=== PATIENT | female | born 1970 | race Caucasian/White ===

== ENCOUNTER 2018-05-09 14:28 | Outpatient (REF) | payer MEDICARE, SELFPAY ==
[2018-05-14 11:11] LABS: Codeine Negative ng/mL (Cutoff: 25); Dihydrocodeine 70 ng/mL (Cutoff: 25); Hydrocodone 348 ng/mL (Cutoff: 25); Hydromorphone Negative ng/mL (Cutoff: 25); Morphine Negative ng/mL (Cutoff: 25); Naloxone Negative ng/mL (Cutoff: 25); Norhydrocodone 1518 ng/mL (Cutoff: 25); Noroxycodone Negative ng/mL (Cutoff: 25); Noroxymorphone Negative ng/mL (Cutoff: 25); Opiates Interpretation Positive.
== END 2018-05-09 14:48 ==
LOC: NCHCN 14:28
PROVIDERS: PCP Family Medicine; Visit Provider Family Medicine
DX: M54.9 Dorsalgia, unspecified (principal); Z79.891 Long term (current) use of opiate analgesic; G89.29 Other chronic pain
CPT/HCPCS: 80361

== ENCOUNTER → 2018-11-05 08:42 | Outpatient (BNVA) | payer MEDICARE, MEDICAID, SELFPAY | PROVIDERS: PCP Family Medicine; Visit Provider Psychiatry & Neurology Neurology | DX: R55 Syncope and collapse (principal); R90.89 Other abnormal findings on diagnostic imaging of central nervous system; G43.709 Chronic migraine without aura, not intractable, without status migrainosus | CPT/HCPCS: 99205; 99215 ==

== ENCOUNTER 2018-11-10 00:56 | Outpatient (CLI) | payer MEDICARE, MEDICAID, SELFPAY ==
--- NOTE | 2018-11-10 08:41 | DI.MRI_ITS ---
SYMPTOM/DIAGNOSIS: ABNORMAL SIGNAL IN LT SYLVIAN FISSURE, R55,R90.89, H/O PASSING OUT, HEADACHES MRA [place]: MR angiography of the region of the [place] was performed according to the usual protocol. The patient reportedly has a history of possibly abnormal MRI in the region of left sylvian fissure raising the possibility of aneurysm. On today's examination, there is no evidence of an intracranial aneurysm of the middle cerebral branches on the left. The internal, carotid, basilar,anterior, middle and posterior cerebral arteries appear intact with no evidence of aneurysm, occlusion or stenosis. CONCLUSION: Negative MR angiography [place] region.
== END 2018-11-10 01:16 ==
PROVIDERS: PCP Family Medicine; Visit Provider Psychiatry & Neurology Neurology
DX: R55 Syncope and collapse (principal); R51 Headache; R90.89 Other abnormal findings on diagnostic imaging of central nervous system
CPT/HCPCS: 70544

== ENCOUNTER 2018-11-17 02:34 | Outpatient (CLI) | payer MEDICARE, SELFPAY ==
--- NOTE | 2018-12-15 14:56 | ZIOP_ITS ---
MONITOR IN PLACE: 13 days, 4 hours, November 252018 Baseline rhythm sinus. Rare single PAC. No SVT or atrial fibrillation. Rare single PVC. No VT. No bradycardia/block. 62 triggered events, all occurring during sinus rhythm with PVC's. SYMPTOMS: Skipped, irregular beats, lightheadedness, dizziness occurring during sinus rhythm +/- single PVC, 79 -93 bpm. Average heart rate sinus 84 bpm, range 61-138 bpm.
== END 2018-11-17 02:54 ==
PROVIDERS: PCP Family Medicine; Visit Provider Psychiatry & Neurology Neurology
DX: R69 Illness, unspecified (principal)

== ENCOUNTER 2018-11-25 10:00 | Outpatient (CLI) | payer MEDICARE, MEDICAID, SELFPAY ==
--- NOTE | 2018-12-02 10:26 | PDOC.EEG_ITS ---
EEG: [facility] Department of Neurology LONG-TERM AMBULATORY EEG REPORT Date of Recordin11/25/18 at 10:34:47 to 11/26/18 at 10:47:12 Interpreting Physician: Dr. Yenny Martinez PCP/Referring Provider: Dr. Molly Hinson Reason for study: Ms. Seth is a 48 year-old woman with history of known syncope and pre-syncope who has developed new spells with loss of awareness in the last 1 year. Current Medications: albuterol sulfate [ProAir HFA] 2 puff INHALATION Q4H PRN 12/19/15 gabapentin 900 mg PO HS 12/19/15 medroxyprogesterone 1 ea IM .Q3M 12/19/15 omeprazole 40 mg PO HS 12/19/15 quetiapine [Seroquel] 600 mg PO HS 12/19/15 sertraline [Zoloft] 300 mg PO HS 12/19/15 topiramate [Topamax] 200 mg PO HS 12/19/15 ranitidine HCl [Zantac] 1 tab PO HS 01/17/16 albuterol 90 mcg/actuation aerosol inhaler mcg IH .4-6 h PRN 09/17/18 atorvastatin 10 mg tablet 10 mg PO DAILY 09/17/18 cyclobenzaprine 10 mg tablet 10 mg PO HS tab 09/17/18 ezetimibe 10 mg tablet 10 mg PO DAILY 09/17/18 hydrocodone 5 mg-acetaminophen 325 mg tablet 1 tab PO TID tab 09/17/18 lorazepam 0.5 mg tablet 0.5 mg PO BID PRN tab 09/17/18 nitroglycerin 0.4 mg sublingual tablet 0.4 mg SL Q5-15M PRN 09/17/18 polyethylene glycol 3350 17 gram/dose oral powder 17 gm PO DAILY 09/17/18 quetiapine 50 mg tablet 50 mg PO BID 09/17/18 sumatriptan 100 mg tablet 100 mg PO BID PRN tab 09/17/18 acetaminophen 325 mg capsule 325 mg PO Q6H PRN 11/05/18 bupropion HCl 100 mg tablet 200 mg PO HS tab 11/05/18 midodrine 5 mg tablet 5 mg PO TID 11/05/18 naproxen sodium 220 mg capsule 220 mg PO BID PRN 03/27/19 METHODS: An 18-channel digitized electroencephalogram was recorded in the ambulatory setting with video. The 10/20 international system of electrode placement was used and bipolar and referential electrode montages were recorded. In addition to EEG the patient was monitored for EKG and by video. Activation procedures of photic stimulation and hyperventilation were performed if applicable. The duration of the recording was ~24 hours. DESCRIPTION OF EEG: Waking background activity: During maximal wakefulness a 9-Hz posterior background rhythm was present which was well-modulated, symmetrical, reactive to eye opening, and of moderate voltage. Faster frequencies were present in the bilateral anterior head regions. There was a normal anterior-posterior voltage gradient. Drowsy and sleeping background activity: During drowsiness, there was attenuation of the posterior dominant background rhythm and vertex waves. Normal stage II and III sleep was present with symmetrical sleep spindles, K- complexes, and vertex waves with slowing of the background rhythm to delta/theta frequencies. REM sleep was not seen. The patient had frequent nocturnal arousals. Arousal was unremarkable. Interictal abnormalities: none. Ictal findings: No events were recorded. Activating Procedures: Photic stimulation was not performed due to patient preference. Hyperventilation was performed with moderate effort and produced no physiological slowing of the background. EKG: EKG revealed normal sinus rhythm. INTERPRETATION: This long-term EEG is normal during the awake and sleep states as well as during the activation procedures. There were frequent nocturnal arousals and no REM sleep was captured. PRIOR EEG: none CLINICAL CORRELATION: No focal regions of cerebral dysfunction or epileptiform activity was present. Epilepsy remains a clinical diagnosis and a normal EEG does not rule out epilepsy. The frequent nocturnal arousals could indicate an underlying sleep disorder. Clinical correlation is advised. Yenny Martinez MD
== END 2018-11-25 10:20 ==
PROVIDERS: PCP Family Medicine; Visit Provider Psychiatry & Neurology Neurology
DX: R55 Syncope and collapse (principal); I49.3 Ventricular premature depolarization; I49.1 Atrial premature depolarization
CPT/HCPCS: 0296T; 95951; 95953

== ENCOUNTER 2018-12-15 11:03 | Outpatient (CLI) | payer MEDICARE, SELFPAY | END 2018-12-15 11:23 | PROVIDERS: PCP Family Medicine; Referring Provider Family Medicine; Visit Provider Internal Medicine Interventional Cardiology | DX: R55 Syncope and collapse (principal); I49.3 Ventricular premature depolarization; I49.1 Atrial premature depolarization | CPT/HCPCS: 0298T ==

== ENCOUNTER 2019-02-19 15:39 | Outpatient (REF) | payer MEDICARE, SELFPAY ==
[2019-02-19 21:25] LABS: ALT 30 U/L (12-78); AST 18 U/L (15-37); Albumin 3.5 g/dL (3.4-5.0); Alkaline Phosphatase 71 U/L (46-116); Anion Gap 13.9 mmol/L (3-11); BUN 14 mg/dL (7-18); Bilirubin, Total 0.2 mg/dL (0.2-1.0); CO2 18.1 mmol/L (21.0-32.0); CREATININE 0.88 mg/dL (0.55-1.02); Calcium 8.9 mg/dL (8.5-10.1); Chloride 109 mmol/L (98-107); Glucose 115 mg/dL (70-100); Potassium 4.4 mmol/L (3.5-5.1); Sodium 141 mmol/L (136-145); Total Protein 6.6 g/dL (6.4-8.2)
[2019-02-23 10:11] LABS: Rheumatoid Factor 8 IU/mL (<12.5)
[2019-02-23 10:42] LABS: Hepatitis C Ab w Rflx HCV PCR Negative (NEGAT)
[2019-02-23 11:54] LABS: Methylmalonic Acid 0.17 nmol/mL (<=0.40)
[2019-02-23 14:57] LABS: ANA Interpretation Negative (NEGAT)
== END 2019-02-19 15:59 ==
LOC: NCHCN 15:39
PROVIDERS: PCP Family Medicine; Visit Provider Family Medicine
DX: E53.8 Deficiency of other specified B group vitamins (principal); R55 Syncope and collapse; R23.3 Spontaneous ecchymoses; E78.2 Mixed hyperlipidemia; M19.90 Unspecified osteoarthritis, unspecified site; M25.50 Pain in unspecified joint
CPT/HCPCS: 80053; 80186; 86803; 86038; 86140; 86431

== ENCOUNTER 2019-06-04 12:43 | Outpatient (REF) | payer MEDICARE, SELFPAY ==
[2019-06-04 21:23] LABS: HCT 39.2 % (36.0-46.0); HGB 12.9 g/dL (12.0-15.5); Mean Corp. HGB Concentration 32.9 g/dL (32.0-36.0); Mean Corpuscular Hemoglobin 30.4 pg (27.0-33.0); Mean Corpuscular Volume 92.2 fL (80-95); Mean Platelet Volume 10.1 fL (8.0-11.0); Platelet Count 320 x1000/uL (130-400); RBC 4.25 m/cumm (4.00-5.20); RBC Distribution Width 15.5 % (11.7-14.6); White Blood Cell Count 12.07 k/cumm (4.4-10.8)
[2019-06-04 21:46] LABS: TSH (W/Ref FT4) 1.86 uIU/mL (0.36-3.74)
[2019-06-05 09:48] LABS: Vitamin B12 669 pg/mL (193-986)
== END 2019-06-04 13:03 ==
LOC: NCHCN 12:43
PROVIDERS: PCP Family Medicine; Visit Provider Family Medicine
DX: R10.9 Unspecified abdominal pain (principal); E53.8 Deficiency of other specified B group vitamins; R23.8 Other skin changes
CPT/HCPCS: 85027; 82607; 84443

== ENCOUNTER 2020-04-29 16:30 | Outpatient (REF) | payer MEDICARE, MEDICAID, SELFPAY ==
--- NOTE | 2020-04-29 13:45 | PAPFT_PTH ---
PATIENT: Manisha Seth LOC: [facility] U#:[id number] AGE/SX: 49/F ROOM: RE04/29/[address]: Molly Hinson V : 1970 BED: DIS: 04/29/2020 SPEC #: [id number] RECD: 04/29/20 18:12 STATUS: GERARD REQ #: [id number] JASON: 04/29/20 13:[address]: Molly Hinson V DEPT: [facility] Cytology RECD BY: Kalyani Johnson Tissues: 1 - CX/ENDOCX FOR PAP SMEARS Procedures: PAP THIN PREP/UVM Screening HPV DNA PROBE Comments: [id number]
[2020-04-29 19:30] LABS: Abs Immature Grans 0.04 10^3/uL (0.0-0.06); Absolute Basophil Count 0.05 10^3/uL (0.0-0.2); Absolute Monocyte Count 0.69 10^3/uL (0.1-0.8); Absolute Neutrophil Count 6.79 10^3/uL (1.2-6.7); Basophils % 0.4; Eosinophils % 1.7; HCT 38.9 % (36.0-46.0); HGB 12.9 g/dL (11.2-15.7); Immature Grans % 0.3; Lymphocytes % 35.1; MCH 30.6 pg (27.0-33.0); MCHC 33.2 % (32.0-36.0); MCV 92.2 fL (80-95); MPV 10.4 fL (8.0-11.0); Monocytes % 5.8; Neutrophils % 56.7; Nucleated RBC 0 %; Platelet Count 311 10^3/uL (130-400); RBC 4.22 10^6/uL (3.93-5.22); RDW 14.9 % (11.7-14.6); RDW-SD 50.6 fL; WBC 11.98 10^3/uL (4.4-10.8)
[2020-04-29 19:48] LABS: ALT 37 U/L (14-59); AST 21 U/L (15-37); Albumin 3.8 g/dL (3.4-5.0); Alkaline Phosphatase 71 U/L (46-116); Anion Gap 11.9 mmol/L (3-11); BUN 15 mg/dL (7-18); Bilirubin, Total 0.2 mg/dL (0.2-1.0); CO2 22.1 mmol/L (21.0-32.0); CREATININE 0.99 mg/dL (0.55-1.02); Chloride 106 mmol/L (98-107); Estimated GFR 59.37 (mL/min/1.73m2); Glucose 103 mg/dL (74-106); Potassium 4.2 mmol/L (3.5-5.1); Sodium 140 mmol/L (136-145); TSH (W/Ref FT4) 1.29 uIU/mL (0.36-3.74); Total Protein 6.8 g/dL (6.4-8.2)
== END 2020-04-29 16:50 ==
LOC: NCHCN 16:30
PROVIDERS: PCP Family Medicine; Visit Provider Family Medicine
DX: Z12.4 Encounter for screening for malignant neoplasm of cervix (principal); R23.8 Other skin changes; E66.9 Obesity, unspecified; Z11.51 Encounter for screening for human papillomavirus (HPV)
CPT/HCPCS: 80053; 88142; 84443; 85025; 87624

== ENCOUNTER 2020-05-02 01:17 | Outpatient (CLI) | payer MEDICARE, MEDICAID, SELFPAY ==
--- NOTE | 2020-05-02 11:07 | DI.RAD_ITS ---
EXAM: XR CHEST 2V PA LATERAL CLINICAL HISTORY: DYSPNEA ON EXERTION,R06.09, ABNL BOWEL SOUNDS, R19.15 TECHNIQUE: 2D digital imaging was performed. COMPARISON: No exams were available for comparison FINDINGS: MEDIASTINUM: Normal. HEART: Normal. PULMONARY VASCULATURE: Normal. LUNGS: Clear. PLEURAL SPACE: No pleural effusion or pneumothorax. BONE:Within normal limits for the patient's age. OTHER FINDINGS:Normal. IMPRESSION: No acute pulmonary findings. DATA REPOSITORY: RADIATION DOSE DELIVERED:
== END 2020-05-02 01:37 ==
PROVIDERS: PCP Family Medicine; Visit Provider Family Medicine
DX: R06.09 Other forms of dyspnea (principal); R19.15 Other abnormal bowel sounds
CPT/HCPCS: 71046

== ENCOUNTER → 2020-05-25 13:45 | Outpatient (BNVA) | payer MEDICARE, MEDICAID, SELFPAY | PROVIDERS: PCP Family Medicine; Referring Provider Family Medicine; Visit Provider Surgery | DX: K21.9 Gastro-esophageal reflux disease without esophagitis (principal); K58.9 Irritable bowel syndrome, unspecified; Z80.0 Family history of malignant neoplasm of digestive organs | CPT/HCPCS: 99214; 99242 ==

== ENCOUNTER 2020-06-06 07:44 | Outpatient (CLI) | payer MEDICARE, MEDICAID, SELFPAY ==
[2020-06-07 20:43] LABS: COVID-19 RT-PCR Result NEGATIVE (Negative)
== END 2020-06-06 08:04 ==
PROVIDERS: PCP Family Medicine; Visit Provider Surgery
DX: Z01.818 Encounter for other preprocedural examination (principal); Z11.59 Encounter for screening for other viral diseases
CPT/HCPCS: U0003

== ENCOUNTER 2020-06-09 11:16 | Day surgery (SDC) | payer MEDICARE, MEDICAID, SELFPAY ==
[2020-06-09 11:23] VITALS: BP 117/81; PULSE 106; RESP 22; TEMP 36.4; O2SAT 95
[2020-06-09] MEDS: Lactated Ringers 1,000 ML 80 ML IV (11:47)
--- NOTE | 2020-06-09 12:33 | BOWEL_PTH ---
PATIENT: Manisha Seth LOC: [facility] U#:[id number] AGE/SX: 50/F ROOM: RE06/09/[address]: Teresa Rebolledo : 1970 BED: DIS: 06/09/2020 SPEC #: [id number] RECD: 06/09/20 17:07 STATUS: GERARD REQ #: [id number] JASON: 06/09/20 12:[address]: Teresa Rebolledo DEPT: Surgical Specimen RECD BY: Kalyani Johnson ENTERED: 06/09/20 17:10 SP TYPE: Bowel OTHR DR: Molly Hinson V Tissues: 1 - BIOPSY BOWEL 2 - STOMACH BIOPSY 3 - STOMACH BIOPSY 4 - ESOPHAGUS BIOPSY 5 - ESOPHAGUS BIOPSY 6 - BIOPSY BOWEL 7 - BIOPSY BOWEL 8 - BIOPSY BOWEL 9 - BIOPSY BOWEL 10 - BIOPSY BOWEL Procedures: GROSS AND MICRO LEVEL 4 Comments: [id number] ([facility]#)
[2020-06-09 13:30] VITALS: BP 142/72; PULSE 75; RESP 20; TEMP 36.7; O2SAT 97
[2020-06-09 13:35] VITALS: BP 136/70; PULSE 74; RESP 21; TEMP 36.7; O2SAT 97
[2020-06-09 13:40] VITALS: BP 143/73; PULSE 74; RESP 19; TEMP 36.7; O2SAT 95
[2020-06-09 13:45] VITALS: BP 136/70; PULSE 73; RESP 20; TEMP 36.7; O2SAT 95
--- NOTE | 2020-06-09 13:53 | W.PM.ENDDOP ---
Date of service: 06/09/20 Time of Service: 13:53 Endoscopy Report DATE OF PROCEDURE: 06/09/20 PRE-OP DIAGNOSIS: gerd POST-OP DIAGNOSIS: other (hiatal hernia/gastritis/bile reflux) PROCEDURE: EGD w/ BX SURGEON: Teresa Rebolledo ANESTHESIA: GETA ESTIMATED BLOOD LOSS: 1 PATHOLOGY: other COMPLICATIONS: None DISPOSITION: PACU PROCEDURE DESCRIPTION: After informed consent was obtained the patient was take to the procedure room and placed in a supine position. Monitors were applied and a time out was done. The patients name, date of , procedure type, allergies to medications and metal in their body was reviewed. A bite block was placed and the patient was sedated. Once sedated and comfortable the gastroscope was advanced through the oropharynx which was grossly normal into the esophagus. The proximal and mid-esophagus were nl. In the distal esophagus there was mild erthyema noted. No esophageal strictures/varices /diverticula noted. There is some mild esophagitis at the GE junction. She has a small hiatal hernia. The scope was advanced into the stomach and through the pylorus into the 3rd portion of the duodenum. The duodenum was noted to be nl. Biopsies were done all specimens are retrieved and no bleeding is noted.. The scope was retracted back into the stomach and biopsies were done to rule out H. pylori. There were no ulcers. Mild gastritis at the antrum in a striped fashion. The scope was retroflexed. The cardia and fundus were noted to be normal. There small a hiatal hernia noted. The scope was retracted back into the esophagus and biopsies were done of the GE junction to rule out Zamora's. The Z line was regular.
--- NOTE | 2020-06-09 13:55 | COLE_ITS ---
Date of service: 06/09/20 Time of Service: 13:55 Colonoscopy Report Date of procedure: 06/09/20 Surgeon: Teresa Rebolledo Anesthesia proc note operative: GETA Estimated blood loss (mL): 1 Pathology: other Complications: None Disposition: PACU Prep: Miralax/Dulcolax Retraction Time: 25 mins Procedure Description: After informed consent was obtained the patient was taken to the procedure room and placed in a left decubitous position. Monitors were applied and a time out was done. The patients name, date of , procedure, allergies to medications and metal in their body was reviewed. The patient was then sedated. Once sedated and comfortable a rectal exam was done. External exam was normal. Internal exam revealed a normal sphincter tone and no palpable masses. The scope was then introduced and retrofelexed. No internal hemorrhoids were identified. The scope was then advanced to the cecum w difficulty. The colon is very tortuous. The TI and appendiceal orifice were identified. The prep was good. The scope was then slowly retracted over 25 minutes back into the rectum. Polyps were removed at: 20cm- hot snare. .75cm O- IIa. 70cm- hot biter. 5mm O-IIb 60cm- cold biter. 50cmx2: one w/ a cold biter and one w/ a hot snare. O- IIb & IIa. The scope was removed and the patient was woken up and taken back to Same day surgery in stable condition. The patient tolerated the procedure well and there were no immediate complications. Follow up: The patient should follow up in 3-5 years, path pd, unless they develop changes in bowel habits or other new gastrointestinal complaints.
--- NOTE | 2020-06-09 14:10 | W.PM.DSUDISC ---
Discharge Plan Disposition Patient Disposition: HOME Condition: Good Discharge Details Reason For Visit: e Attending Provider: Teresa Rebolledo Primary Care Provider: Molly Hinson V Home Meds and New Rx's Prescriptions: New pantoprazole [Protonix] 40 mg tablet,delayed release (DR/EC) 40 mg PO DAILY Qty: 30 RF: 12 sucralfate [Carafate] 1 gram tablet 1 g PO QACHS Qty: 120 RF: 12 Continued midodrine 5 mg tablet 5 mg PO TID RF: 0 acetaminophen [Tylenol] 325 mg capsule 325 mg PO Q6H PRNRF: 0 naproxen sodium [Aleve] 220 mg capsule 220 mg PO BID PRNRF: 0 atorvastatin [Lipitor] 10 mg tablet 10 mg PO DAILY RF: 0 sumatriptan succinate [Imitrex] 100 mg tablet 100 mg PO BID PRN (Reason: prn) RF: 0 lorazepam [Ativan] 0.5 mg tablet 0.5 mg PO BID PRNRF: 0 nitroglycerin [Nitrostat] 0.4 mg tablet, sublingual 0.4 mg SL Q5-15M PRNRF: 0 ezetimibe [Zetia] 10 mg tablet 10 mg PO DAILY RF: 0 quetiapine [Seroquel] 50 mg tablet 50 mg PO BID RF: 0 cyclobenzaprine 10 mg tablet 10 mg PO HS RF: 0 polyethylene glycol 3350 [Miralax] 17 gram/dose powder 17 gm PO DAILY RF: 0 hydrocodone-acetaminophen 5-325 mg tablet 1 tab PO TID RF: 0 bisacodyl [Dulcolax (bisacodyl)] 5 mg tablet,delayed release (DR/EC) 5 mg PO ONCE Qty: 4 RF: 0 bupropion HCl [Wellbutrin SR] 150 mg tablet sustained-release 12 hr 150 mg PO BID RF: 0 hydrocodone-acetaminophen 5-325 mg tablet 1 tab PO BID PRNRF: 0 lorazepam [Ativan] 0.5 mg tablet 0.5 mg PO DAILY PRNRF: 0 sertraline [Zoloft] 100 MG tablet 300 mg PO HS RF: 0 quetiapine [Seroquel] 200 MG tablet 600 mg PO HS RF: 0 gabapentin 300 MG capsule 900 mg PO HS RF: 0 topiramate [Topamax] 200 MG tablet 200 mg PO HS RF: 0 albuterol sulfate [ProAir HFA] 200 PUFF HFA aerosol inhaler 2 puff Inhalation Q4H PRNRF: 0 medroxyprogesterone 150 MG/ML suspension 1 ea IM .Q3M RF: 0 Changed famotidine 20 mg tablet 20 mg PO BID Qty: 0 RF: 0 Discontinued polyethylene glycol 3350 17 gram/dose powder 238 g PO ONCE Qty: 238 RF: 0 omeprazole 40 MG capsule,delayed release(DR/EC) 40 mg PO HS RF: 0 Discharge Instructions Additional Instructions: Findings:hiatal hernia/esophagitis/colon polyps Follow up:Continue with lifestyle modifications: no alcohol, tobacco products, Aspirin or NSAID's (ibuprofen, Motrin, Naprosyn, aleve, etc), soda pop/any carbonated beverages, caffeine (including tea & chocolate), and acidic foods, (tomatoes, citrus, onions, peppermints) spicy or fried/fatty foods. Do not lie down for 30 minutes after eating, and do not eat 2 hours prior to bedtime. Avoid wearing tight fitting clothing/ belts. -Note medication changes. -repeat colonoscopy in 3-5yrs. WIll send a letter w/ results of the pathology report and when to repeat the scope. Please call if you develop: fevers >101.5 Nausea or Vomiting Abdominal pain that is not transient DAY SURGERY UNIT POST COLONOSCOPY INSTRUCTIONS 1. Because there will be medication in your system for the next 24 hours, you may feel a little sleepy. Your coordination will be affected. Therefore: a. Do not drive or operate dangerous equipment for 24 hours. b. Do not drink alcohol beverages for 24 hours (not even beer). c. Plan to go home and rest for the day. 2. Generally there are no restrictions on your activity after a day or so has gone by, but you may feel a bit fatigued for a few days. 3 After you arrive home you may have a light meal and return to a normal diet as you can tolerate it without feeling sick to your stomach. 4. After surgery, you may feel pain or discomfort. This should be only transient, but if it persists please contact your doctor. 5. If there are any questions regarding the findings of your procedure, please feel free to contact your doctor. 6. If you are unable to contact your doctor with a problem, contact the hospital at [phone]. 4. Continue all your regular medications unless directed otherwise. I understand the above instructions and have no questions. Signature of Patient or Responsible Adult Escort Date/Time Name of Responsible Adult Escort Signature of Nurse Date/Time Activity:: No strenuous activity or heavy lifting x24 hours Diet:: Small light meals x24 hours Discharge Orders Discharge Orders: Discharge Order (Routine); Ordered 06/09/20 Ordered By: Teresa Rebolledo DS: Diagnosis Discharge Diagnosis (1) GERD (gastroesophageal reflux disease): Status: Chronic (2) Hiatal hernia with GERD: Status: Acute (3) Adenomatous colon polyp: Status: Acute
[2020-06-09 14:25] VITALS: BP 124/70; PULSE 78; RESP 20; TEMP 37.1; O2SAT 97
--- NOTE | 2020-06-15 15:23 | W.PM.DSUDISC ---
Discharge Plan Disposition Patient Disposition: HOME Condition: Good Discharge Details Reason For Visit: e Attending Provider: Teresa Rebolledo Primary Care Provider: Molly Hinson V Home Meds and New Rx's Prescriptions: New pantoprazole [Protonix] 40 mg tablet,delayed release (DR/EC) 40 mg PO DAILY Qty: 30 RF: 12 sucralfate [Carafate] 1 gram tablet 1 g PO QACHS Qty: 120 RF: 12 Continued midodrine 5 mg tablet 5 mg PO TID RF: 0 acetaminophen [Tylenol] 325 mg capsule 325 mg PO Q6H PRNRF: 0 naproxen sodium [Aleve] 220 mg capsule 220 mg PO BID PRNRF: 0 atorvastatin [Lipitor] 10 mg tablet 10 mg PO DAILY RF: 0 sumatriptan succinate [Imitrex] 100 mg tablet 100 mg PO BID PRN (Reason: prn) RF: 0 lorazepam [Ativan] 0.5 mg tablet 0.5 mg PO BID PRNRF: 0 nitroglycerin [Nitrostat] 0.4 mg tablet, sublingual 0.4 mg SL Q5-15M PRNRF: 0 ezetimibe [Zetia] 10 mg tablet 10 mg PO DAILY RF: 0 quetiapine [Seroquel] 50 mg tablet 50 mg PO BID RF: 0 cyclobenzaprine 10 mg tablet 10 mg PO HS RF: 0 polyethylene glycol 3350 [Miralax] 17 gram/dose powder 17 gm PO DAILY RF: 0 hydrocodone-acetaminophen 5-325 mg tablet 1 tab PO TID RF: 0 bisacodyl [Dulcolax (bisacodyl)] 5 mg tablet,delayed release (DR/EC) 5 mg PO ONCE Qty: 4 RF: 0 bupropion HCl [Wellbutrin SR] 150 mg tablet sustained-release 12 hr 150 mg PO BID RF: 0 hydrocodone-acetaminophen 5-325 mg tablet 1 tab PO BID PRNRF: 0 lorazepam [Ativan] 0.5 mg tablet 0.5 mg PO DAILY PRNRF: 0 sertraline [Zoloft] 100 MG tablet 300 mg PO HS RF: 0 quetiapine [Seroquel] 200 MG tablet 600 mg PO HS RF: 0 gabapentin 300 MG capsule 900 mg PO HS RF: 0 topiramate [Topamax] 200 MG tablet 200 mg PO HS RF: 0 albuterol sulfate [ProAir HFA] 200 PUFF HFA aerosol inhaler 2 puff Inhalation Q4H PRNRF: 0 medroxyprogesterone 150 MG/ML suspension 1 ea IM .Q3M RF: 0 Changed famotidine 20 mg tablet 20 mg PO BID Qty: 0 RF: 0 Discontinued polyethylene glycol 3350 17 gram/dose powder 238 g PO ONCE Qty: 238 RF: 0 omeprazole 40 MG capsule,delayed release(DR/EC) 40 mg PO HS RF: 0 Discharge Instructions Additional Instructions: Findings:hiatal hernia/esophagitis/colon polyps Follow up:Continue with lifestyle modifications: no alcohol, tobacco products, Aspirin or NSAID's (ibuprofen, Motrin, Naprosyn, aleve, etc), soda pop/any carbonated beverages, caffeine (including tea & chocolate), and acidic foods, (tomatoes, citrus, onions, peppermints) spicy or fried/fatty foods. Do not lie down for 30 minutes after eating, and do not eat 2 hours prior to bedtime. Avoid wearing tight fitting clothing/ belts. -Note medication changes. -repeat colonoscopy in 3-5yrs. WIll send a letter w/ results of the pathology report and when to repeat the scope. Please call if you develop: fevers >101.5 Nausea or Vomiting Abdominal pain that is not transient DAY SURGERY UNIT POST COLONOSCOPY INSTRUCTIONS 1. Because there will be medication in your system for the next 24 hours, you may feel a little sleepy. Your coordination will be affected. Therefore: a. Do not drive or operate dangerous equipment for 24 hours. b. Do not drink alcohol beverages for 24 hours (not even beer). c. Plan to go home and rest for the day. 2. Generally there are no restrictions on your activity after a day or so has gone by, but you may feel a bit fatigued for a few days. 3 After you arrive home you may have a light meal and return to a normal diet as you can tolerate it without feeling sick to your stomach. 4. After surgery, you may feel pain or discomfort. This should be only transient, but if it persists please contact your doctor. 5. If there are any questions regarding the findings of your procedure, please feel free to contact your doctor. 6. If you are unable to contact your doctor with a problem, contact the hospital at [phone]. 9. Continue all your regular medications unless directed otherwise. I understand the above instructions and have no questions. Signature of Patient or Responsible Adult Escort Date/Time Name of Responsible Adult Escort Signature of Nurse Date/Time Stand Alone Forms: [place] (DSU) Activity:: No strenuous activity or heavy lifting x24 hours Diet:: Small light meals x24 hours Discharge Orders Discharge Orders: Discharge Order (Routine); Ordered 06/09/20 Ordered By: Teresa Rebolledo Discharge Data Discharge Date/Time-TO BE ENTERED AT DEPARTURE: 06/09/20 15:20 Discharge Comment: Pt walked out to her 's car. DS: Diagnosis Discharge Diagnosis (1) GERD (gastroesophageal reflux disease): Status: Chronic (2) Hiatal hernia with GERD: Status: Acute (3) Adenomatous colon polyp: Status: Acute
== END 2020-06-09 15:20 | disposition home or self-care (01) ==
PROVIDERS: PCP Family Medicine; Visit Provider Surgery
PROC: (CPT 45385; principal; 2020-06-09 11:45)
DX: Z12.11 Encounter for screening for malignant neoplasm of colon (principal); K21.00 Gastro-esophageal reflux disease with esophagitis, without bleeding; K29.70 Gastritis, unspecified, without bleeding; K44.9 Diaphragmatic hernia without obstruction or gangrene; Z79.01 Long term (current) use of anticoagulants; I48.91 Unspecified atrial fibrillation; F31.9 Bipolar disorder, unspecified; M79.7 Fibromyalgia; F17.210 Nicotine dependence, cigarettes, uncomplicated; K63.5 Polyp of colon
CPT/HCPCS: 45385; 45380; 43239; 88305; J2001; J2704

== ENCOUNTER 2020-08-18 18:45 | Outpatient (REF) | payer MEDICARE, MEDICAID, SELFPAY ==
[2020-08-20 11:36] LABS: COVID-19 RT-PCR UVMMC Result Negative (Negative)
== END 2020-08-18 19:05 ==
LOC: NCHCN 18:45
PROVIDERS: PCP Family Medicine; Visit Provider Family Medicine
DX: J06.9 Acute upper respiratory infection, unspecified (principal)
CPT/HCPCS: U0003

== ENCOUNTER 2021-03-03 04:37 | Outpatient (CLI) | payer MEDICARE, MEDICAID, SELFPAY ==
--- NOTE | 2021-03-03 | DI.MAMMO_ITS ---
Exam(s) MAMMO SCREENING EXAM: MAMMO SCREENING CLINICAL HISTORY: SCREENING, TECHNIQUE: Mammograms were interpreted according to the usual protocol including computer analysis w [employer] CAD system, tomosynthesis and C-view imaging. COMPARISON: 2014 FINDINGS: The breasts are composed of scattered fibroglandular densities, Breast Density category B. No suspicious masses or suspicious microcalcifications are seen. No skin thickening or abnormal axillary lymph nodes are seen. There has been no significant change from prior exams. IMPRESSION: BI-RADS Category 1, Negative mammogram Yearly screening mammography is recommended. Breast Density - Category B, scattered fibroglandular densities. A negative radiographic report should not delay biopsy if a dominant or clinically suspicious mass is present. Up to ten percent of cancers are not identified on mammography. A negative report may reinforce clinical impression. Adenosis and dense breasts may obscure an underlying neoplasm. False positive reports average 6 to 10%. Patient will receive a letter notifying them of these results.
--- NOTE | 2021-03-03 14:28 | DI.RAD_ITS ---
Exam(s) XR LUMBAR SPINE COMPLETE EXAM: XR LUMBAR SPINE COMPLETE CLINICAL HISTORY: LOW BACK PAIN, ACUTE, M54.5. TECHNIQUE: 2D digital imaging was performed. COMPARISON: No exams were available for comparison FINDINGS: BONES: No fracture or destructive lesion. Vertebral bodies are unremarkable. Minimal endplate osteop hytes. Minimal facet hypertrophy identified. DISKS: Intervertebral disc spaces are maintained. ALIGNMENT: Lumbar spinal alignment is within normal limits. SOFT TISSUE: Aortic calcified but normal in diameter. Cholecystectomy clips. IMPRESSION: Mild degenerative changes. DATA REPOSITORY: RADIATION DOSE DELIVERED:
== END 2021-03-03 04:57 ==
PROVIDERS: PCP Family Medicine; Visit Provider Family Medicine
DX: Z12.31 Encounter for screening mammogram for malignant neoplasm of breast (principal); R92.8 Other abnormal and inconclusive findings on diagnostic imaging of breast; M47.816 Spondylosis without myelopathy or radiculopathy, lumbar region
CPT/HCPCS: 77063; 77067; 72110

== ENCOUNTER 2021-05-02 19:11 | Outpatient (REF) | payer MEDICARE, MEDICAID, SELFPAY ==
[2021-05-02 20:33] LABS: HCT 40.3 % (36.0-46.0); HGB 13.2 g/dL (11.2-15.7)
[2021-05-02 21:11] LABS: ALT 36 U/L (14-59); AST 21 U/L (15-37); Albumin 3.7 g/dL (3.4-5.0); Alkaline Phosphatase 79 U/L (46-116); Anion Gap 10.1 mmol/L (3-11); BUN 11 mg/dL (7-18); Bilirubin, Total 0.2 mg/dL (0.2-1.0); CO2 22.9 mmol/L (21.0-32.0); CREATININE 0.9 mg/dL (0.55-1.02); Calcium 8.8 mg/dL (8.5-10.1); Calculated LDL 106 mg/dL (<100); Chloride 107 mmol/L (98-107); Cholesterol 177 mg/dL (<200); Glucose 88 mg/dL (74-106); HDL Cholesterol 42 mg/dL (40-60); Potassium 4.5 mmol/L (3.5-5.1); Sodium 140 mmol/L (136-145); TSH (W/Ref FT4) 1.76 uIU/mL (0.36-3.74); Total Protein 6.8 g/dL (6.4-8.2); Triglyceride 145 mg/dL (<150)
[2021-05-02 21:27] LABS: Hemoglobin A1C 5.6 % (<5.7)
[2021-05-02 22:14] LABS: Vitamin B12 746 pg/mL (193-986)
[2021-05-03 17:00] LABS: LH 10.6 mIU/mL (See Note)
[2021-05-03 17:08] LABS: FSH 12.3 mIU/mL (See Note)
[2021-05-11 11:51] LABS: Testosterone, Free 0.85 ng/dL (0.06-0.92); Testosterone, Total 37 ng/dL (8-60)
== END 2021-05-02 19:12 | disposition home or self-care (01) ==
LOC: NCHCN 19:11
PROVIDERS: PCP Family Medicine; Referring Provider Family Medicine; Visit Provider Family Medicine
DX: E78.2 Mixed hyperlipidemia (principal); E53.8 Deficiency of other specified B group vitamins; N64.59 Other signs and symptoms in breast; N64.4 Mastodynia
CPT/HCPCS: 80053; 80061; 84402; 84403; 82607; 83001; 83002; 83036; 84443; 85014; 85018

== ENCOUNTER 2021-05-09 15:10 | Outpatient (REF) | payer MEDICARE, MEDICAID, SELFPAY ==
--- OUTSIDE RECORDS SUMMARY | 2021-05-09 15:17 | XMS_ITS ---
:1970 Author Care Team Providers Name Role Phone DR. TAMICA HERNANDEZ Primary Care Provider [phone] DR. TAMICA HERNANDEZ Referring Provider [phone] Allergies Code Code System Name Reaction Severity Status Onset 082996 RxNorm Cymbalta ? ? Active ? 397755 RxNorm Dexilant ? ? Active ? 3423 RxNorm Hydromorphone ? ? Active ? 7984 RxNorm Penicillin v ? ? Active ? Vytorin ? ? Active ? 489654 RxNorm Zocor ? ? Active ? Medications Name Status Start Date Stop Date ? ? Ativan 0.5 mg tablet Active ? Not availab le Take 1 tablet twice a day by oral route as needed. cyanocobalamin (vit B-12) 1,000 mcg/mL injection solution Active ? Not available Inject 1 mL every month by intramuscular route. cyclobenzaprine 10 mg tablet Active ? Not available Take 1 tablet 3 times a day by oral route as needed. Depo-Provera 150 mg/mL intramuscular suspension Active ? Not available Inject 1 mL every 3 months by intramuscular route. hydrocodone 5 mg-acetaminophen 325 mg tablet Active ? Not available Take 1 tablet 3 times a day by oral route as needed. Imitrex 100 mg tablet Active ? Not availa ble TAKE 1 TABLET (100 MG) BY ORAL ROUTE AF TER ONSET OF MIGRAINE; MAY REPEAT AFTER 2 HOURS IF HEADACHE RETURNS, NOT TO EXCEED 200MG IN 24HRS Lipitor 10 mg tablet Active ? Not availab le Take 1 tablet every day by oral route. midodrine 5 mg tablet Active ? Not availa ble Take 1 tablet twice a day by oral route. Miralax 17 gram oral powder packet Active ? Not available Take 1 packet every day by oral route. Narcan 4 mg/actuation nasal spray Active ? Not available SPRAY 0.1 MILLILITER (4 MG) IN 1 NOSTRI L BY INTRANASAL ROUTE MAY REPEAT DOSE EVERY 2-3 MINUTES NEEDED ALTERNATING NOSTRILS WITH EACH DOSE Neurontin 300 mg capsule Active ? Not chloe ilable Take 3 capsules every day by oral route in the evening. Nicoderm CQ 21 mg/24 hr daily transdermal patch Active ? Not available Apply 1 patch every day by transdermal route. Nicorette 4 mg gum Active ? Not available Chew 1 piece of gum every 2 hours by oral route. Nitrostat 0.4 mg sublingual tablet Active ? Not available PLACE 1 TABLET (0.4 MG) BY SUBLINGUAL R OUTE EVERY 5 MINUTES NEEDEDFOR CHEST PAIN. DO NOT EXCEED 3 DOSES IN 15 MINUTES. omeprazole 20 mg tablet,delayed release Active ? Not available Take 1 tablet twice a day by oral route. ProAir HFA 90 mcg/actuation aerosol inhaler Active ? Not available Inhale 2 puffs every 4 hours by inhalation route as needed. ranitidine 150 mg tablet Active ? Not chloe ilable Take 1 tablet every day by oral route. Seroquel 200 mg tablet Active ? Not avail able Take 3 tablets every day by oral route at bedtime. Seroquel 50 mg tablet Active ? Not availa ble Take 1 tablet twice a day by oral route. Topamax 200 mg tablet Active ? Not availa ble Take 1 tablet every day by oral route in the evening. Wellbutrin XL 150 mg 24 hr tablet, extended release Active ? Not available Take 1 tablet twice a day by oral route. Zetia 10 mg tablet Active ? Not available Take 1 tablet every day by oral route. Zoloft 100 mg tablet Active ? Not availab le Take 3 tablets every day by oral route. Problems Name Status Onset Date Source ? Cobalamin Deficiency Active 09/24/2018 ? Hyperlipidemia Active 09/24/2018 ? Obesity Active 09/24/2018 ? Bipolar Disorder Active 09/24/2018 ? Smoker Active 09/24/2018 ? Reactive Depression (Situational) Active 09/24/2018 ? Migraine Active 09/24/2018 ? Visual Impairment Active 09/24/2018 ? Cardiomyopathy Active 09/24/2018 ? Low Blood Pressure Active 09/24/2018 ? Asthma Active 09/24/2018 ? Gastroesophageal Reflux Disease Active 09/24/2018 ? Duodenitis Active 09/24/2018 ? Disorder of Stomach Active 09/24/2018 ? Constipation Active 09/24/2018 ? Irritable Bowel Syndrome Active 09/24/2018 ? Furuncle Active 09/24/2018 ? Itching of Skin Active 09/24/2018 ? Foot Callus Active 09/24/2018 ? Skin Lesion Active 09/24/2018 ? Arthritis Active 09/24/2018 ? Shoulder Pain Active 09/24/2018 ? Prolapsed Lumbar Intervertebral Disc Active 09/24/2018 ? Chronic Back Pain Active 09/24/2018 ? Foot Pain Active 09/24/2018 ? Syncope Active 09/24/2018 ? Paresthesia Active 09/24/2018 ? Palpitations Active 09/24/2018 ? Chest Pain Active 09/24/2018 ? Rib Pain Active 09/24/2018 ? Falls Active 09/24/2018 ? Family History of Cancer of Colon Active 09/24/2018 ? Pain in Left Knee Active 09/24/2018 ? Bilateral Hip Joint Pain Active 09/24/2018 ? Procedures Date Name Performed by ? ? Cholecystectomy Information not avai lable ? Knee Surgery Information not avai lable ? Shoulder Surgery Information not avai lable Results Lab Results None recorded. Past Encounters None recorded. Social History Tobacco Smoking Status Current Every Day Smoker Notes: pp d--10/14/18 Vaccine List Vaccine Type pneumococcal polysaccharide PPV23 03/16/2010 Tdap 03/16/2010 Plan of Care Reminders Provider Appointments None ? ? recorded. Lab None ? ? recorded. Referral None ? ? recorded. Procedures None ? ? recorded. Surgeries None ? ? recorded. Imaging None ? ? recorded. Vitals Height Weight BMI Blood Pressure 167.64 cm 127.01 kg 45.2 kg/m2 122/58 mm[Hg]
[2021-05-13 04:54] LABS: Methadone Interpretation Positive.; Methadone-by GC-MS 164 ng/mL (Cutoff: 100)
[2021-05-17 12:28] LABS: Phencyclidine Negative ng/mL (Cutoff: 10); Phencyclidine Interpretation Negative.
== END 2021-05-09 15:11 | disposition home or self-care (01) ==
LOC: NCHCN 15:10
PROVIDERS: PCP Family Medicine; Visit Provider Family Medicine
DX: Z51.81 Encounter for therapeutic drug level monitoring (principal)
CPT/HCPCS: 80358; 83992

== ENCOUNTER 2021-06-29 16:54 | Outpatient (REF) | payer MEDICARE, MEDICAID, SELFPAY ==
[2021-06-29 20:23] LABS: *AMPHETAMINES SCREEN URINE Negative (Negative); *BARBITURATES SCREEN URINE Negative (Negative); *BENZODIAZEPINES SCREEN URINE Negative (Negative); Cannabinoids THC Negative (Negative); Cocaine Screen,Urine Negative (Negative); METHADONE URINE SCREEN Negative (Negative); OPIATES URINE SCREEN Negative (Negative)
[2021-06-29 20:33] LABS: Tricyclic Antidepressants Positive (Negative)
== END 2021-06-29 16:55 | disposition home or self-care (01) ==
LOC: NCHCN 16:54
PROVIDERS: PCP Family Medicine; Visit Provider Family Medicine
DX: Z51.81 Encounter for therapeutic drug level monitoring (principal)
CPT/HCPCS: 80307

== ENCOUNTER 2021-07-12 09:00 | Outpatient (REF) | payer MEDICARE, MEDICAID, SELFPAY ==
[2021-07-15 01:57] LABS: Methadone-by GC-MS Negative ng/mL (Cutoff: 100)
[2021-07-15 11:03] LABS: Codeine Negative ng/mL (Cutoff: 25); Dihydrocodeine 272 ng/mL (Cutoff: 25); Hydrocodone 1351 ng/mL (Cutoff: 25); Hydromorphone 41 ng/mL (Cutoff: 25); Morphine Negative ng/mL (Cutoff: 25); Naloxone Negative ng/mL (Cutoff: 25); Norhydrocodone 3962 ng/mL (Cutoff: 25); Noroxycodone Negative ng/mL (Cutoff: 25); Noroxymorphone Negative ng/mL (Cutoff: 25); Opiates Interpretation Positive.
== END 2021-07-12 09:01 | disposition home or self-care (01) ==
LOC: NCHCN 09:00
PROVIDERS: PCP Family Medicine; Visit Provider Family Medicine
DX: Z51.81 Encounter for therapeutic drug level monitoring (principal); M54.59 Other low back pain
CPT/HCPCS: 80361; 80362; 80365; 80358

== ENCOUNTER 2021-08-03 13:03 | Outpatient (REF) | payer MEDICARE, MEDICAID, SELFPAY ==
[2021-08-03 19:49] LABS: ESR 24 mm/hr (0-30)
[2021-08-03 19:55] LABS: ALT 31 U/L (14-59); AST 30 U/L (15-37); Albumin 3.6 g/dL (3.4-5.0); Alkaline Phosphatase 78 U/L (46-116); Anion Gap 10.2 mmol/L (3-11); BUN 10 mg/dL (7-18); Bilirubin, Total 0.2 mg/dL (0.2-1.0); C-Reactive Protein 1.04 mg/dL (0.0-0.3); CO2 23.8 mmol/L (21.0-32.0); CREATININE 0.9 mg/dL (0.55-1.02); Calcium 8.5 mg/dL (8.5-10.1); Chloride 105 mmol/L (98-107); Glucose 92 mg/dL (74-106); Potassium 3.9 mmol/L (3.5-5.1); Sodium 139 mmol/L (136-145); Total Protein 6.6 g/dL (6.4-8.2)
[2021-08-04 18:56] LABS: Rheumatoid Factor <8.6 IU/mL (<12.0)
[2021-08-07 13:39] LABS: IgA 151 mg/dL (85-499); Interpretation (See Note); Tissue Transglutaminase IgA <1.2 U/mL (<4.0)
[2021-08-08 05:34] LABS: Methadone-by GC-MS 0 ng/mL (Cutoff: 100)
== END 2021-08-03 13:04 | disposition home or self-care (01) ==
LOC: NCHCN 13:03
PROVIDERS: PCP Family Medicine; Visit Provider Family Medicine
DX: R52 Pain, unspecified (principal); L29.9 Pruritus, unspecified; Z51.81 Encounter for therapeutic drug level monitoring
CPT/HCPCS: 80053; 82784; 83516; 85652; 80358; 86140; 86431

== ENCOUNTER 2021-08-31 16:02 | Outpatient (REF) | payer OTHER, MEDICAID, SELFPAY ==
[2021-09-04 14:28] LABS: ANA Interpretation Negative (Negative)
== END 2021-08-31 16:03 | disposition home or self-care (01) ==
LOC: NCHCN 16:02
PROVIDERS: PCP Family Medicine; Visit Provider Family Medicine
DX: M25.59 Pain in other specified joint (principal); M79.7 Fibromyalgia
CPT/HCPCS: 86038

== ENCOUNTER 2022-04-27 12:48 | Outpatient (REF) | payer OTHER, SELFPAY ==
--- NOTE | 2022-04-27 12:00 | SKI_PTH ---
PATIENT: Man[facility] Seth [id number] AGE/SX: 51/F ROOM: RE04/27/[address]: Molly Hinson V : 1970 BED: DIS: 04/27/2022 SPEC #: [id number] RECD: 04/27/22 17:19 STATUS: GERARD MAYS #: [id number] JASON: 04/27/22 12:[address]: Molly Hinson V DEPT: Surgical Specimen RECD BY: Kalyani Johnson Tissues: 1 - SKIN BIOPSY(SHAVE/PUNCH) Procedures: SKIN LEVEL 4 Comments: [id number]
== END 2022-04-27 12:49 | disposition home or self-care (01) ==
LOC: NCHCN 12:48
PROVIDERS: PCP Family Medicine; Visit Provider Family Medicine
DX: R23.8 Other skin changes (principal)
CPT/HCPCS: 88305

== ENCOUNTER 2022-09-25 21:30 | Inpatient (IN) | payer OTHER, SELFPAY ==
[2022-09-25] VITALS (11 sets, daily range): BP systolic 131–137; BP diastolic 68–74; PULSE 79–91; RESP 15–35; TEMP 36.7; O2SAT 95–99
--- NOTE | 2022-09-25 21:30 | RT.EKG_ITS ---
APPROVED REPORT Exam: Resting ECG Reason for Exam: overdose Patient Location: E HR:89 bpm ECG Measurements Heart Rate 89 AXIS [place] 208 P 3 QRSd 110 QRS 11 QT 436 T -9 QTc 530 Conclusion Sinus rhythm...normal P axis Borderline prolonged [place] interval.. Low voltage, precordial leads. Borderline T abnormalities Prolonged QT interval.
--- NOTE | 2022-09-25 21:31 | W.ED.GENAD ---
Discharge Plan Disposition Patient Disposition: Admit to [facility] Condition: Improving Discharge Details Clinical Impression: Overdose Primary Care Provider: Molly Hinson V ED Provider: Keyshawn Espana Home Meds and New Rx's Prescriptions: No Action midodrine 5 mg tablet 5 mg PO TID acetaminophen [Tylenol] 325 mg capsule 325 mg PO Q6H PRN naproxen sodium [Aleve] 220 mg capsule 220 mg PO BID PRN atorvastatin [Lipitor] 10 mg tablet 10 mg PO DAILY sumatriptan succinate [Imitrex] 100 mg tablet 100 mg PO BID PRN (Reason: prn) lorazepam [Ativan] 0.5 mg tablet 0.5 mg PO BID PRN nitroglycerin [Nitrostat] 0.4 mg tablet, sublingual 0.4 mg SL Q5-15M PRN ezetimibe [Zetia] 10 mg tablet 10 mg PO DAILY quetiapine [Seroquel] 50 mg tablet 50 mg PO BID cyclobenzaprine 10 mg tablet 10 mg PO HS polyethylene glycol 3350 [Miralax] 17 gram/dose powder 17 gm PO DAILY hydrocodone-acetaminophen 5-325 mg tablet 1 tab PO TID bisacodyl [Dulcolax (bisacodyl)] 5 mg tablet,delayed release (DR/EC) 5 mg PO ONCE Qty: 4 0RF Rx Instructions: take per colonoscopy instructions bupropion HCl [Wellbutrin SR] 150 mg tablet sustained-release 12 hr 150 mg PO BID hydrocodone-acetaminophen 5-325 mg tablet 1 tab PO BID PRN lorazepam [Ativan] 0.5 mg tablet 0.5 mg PO DAILY PRN sertraline [Zoloft] 100 MG tablet 300 mg PO HS quetiapine [Seroquel] 200 MG tablet 600 mg PO HS gabapentin 300 MG capsule 900 mg PO HS topiramate [Topamax] 200 MG tablet 200 mg PO HS albuterol sulfate [ProAir HFA] 200 PUFF HFA aerosol inhaler 2 puff Inhalation Q4H PRN medroxyprogesterone 150 MG/ML suspension 1 ea IM .Q3M pantoprazole [Protonix] 40 mg tablet,delayed release (DR/EC) 40 mg PO DAILY Qty: 30 12RF sucralfate [Carafate] 1 gram tablet 1 g PO QACHS Qty: 120 12RF famotidine 20 mg tablet 20 mg PO BID Qty: 0 0RF Medical Decision Making 52-year-old female who had an episode of emotional distress with her partner. She took 6-12 200 mg Seroquel tablets and states she may have taken 5 or 6 tablets of sertraline which is 300 mg. She states to me she no longer feels like harming yourself. She arrives well-appearing but with a flat affect. IV was placed, screening labs obtained. Unclear the exact amounts of patient's intentional overdose. Seroquel has potential for [employer]EL[employer] depression, sedation, hypotension, tachycardia, QT prolongation and seizure. We will observe QTc, magnesium and electrolytes. The potential for sertraline overdose would increase the risk of serotonin syndrome including tachycardia, hyperreflexia and clonus. Approximate time of metabolism would be around 8+ hours. Case was discussed with the poison center. Patient's diagnostic studies: Acetaminophen and salicylate are negative. White blood cell count of 13, medic at 37 and platelets 273. Unremarkable chemistries, magnesium 2.1, LFTs within normal limits and troponin is negative. drug screen is positive for TCA, likely a false positive secondary to Seroquel/quetiapine. Patient will require further medical observation until medically clear approximately after 8 hours. Case discussed with hospitalist and patient to be admitted. HPI General Mode of arrival: EMS. Date/Time Provider Initiated Documentation: 09/25/22 21:33. Limitations to Documentation: no limitations. Information obtained by: patient and EMS. History of Present Illness 52 year old F presents to the emergency department with the chief complaint of Emotional distress and overdose gesture, described as moderate, Patient started experiencing this minute(s) and it has been other (Improving). No relieving factors improve symptom(s), No exacerbating factors reported . Patient notes no other symptoms. and other (Has had depression, no longer feels like harming herself, no thoughts of harming others.). Patient did receive the following treatments prior to arrival, none Related Data Home Medications Medication Instructions Recorded Confirmed albuterol sulfate 90 mcg/actuation 2 puff inhalation Q4H PRN 12/19/15 06/09/20 aerosol inhaler (ProAir HFA) gabapentin 300 mg capsule 900 mg PO HS 12/19/15 06/09/20 medroxyprogesterone 150 mg/mL 1 ea IM .Q3M 12/19/15 06/09/20 intramuscular suspension quetiapine 200 mg tablet (Seroquel) 600 mg PO HS 12/19/15 06/09/20 sertraline 100 mg tablet (Zoloft) 300 mg PO HS 12/19/15 06/09/20 topiramate 200 mg tablet (Topamax) 200 mg PO HS 12/19/15 06/09/20 atorvastatin 10 mg tablet (Lipitor) 10 mg PO DAILY 09/17/18 06/09/20 cyclobenzaprine 10 mg tablet 10 mg PO HS 09/17/18 06/09/20 ezetimibe 10 mg tablet (Zetia) 10 mg PO DAILY 09/17/18 06/09/20 hydrocodone 5 mg-acetaminophen 325 1 tab PO TID 09/17/18 06/09/20 mg tablet lorazepam 0.5 mg tablet (Ativan) 0.5 mg PO BID PRN 09/17/18 06/09/20 nitroglycerin 0.4 mg sublingual 0.4 mg sublingual Q5-15M PRN 09/17/18 06/09/20 tablet (Nitrostat) polyethylene glycol 3350 17 17 gm PO DAILY 09/17/18 06/09/20 gram/dose oral powder (Miralax) quetiapine 50 mg tablet (Seroquel) 50 mg PO BID 09/17/18 06/09/20 sumatriptan succinate 100 mg 100 mg PO BID PRN prn 09/17/18 06/09/20 tablet (Imitrex) acetaminophen 325 mg capsule 325 mg PO Q6H PRN 11/05/18 06/09/20 (Tylenol) midodrine 5 mg tablet 5 mg PO TID 11/05/18 06/09/20 naproxen sodium 220 mg capsule 220 mg PO BID PRN 11/05/18 06/09/20 (Aleve) bupropion HCl 150 mg tablet,12 hr 150 mg PO BID 05/20/20 06/09/20 sustained-release (Wellbutrin SR) hydrocodone 5 mg-acetaminophen 325 1 tab PO BID PRN 05/20/20 06/09/20 mg tablet lorazepam 0.5 mg tablet (Ativan) 0.5 mg PO DAILY PRN 05/20/20 06/09/20 bisacodyl 5 mg tablet,delayed 5 mg PO ONCE colonscopy bowel prep 06/03/20 06/09/20 release (Dulcolax (bisacodyl)) #4 tabs famotidine 20 mg tablet 20 mg PO BID #0 tabs 06/09/20 06/09/20 pantoprazole 40 mg tablet,delayed 40 mg PO DAILY #30 tabs 06/09/20 release (Protonix) sucralfate 1 gram tablet (Carafate) 1 g PO QACHS #120 tabs 06/09/20 Previous Rx's Medication Instructions Recorded bisacodyl 5 mg tablet,delayed 5 mg PO ONCE colonscopy bowel prep 06/03/20 release (Dulcolax (bisacodyl)) #4 tabs famotidine 20 mg tablet 20 mg PO BID #0 tabs 06/09/20 pantoprazole 40 mg tablet,delayed 40 mg PO DAILY #30 tabs 06/09/20 release (Protonix) sucralfate 1 gram tablet (Carafate) 1 g PO QACHS #120 tabs 06/09/20 Allergies Allergy/AdvReac Type Severity Reaction Status Date / Time ezetimibe [From Vytorin] Allergy Severe Verified 06/09/20 11:39 simvastatin [From Vytorin] Allergy Severe Verified 06/09/20 11:39 Penicillins Allergy Intermediate Hives Unverified 06/09/20 11:39 adhesive tape Allergy Mild Skin Rash Unverified 06/09/20 11:39 dexlansoprazole AdvReac Severe Verified 06/09/20 11:39 [From Dexilant] duloxetine HCl AdvReac Severe Psychosis Unverified 06/09/20 11:39 [From Cymbalta] varenicline tartrate AdvReac Severe Psychosis Unverified 06/09/20 11:39 [From Chantix] Review of Systems Narrative: 7 systems reviewed and otherwise negative PFSH All Active Problems (Updated 09/25/22 @ 22:59 by Keyshawn Espana MD) Overdose (Acute) Tubular adenoma of colon (Acute) Adenomatous colon polyp (Acute) Hiatal hernia with GERD (Acute) Abnormal brain MRI (Acute) Syncope (Chronic) Headache, chronic migraine without aura (Chronic) Smoker (Acute) History of pseudoseizure (Acute) pT. STATES IT HAS BEEN YEARS SINCE LAST SEIZURE Smoker (Acute) Migraine (Chronic) Bipolar 1 disorder (Acute) Cardiomyopathy (Acute) GERD (gastroesophageal reflux disease) (Chronic) Arthritis (Acute) Hyperlipidemia (Acute) Obesity (Chronic) IBS (irritable bowel syndrome) (Chronic) Asthma (Chronic) Chronic back pain (Acute) Vitamin B 12 deficiency (Acute) Syncope (Chronic) Pt. states it has been a month since she has passed out. Palpitations (Acute) Medical History Abdominal discomfort Chest pain Pt. states is was related to gas pain Constipation Duodenitis Easy bruising Falls Pt. states r/t syncope Fibromyalgia Foot pain Gastropathy Hip pain Hip pain, bilateral History of fall Hypotension Itchy skin Knee pain, left Lumbar herniated disc Paresthesia Reaction, situational Recurrent boils Rib pain Shoulder pain, right Skin lesion Visual changes Surgical History Arthroscopy, Shoulder left Cholecystectomy Hx of colonoscopy Replacement of total knee joint bilateral S/P foot surgery, left Family History Mother Colon cancer COPD (chronic obstructive pulmonary disease) Stroke Father Heart disease Esophageal cancer Social History Smoking/Tobacco Use Status: Current every day Tobacco Type: cigarettes Smoking packs per day: 1 Smoking cigarettes per day: 20.0 Smoking risk assessment performed?: Yes Alcohol Intake: never Drug use: Never Substance use type: does not use Household members: spouse Number of Children: 4 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 Current gender identity: female Do you feel safe at home: Yes Do you feel safe in your relationship?: Yes Exam Narrative Exam Narrative: GEN: awake, alert, oriented 3. Pleasant, well groomed, interactive. HEAD: Normocephalic, atraumatic ENT: Mucous membranes moist, oropharynx unremarkable, External ear exam unremarkable EYES: PERRL, EOMI NECK: Full ROM, no YARIEL, no menigismus CHEST/RESP: Nontender, clear to auscultation bilateral, no wheeze/rhonchi/rales CARDIOVASCULAR: RRR, no murmur, rub marleny. 2+ Rad pulse bilateral ABDOMEN: Soft, nontender, no mass. +Bowel sounds EXT: Full ROM, no edema, no rash Neuro: Grossly normal neurologic exam, conversant, interactive. Psych: Speech fluent, thoughts congruent, affect depressed and flat
[2022-09-25 22:04] LABS: Source Nasal/Nares
[2022-09-25 22:13] LABS: Abs Immature Grans 0.06 10^3/uL (0.0-0.06); Absolute Basophil Count 0.05 10^3/uL (0.0-0.2); Absolute Eosinophil Count 0.17 10^3/uL (0.0-0.7); Absolute Lymphocyte Count 5.13 10^3/uL (1.2-3.4); Absolute Monocyte Count 0.74 10^3/uL (0.1-0.8); Basophils % 0.4; Eosinophils % 1.3; HCT 37.8 % (36.0-46.0); HGB 12.5 g/dL (11.2-15.7); Immature Grans % 0.4; Lymphocytes % 38.2; MCH 30.1 pg (27.0-33.0); MCHC 33.1 % (32.0-36.0); MCV 91 fL (80-95); MPV 10.1 fL (8.0-11.0); Monocytes % 5.5; Neutrophils % 54.2; Platelet Count 273 10^3/uL (130-400); RBC 4.15 10^6/uL (3.93-5.22); RDW-SD 49.9 fL; WBC 13.44 10^3/uL (4.4-10.8)
[2022-09-25 22:14] LABS: Absolute Neutrophil Count 7.28 10^3/uL (1.2-6.7); Diff Comment Agrees w/ Instrument; RBC Morphology Normal
[2022-09-25 22:16] LABS: Bilirubin Negative (Negative); Blood Negative (Negative); Clarity Sl Cloudy (Clear); Glucose Negative (Negative); Ketones Negative (Negative); Leukocyte Esterase Trace (Negative); Nitrite Negative (Negative); Urobilinogen 0.2 EU/dL (Up TO 0.2)
[2022-09-25 22:26] LABS: Bacteria Few HPF (Negative); C & S Indicated? No/Sq. Contamination; Casts Negative LPF (Negative); Crystals Few Amorphous HPF (Negative); Epithelial Cells Moderate HPF (Negative); Mucus Negative (Negative)
[2022-09-25 22:27] LABS: *AMPHETAMINES SCREEN URINE Negative (Negative); *BARBITURATES SCREEN URINE Negative (Negative); *BENZODIAZEPINES SCREEN URINE Negative (Negative); Cannabinoids THC Negative (Negative); Cocaine Screen,Urine Negative (Negative); METHADONE URINE SCREEN Negative (Negative); OPIATES URINE SCREEN Negative (Negative)
[2022-09-25 22:29] LABS: Tricyclic Antidepressants Positive (Negative)
[2022-09-25 22:30] LABS: ALT 22 U/L (14-59); AST 19 U/L (15-37); Albumin 3.6 g/dL (3.4-5.0); Alkaline Phosphatase 73 U/L (46-116); Anion Gap 7.8 mmol/L (3-11); BUN 15 mg/dL (7-18); Bilirubin, Total 0.1 mg/dL (0.2-1.0); CO2 26.2 mmol/L (21.0-32.0); CREATININE 0.9 mg/dL (0.55-1.02); Chloride 108 mmol/L (98-107); Estimated GFR 76.44 (mL/min/1.73m2); Glucose 112 mg/dL (74-106); Magnesium 2.1 mg/dL (1.8-2.4); Potassium 3.6 mmol/L (3.5-5.1); Sodium 142 mmol/L (136-145); Total Protein 6.7 g/dL (6.4-8.2); Troponin I < 50 ng/L (<or=60)
[2022-09-25 22:34] LABS: ETHANOL BLOOD < 3.0 mg/dL (<10)
[2022-09-25 22:36] LABS: Salicylate 3.9 mg/dL (<2.8)
[2022-09-25 22:38] LABS: Acetaminophen < 2 ug/mL (10-30)
[2022-09-25 22:39] LABS: COVID-19 PCR Negative (Negative)
--- NOTE | 2022-09-25 23:03 | HPE_ITS ---
Date of service: 09/25/22 Time of Service: 23:04 Assessment and Plan Assessment and plan (1) Overdose: Start date: 09/25/22 Status: Acute Assessment and plan: This a 52-year-old lady who has a history of overdosing on her home meds and has extensive regimen at home but only took Seroquel and Zoloft. Per poison control she should metabolize her overdose within 8 hours and should be observed closely for QT prolongation. She will be admitted to ICU level of care with the sitter and if her electrolytes remain normal and cardiac monitoring reveals continued normal QT, she will be medically cleared for mental health evaluation for treatment plan. She is a full code and her medication list should be reviewed with her tendency to overdose. This appears to be during conflict with some impulsivity and acting out. (2) Suicidal ideation: Status: Acute Assessment and plan: Patient has a history of suicidal gestures in the past as well as cutting with psychiatry to review history and appropriate medical therapy. She should be monitored more closely for potential overdose in the future with appropriate number of potentially dangerous medications to be limited in her possession. (3) Bipolar 1 disorder: Status: Chronic Assessment and plan: Hold most of patient's chronic medical therapy until medically cleared and psychiatry can review for ongoing treatment. History of Present Illness History of Present Illness Chief Complaint: Suicide ideation with intentional overdose of home medications Narrative: This is a 52-year-old female patient who had an argument with her partner and became very emotional taking 6-12 200 mg Seroquel tablets and 5 to 6 tablets of her sertraline 200 mg tablets. She does have a dosage of Seroquel 60 mg at night and 50 mg twice daily on her outpatient medication list as well as Zoloft 300 mg daily. She has access to hydrocodone, Ativan and Wellbutrin at home but did not volunteer that she overdosed on any of these medications and her urine drug screen did not show opiates or benzodiazepines. In the ED she was sedated but able to be awakened and talking with slurred speech. Poison control was called and stated that she needed to be observed for QT prolongation with magnesium potassium to be monitored closely and sedation as well as serotonin syndrome is a possibility with all of this to resolve within the next 8 hours. Mental health has been consulted and she will have a sitter and should be medically cleared in the morning to talk to mental health. She does have a history of cutting when she was a young adult but not a teenager and has attempted overdose on medications in the past. She reports that she is not actively having suicidal thoughts. Patient is a full code. Review of Systems Narrative: 13 point review of systems otherwise unrevealing or stable. PFSH All Active Problems (Updated 09/26/22 @ 08:09 by Morgan Eckert) Suicidal ideation (Acute) Overdose (Acute) Tubular adenoma of colon (Acute) Adenomatous colon polyp (Acute) Hiatal hernia with GERD (Acute) Abnormal brain MRI (Acute) Syncope (Chronic) Headache, chronic migraine without aura (Chronic) Smoker (Acute) History of pseudoseizure (Acute) pT. STATES IT HAS BEEN YEARS SINCE LAST SEIZURE Smoker (Acute) Migraine (Chronic) Bipolar 1 disorder (Chronic) Cardiomyopathy (Acute) GERD (gastroesophageal reflux disease) (Chronic) Arthritis (Acute) Hyperlipidemia (Acute) Obesity (Chronic) IBS (irritable bowel syndrome) (Chronic) Asthma (Chronic) Chronic back pain (Acute) Vitamin B 12 deficiency (Acute) Syncope (Chronic) Pt. states it has been a month since she has passed out. Palpitations (Acute) Medical History Abdominal discomfort Chest pain Pt. states is was related to gas pain Constipation Duodenitis Easy bruising Falls Pt. states r/t syncope Fibromyalgia Foot pain Gastropathy Hip pain Hip pain, bilateral History of fall Hypotension Itchy skin Knee pain, left Lumbar herniated disc Paresthesia Reaction, situational Recurrent boils Rib pain Shoulder pain, right Skin lesion Visual changes Surgical History Arthroscopy, Shoulder left Cholecystectomy Hx of colonoscopy Replacement of total knee joint bilateral S/P foot surgery, left Family History Mother Colon cancer COPD (chronic obstructive pulmonary disease) Stroke Father Heart disease Esophageal cancer Social History Smoking/Tobacco Use Status: Current every day Tobacco Type: cigarettes Smoking packs per day: 1 Smoking cigarettes per day: 20.0 Smoking risk assessment performed?: Yes Alcohol Intake: never Drug use: Never Substance use type: does not use Details: OD on seroquel and zoloft 09/26/22 Household members: spouse Number of Children: 4 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 Current gender identity: female Do you feel safe at home: Yes Do you feel safe in your relationship?: Yes Meds Allergies and Home Medications Allergies Allergy/AdvReac Type Severity Reaction Status Date / Time ezetimibe [From Vytorin] Allergy Severe Verified 06/09/20 11:39 simvastatin [From Vytorin] Allergy Severe Verified 06/09/20 11:39 Penicillins Allergy Intermediate Hives Unverified 06/09/20 11:39 adhesive tape Allergy Mild Skin Rash Unverified 06/09/20 11:39 dexlansoprazole AdvReac Severe Verified 06/09/20 11:39 [From Dexilant] duloxetine HCl AdvReac Severe Psychosis Unverified 06/09/20 11:39 [From Cymbalta] varenicline tartrate AdvReac Severe Psychosis Unverified 06/09/20 11:39 [From Chantix] Home Medications Medication Instructions Recorded Confirmed Type albuterol sulfate 90 mcg/actuation 2 puff inhalation Q4H PRN 12/19/15 06/09/20 History aerosol inhaler (ProAir HFA) gabapentin 300 mg capsule 900 mg PO HS 12/19/15 06/09/20 History medroxyprogesterone 150 mg/mL 1 ea IM .Q3M 12/19/15 06/09/20 History intramuscular suspension quetiapine 200 mg tablet (Seroquel) 600 mg PO HS 12/19/15 06/09/20 History sertraline 100 mg tablet (Zoloft) 300 mg PO HS 12/19/15 06/09/20 History topiramate 200 mg tablet (Topamax) 200 mg PO HS 12/19/15 06/09/20 History atorvastatin 10 mg tablet (Lipitor) 10 mg PO DAILY 09/17/18 06/09/20 History cyclobenzaprine 10 mg tablet 10 mg PO HS 09/17/18 06/09/20 History ezetimibe 10 mg tablet (Zetia) 10 mg PO DAILY 09/17/18 06/09/20 History hydrocodone 5 mg-acetaminophen 325 1 tab PO TID 09/17/18 06/09/20 History mg tablet lorazepam 0.5 mg tablet (Ativan) 0.5 mg PO BID PRN 09/17/18 06/09/20 History nitroglycerin 0.4 mg sublingual 0.4 mg sublingual Q5-15M PRN 09/17/18 06/09/20 History tablet (Nitrostat) polyethylene glycol 3350 17 17 gm PO DAILY 09/17/18 06/09/20 History gram/dose oral powder (Miralax) quetiapine 50 mg tablet (Seroquel) 50 mg PO BID 09/17/18 06/09/20 History sumatriptan succinate 100 mg 100 mg PO BID PRN prn 09/17/18 06/09/20 History tablet (Imitrex) acetaminophen 325 mg capsule 325 mg PO Q6H PRN 11/05/18 06/09/20 History (Tylenol) midodrine 5 mg tablet 5 mg PO TID 11/05/18 06/09/20 History naproxen sodium 220 mg capsule 220 mg PO BID PRN 11/05/18 06/09/20 History (Aleve) bupropion HCl 150 mg tablet,12 hr 150 mg PO BID 05/20/20 06/09/20 History sustained-release (Wellbutrin SR) hydrocodone 5 mg-acetaminophen 325 1 tab PO BID PRN 05/20/20 06/09/20 History mg tablet lorazepam 0.5 mg tablet (Ativan) 0.5 mg PO DAILY PRN 05/20/20 06/09/20 History bisacodyl 5 mg tablet,delayed 5 mg PO ONCE colonscopy bowel prep 06/03/20 06/09/20 Rx release (Dulcolax (bisacodyl)) #4 tabs famotidine 20 mg tablet 20 mg PO BID #0 tabs 06/09/20 06/09/20 Rx pantoprazole 40 mg tablet,delayed 40 mg PO DAILY #30 tabs 06/09/20 Rx release (Protonix) sucralfate 1 gram tablet (Carafate) 1 g PO QACHS #120 tabs 06/09/20 Rx Exam Narrative Exam Narrative: General: Patient appears older than stated age, moderately obese, sedated but arousable but speaking with a slurred speech. She is alert and oriented at least to person and place. She is in no acute distress. HEENT: Normocephalic, eyes with pupils equal and reactive to light symmetrically, extraocular movement intact and sclera anicteric. Oropharynx with dry mucosa and fair dentition. Neck: Supple without JVD. Back: Stooped posture without CVA tenderness. Lungs: Clear to auscultation and percussion. Breast: Exam deferred. Heart: Regular rate and rhythm with no murmurs gallops appreciated. Abdomen: Obese contour, soft and nontender to palpation with no palpable hepatosplenomegaly. Genitalia/rectal: Exam deferred. Extremities: Without clubbing, cyanosis or grossly pitting edema. Peripheral pulses intact. Skin: Normal color, warm and dry. Neuro: Cranial nerves II through XII grossly intact, no focalizing motor deficits with patient sedated she is moving all extremities well. She is generally weak with her sedation. Reflexes physiologic and symmetrical. No tremor. Psych: Flattened affect with sedation and mood uninterpretable with sedation. History of depression. Slurred speech. No abnormal thought processes tucker fested. Remote memory grossly intact with recent memory less testable with patient sedated. Results Labs 09/25/22 21:43 09/25/22 21:43 Labs: Laboratory Results - last 24 hr 09/25/22 09/25/22 09/25/22 21:25 21:25 21:43 WBC RBC Hgb Hct MCV MCH MCHC RDW Plt Count MPV Immature Gran % Neutrophils % Lymphocytes % Monocytes % Eosinophils % Basophils % Nucleated RBC % Absolute Neutrophils Absolute Lymphocytes Absolute Monocytes Absolute Eosinophils Absolute Basophils RBC Morphology Sodium 142 Potassium 3.6 Chloride 108 H Carbon Dioxide 26.2 Anion Gap 7.8 BUN 15 Creatinine 0.9 Est GFR (CKD-EPI 2020) 76.44 Glucose 112 H Calcium 9.0 Magnesium 2.1 Total Bilirubin 0.1 L AST 19 ALT 22 Alkaline Phosphatase 73 Troponin I < 50 Total Protein 6.7 Albumin 3.6 Urine Color Yellow Urine Clarity Sl Cloudy Urine pH 7.0 Ur Specific [place] 1.020 Urine Protein Negative Urine Ketones Negative Urine Blood Negative Urine Nitrite Negative Urine Bilirubin Negative Urine Urobilinogen 0.2 Ur Leukocyte Esterase Trace H Urine RBC 3-5 H Urine WBC 3-5 Ur Epithelial Cells Moderate Urine Crystals Few Amorphous Urine Bacteria Few Urine Casts Negative Urine Mucus Negative Ur Culture Indicated? No/Sq. Contamination Urine Glucose Negative Salicylates Urine Opiates Screen Negative Urine Methadone Screen Negative Acetaminophen Ur Barbiturates Screen Negative Ur Tricyclics Screen Positive A Ur Amphetamines Screen Negative U Benzodiazepines Scrn Negative Urine Cocaine Screen Negative Ur THC Screen Negative Ethyl Alcohol < 3.0 COVID-19 Source SARS-CoV-2 (PCR) 09/25/22 09/25/22 09/25/22 21:43 21:43 21:43 WBC 13.44 H RBC 4.15 Hgb 12.5 Hct 37.8 MCV 91 MCH 30.1 MCHC 33.1 RDW 15.0 H Plt Count 273 MPV 10.1 Immature Gran % 0.4 Neutrophils % 54.2 Lymphocytes % 38.2 Monocytes % 5.5 Eosinophils % 1.3 Basophils % 0.4 Nucleated RBC % 0.0 Absolute Neutrophils 7.28 H Absolute Lymphocytes 5.13 H Absolute Monocytes 0.74 Absolute Eosinophils 0.17 Absolute Basophils 0.05 RBC Morphology Normal Sodium Potassium Chloride Carbon Dioxide Anion Gap BUN Creatinine Est GFR (CKD-EPI 2020) Glucose Calcium Magnesium Total Bilirubin AST ALT Alkaline Phosphatase Troponin I Total Protein Albumin Urine Color Urine Clarity Urine pH Ur Specific [place] Urine Protein Urine Ketones Urine Blood Urine Nitrite Urine Bilirubin Urine Urobilinogen Ur Leukocyte Esterase Urine RBC Urine WBC Ur Epithelial Cells Urine Crystals Urine Bacteria Urine Casts Urine Mucus Ur Culture Indicated? Urine Glucose Salicylates 3.9 Urine Opiates Screen Urine Methadone Screen Acetaminophen < 2 Ur Barbiturates Screen Ur Tricyclics Screen Ur Amphetamines Screen U Benzodiazepines Scrn Urine Cocaine Screen Ur THC Screen Ethyl Alcohol COVID-19 Source Nasal/Nares SARS-CoV-2 (PCR) Negative Last Vital Signs Temp 36.7 C 09/25/22 21:42 Pulse 91 H 09/25/22 21:42 Resp 25 H 09/25/22 21:42 BP 137/74 09/25/22 21:42 Pulse Ox 99 09/25/22 21:42 Time Spent Time spent with Patient: 55-74 minutes Time was spent: preparing to see the patient(eg.review tests), obtaining and/or reviewing separately otained hiistory, ordering medications,tests, procedures, referring, communicating with other health healthcare specialist, indepentently interpreting results and care coordination
--- NOTE | 2022-09-25 23:10 | NUR.NOTE ---
Pt w/ prolonged QT interval on her arrival to ED. Pt is having PVCs and short runs of v-tac. MD Malorie made aware. Rhythm strip printed and included with chart.
[2022-09-26] VITALS (111 sets, daily range): BP systolic 96–137; BP diastolic 46–96; PULSE 68–91; RESP 10–28; TEMP 36–36.8; O2SAT 89–99
[2022-09-26] MEDS: Normal Saline 1,000 ML 125 ML IV (02:42)
--- NOTE | 2022-09-26 03:32 | NUR.NOTE ---
Nursing Note: Lyndsay from Poison Control updated on patient condition.
[2022-09-26 04:43] LABS: HCT 34.8 % (36.0-46.0); HGB 11.4 g/dL (11.2-15.7); MCH 30.3 pg (27.0-33.0); MCHC 32.8 % (32.0-36.0); MCV 93 fL (80-95); Platelet Count 247 10^3/uL (130-400); RBC 3.76 10^6/uL (3.93-5.22); RDW 15.1 % (11.7-14.6); RDW-SD 52.1 fL; WBC 12.64 10^3/uL (4.4-10.8)
[2022-09-26 04:49] LABS: ALT 19 U/L (14-59); AST 16 U/L (15-37); Albumin 3.1 g/dL (3.4-5.0); Alkaline Phosphatase 65 U/L (46-116); Anion Gap 9.2 mmol/L (3-11); BUN 14 mg/dL (7-18); Bilirubin, Total 0.1 mg/dL (0.2-1.0); CO2 22.8 mmol/L (21.0-32.0); CREATININE 0.9 mg/dL (0.55-1.02); Calcium 8.5 mg/dL (8.5-10.1); Chloride 111 mmol/L (98-107); Estimated GFR 76.44 (mL/min/1.73m2); Glucose 97 mg/dL (74-106); Potassium 3.8 mmol/L (3.5-5.1); Sodium 143 mmol/L (136-145); Total Protein 5.9 g/dL (6.4-8.2)
--- NOTE | 2022-09-26 08:41 | INITIAL_ITS ---
- If Service Date Differs Date of service: 09/26/22 Time of Service: 08:41 Care Management Initial Assess REASON FOR HOSPITALIZATION:: Overdose, Suicidal ideation PAST MEDICAL HISTORY/PAST SURGICAL HISTORY:: All Active Problems (Updated 09/26/22 @ 08:09 by Morgan Eckert). Suicidal ideation (Acute). Overdose (Acute). Tubular adenoma of colon (Acute). Adenomatous colon polyp (Acute). Hiatal hernia with GERD (Acute). Abnormal brain MRI (Acute). Syncope (Chronic). Headache, chronic migraine without aura (Chronic). Smoker (Acute). History of pseudoseizure (Acute). pT. STATES IT HAS BEEN YEARS SINCE LAST SEIZURE. Smoker (Acute). Migraine (Chronic). Bipolar 1 disorder (Chronic). Cardiomyopathy (Acute). GERD (gastroesophageal reflux disease) (Chronic). Arthritis (Acute). Hyperlipidemia (Acute). Obesity (Chronic). IBS (irritable bowel syndrome) (Chronic). Asthma (Chronic). Chronic back pain (Acute). Vitamin B 12 deficiency (Acute). Syncope (Chronic). Pt. states it has been a month since she has passed out. Palpitations (Acute). Medical History . Abdominal discomfort. Chest pain. Pt. states is was related to gas pain. Constipation. Duodenitis. Easy bruising. Falls. Pt. states r/t syncope. Fibromyalgia. Foot pain. Gastropathy. Hip pain. Hip pain, bilateral. History of fall. Hypotension. Itchy skin. Knee pain, left. Lumbar herniated disc. Paresthesia. Reaction, situational. Recurrent boils. Rib pain. Shoulder pain, right. Skin lesion. Visual changes. Surgical History . Arthroscopy, Shoulder. left. Cholecystectomy. Hx of colonoscopy. Replacement of total knee joint. bilateral. S/P foot surgery, left PREVIOUS FUNCTIONAL STATUS/SOCIAL/FAMILY SUPPORTS:: Manisha lives in [facility] with her of 33 years and their 25 y/o son. Genny have 3 other sons who live locally. 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 Manisha drives and is independent in the community and with her ADL's at baseline. CURRENT FUNCTIONAL STATUS:: Manisha is lying in bed when CM met with her. She is tearful, forthcoming with information and mentions that the last time she did this was 10 years ago then ended up in [place] [facility] Since then shes been closely followed by her PCP and has been stable. Manisha shares that sometimes she lets her brain take over because she is bipolar and her symptoms are worse during the winter months. ADVANCE DIRECTIVES:: None on file. Has patient been provided with info about the portal/API?: Yes Did the patient sign up for the portal?: No CODE STATUS:: Full Code INSURANCE COVERAGE / FINANCIAL ISSUES:: [employer] [facility]. Medicaid. Medicare CURRENT HOME/COMMUNITY SERVICES/EQUIPMENT:: Uses a walker-PRN. SSDI PRIMARY CARE PHYSICIAN:: Molly Leo POTENTIAL DISCHARGE NEEDS:: [facility] support with discharge plan, once medically cleared. Follow up appointment with PCP and [facility] PATIENT/FAMILY EDUCATION NEEDS:: Review discharge instructions and plan to follow up with community providers. Discuss ask me three. TRANSPORTATION:: Dependent on disposition PLAN:: Manisha continues to be closely monitored in the ICU. Once she is medically cleared per provider she will be screened by [facility]. CM will continue to follow.
[2022-09-26] MEDS: Sucralfate 1 GM TAB PO ×3 (08:53→16:05)
[2022-09-26] MEDS: Pantoprazole 40 MG TABCR PO (08:54)
[2022-09-26] MEDS: Famotidine 20 MG TAB PO ×2 (08:54→20:55)
[2022-09-26] MEDS: Ezetimibe 10 MG TAB PO (08:54)
[2022-09-26] MEDS: Normal Saline Flush 10 ML SYR IVP ×3 (08:57→23:36)
[2022-09-26] MEDS: Enoxaparin 40 MG/0.4 ML SYR SC (08:57)
--- NOTE | 2022-09-26 09:04 | CMSP_ITS ---
- If Service Date Differs Date of service: 09/26/22 Time of Service: 09:04 Care Management Safety Plan Status: Interim - Reason for Wait Reason for Wait: Medical Clearance Manisha is a 52-year-old female who is admitted to the ICU for SI s/p intentional overdose of Seroquel and Zoloft. Manisha requires close monitoring and observation at this time, once medically cleared she will be evaluated by mental health for treatment plan. Per report, Manisha has an extensive medication regimen and also has a history of overdosing on her home meds. 1300 Manisha identifies her Elton as her primary support person. Contact by phone is permitted at RN discretion. This plan is reviewed with , primary RN Branden and CM RN Cyn. Once medically cleared and assessed by screener, if screener deems patient meets criteria for psychiatric stabilization CM will facilitate interdepartmental huddle with [facility] screener for safety planning considerations and meet with patient to review [facility] policy and safety plan, establish individual wishes for treatment and maintain patient rights. In the interim; please note safety plan below to guide patient care while awaiting further assessment. SAFETY PLAN: 1. Will remain on suicide precautions and in paper clothes. 2. Will remain in room under direct supervision of one-on-one staff at all times provided by GRACE, AERONAUTICAL PROJECT ENGINEER milk drying machine operator. 3. May have paper cups, plates, finger foods as well as a cardboard spoon with which to eat meals. 4. Follow [facility] Management of the Admitted Behavioral Health Patient policy. 5. Personal care: Comfort bath system only at this time. 6. Bathroom privileges: with escort in ED. Available in room without limitation on Med/Surg. 6. No personal belongings at this time; per RN discretion. 7. No visitors at this time. 8. Phone calls from are permitted at RN discretion. 9. Activities: Music tablet per RN discretion. Med/Surg: Television and remote available at RN discretion. 10. Due to VOLUNTARY status, if patient wishes to leave [facility], staff will contact [facility] Crisis Screener ([phone]) and On-Call Taper Machine ([phone]) as soon as possible. In the event of elopement, notify [facility] Police ([phone]). If deemed appropriate for inpatient psychiatric care, safety plan will be established with patient, and care team, to adhere to patient goals, identify restrictions based on behavioral status, address nutrition, and determine allowed personal belongings, tools for hygiene and personal care. As well plan will determine level of activity including ambulation, level of supervision, visitors, and determine privileges based on level of acuity, behaviors and level of engagement by patient.
--- NOTE | 2022-09-26 10:00 | RT.EKG_ITS ---
APPROVED REPORT Exam: Resting ECG Reason for Exam: QTC >0.46 to 0.65 Patient Location: I HR:72 bpm ECG Measurements Heart Rate 72 AXIS MA 198 P 32 QRSd 105 QRS 25 QT 499 T 42 QTc 547 Conclusion Sinus rhythm...normal P axis, V-rate 50- 99 Low voltage, precordial leads...precordial leads <1.0mV Nonspecific T abnormalities, anterior leads...T <-0.10mV, V2-V4 Prolonged QT interval...QTc >510mS
--- NOTE | 2022-09-26 12:38 | PGE_ITS ---
Date of Service Date of service: 09/26/22 Time of Service: 12:38 Assessment and Plan Assessment and plan (1) Overdose: Start date: 09/25/22 Status: Acute Assessment and plan: To pharmacy overdose include Zoloft Seroquel. Poison control was contacted on admission. As her QTc is still prolonged she requires continued monitoring in t ICU. We will repeat her EKG this evening. Mental health consult will be obtained once she is medically cleared. Professional time spent interviewing and examining patient, discussion of goals of care with hospital team (care management, nursing and consulting professionals) was 30 minutes. (2) Suicidal ideation: Status: Acute Assessment and plan: Patient has a history of suicidal gestures in the past as well as cutting with psychiatry to review history and appropriate medical therapy. She should be monitored more closely for potential overdose in the future with appropriate number of potentially dangerous medications to be limited in her possession. (3) Bipolar 1 disorder: Status: Chronic Assessment and plan: Hold most of patient's chronic medical therapy until medically cleared and psychiatry can review for ongoing treatment. Subjective Subjective Interval history since last seen: Patient now regrets having taken the overdose of Seroquel and Zoloft. She feels that she had to do things over again she would have a rational discussion with her rather than acting out. She has a remote history of suicidal attempt. She denies any chest pain or pressure denies any dyspnea. Heart rate and rhythm are regular sinus rhythm blood pressure stable. Repeat QTc this morning however was still prolonged at 547 ms. I expect that the Seroquel will remain in her system for 30 to 35 hours based on its half-life. As she took the overdose around 5 PM yesterday I do not expected to be out of her system until late tonight. We will continue to monitor heart rate and rhythm and monitor the QTc interval. Exam Narrative Exam Narrative: Obese female who is alert and oriented person place time circumstance in no distress. Lungs are clear to auscultation Heart is regular rate and rhythm Abdomen is obese soft nondistended normal bowel sounds nontender Extremities without peripheral cyanosis or edema Objective Last Vital Signs Temp 36.4 C L 09/26/22 10:31 Pulse 70 09/26/22 12:00 Resp 17 09/26/22 12:10 BP 117/62 09/26/22 12:00 Pulse Ox 90 L 09/26/22 12:10 Laboratory Results - last 24 hr 09/25/22 09/25/22 09/25/22 21:25 21:25 21:43 WBC RBC Hgb Hct MCV MCH MCHC RDW Plt Count MPV Immature Gran % Neutrophils % Lymphocytes % Monocytes % Eosinophils % Basophils % Nucleated RBC % Absolute Neutrophils Absolute Lymphocytes Absolute Monocytes Absolute Eosinophils Absolute Basophils RBC Morphology Sodium 142 Potassium 3.6 Chloride 108 H Carbon Dioxide 26.2 Anion Gap 7.8 BUN 15 Creatinine 0.9 Est GFR (CKD-EPI 2020) 76.44 Glucose 112 H Calcium 9.0 Magnesium 2.1 Total Bilirubin 0.1 L AST 19 ALT 22 Alkaline Phosphatase 73 Troponin I < 50 Total Protein 6.7 Albumin 3.6 Urine Color Yellow Urine Clarity Sl Cloudy Urine pH 7.0 Ur Specific Valier 1.020 Urine Protein Negative Urine Ketones Negative Urine Blood Negative Urine Nitrite Negative Urine Bilirubin Negative Urine Urobilinogen 0.2 Ur Leukocyte Esterase Trace H Urine RBC 3-5 H Urine WBC 3-5 Ur Epithelial Cells Moderate Urine Crystals Few Amorphous Urine Bacteria Few Urine Casts Negative Urine Mucus Negative Ur Culture Indicated? No/Sq. Contamination Urine Glucose Negative Salicylates Urine Opiates Screen Negative Urine Methadone Screen Negative Acetaminophen Ur Barbiturates Screen Negative Ur Tricyclics Screen Positive A Ur Amphetamines Screen Negative U Benzodiazepines Scrn Negative Urine Cocaine Screen Negative Ur THC Screen Negative Ethyl Alcohol < 3.0 COVID-19 Source SARS-CoV-2 (PCR) 09/25/22 09/25/22 09/25/22 21:43 21:43 21:43 WBC 13.44 H RBC 4.15 Hgb 12.5 Hct 37.8 MCV 91 MCH 30.1 MCHC 33.1 RDW 15.0 H Plt Count 273 MPV 10.1 Immature Gran % 0.4 Neutrophils % 54.2 Lymphocytes % 38.2 Monocytes % 5.5 Eosinophils % 1.3 Basophils % 0.4 Nucleated RBC % 0.0 Absolute Neutrophils 7.28 H Absolute Lymphocytes 5.13 H Absolute Monocytes 0.74 Absolute Eosinophils 0.17 Absolute Basophils 0.05 RBC Morphology Normal Sodium Potassium Chloride Carbon Dioxide Anion Gap BUN Creatinine Est GFR (CKD-EPI 2020) Glucose Calcium Magnesium Total Bilirubin AST ALT Alkaline Phosphatase Troponin I Total Protein Albumin Urine Color Urine Clarity Urine pH Ur Specific Valier Urine Protein Urine Ketones Urine Blood Urine Nitrite Urine Bilirubin Urine Urobilinogen Ur Leukocyte Esterase Urine RBC Urine WBC Ur Epithelial Cells Urine Crystals Urine Bacteria Urine Casts Urine Mucus Ur Culture Indicated? Urine Glucose Salicylates 3.9 Urine Opiates Screen Urine Methadone Screen Acetaminophen < 2 Ur Barbiturates Screen Ur Tricyclics Screen Ur Amphetamines Screen U Benzodiazepines Scrn Urine Cocaine Screen Ur THC Screen Ethyl Alcohol COVID-19 Source Nasal/Nares SARS-CoV-2 (PCR) Negative 09/26/22 09/26/22 09/26/22 04:20 04:20 04:20 WBC 12.64 H RBC 3.76 L Hgb 11.4 Hct 34.8 L MCV 93 MCH 30.3 MCHC 32.8 RDW 15.1 H Plt Count 247 MPV 10.0 Immature Gran % Neutrophils % Lymphocytes % Monocytes % Eosinophils % Basophils % Nucleated RBC % Absolute Neutrophils Absolute Lymphocytes Absolute Monocytes Absolute Eosinophils Absolute Basophils RBC Morphology Sodium 143 Potassium 3.8 Chloride 111 H Carbon Dioxide 22.8 Anion Gap 9.2 BUN 14 Creatinine 0.9 Est GFR (CKD-EPI 2020) 76.44 Glucose 97 Calcium 8.5 Magnesium 2.0 Total Bilirubin 0.1 L AST 16 ALT 19 Alkaline Phosphatase 65 Troponin I Total Protein 5.9 L Albumin 3.1 L Urine Color Urine Clarity Urine pH Ur Specific Valier Urine Protein Urine Ketones Urine Blood Urine Nitrite Urine Bilirubin Urine Urobilinogen Ur Leukocyte Esterase Urine RBC Urine WBC Ur Epithelial Cells Urine Crystals Urine Bacteria Urine Casts Urine Mucus Ur Culture Indicated? Urine Glucose Salicylates Urine Opiates Screen Urine Methadone Screen Acetaminophen Ur Barbiturates Screen Ur Tricyclics Screen Ur Amphetamines Screen U Benzodiazepines Scrn Urine Cocaine Screen Ur THC Screen Ethyl Alcohol COVID-19 Source SARS-CoV-2 (PCR) Time Spent with Patient Time Spent with Patient: 25-34 minutes Time was spent: preparing to see the patient(eg.review tests), obtaining and/or reviewing separately otained hiistory, ordering medications,tests, procedures, indepentently interpreting results, counseling the patient and care coordination
--- NOTE | 2022-09-26 13:18 | NUR.NOTE ---
Nursing Note: This typewriter mechanic spoke with Zara from the poison control center regarding the pt. Zara requested results from last EKG, laboratory and most recent VS. This typewriter mechanic was advised to continue to monitor potassium and magnesiunm in light of the elongated QTc. Zara had no other suggestions at this time
--- NOTE | 2022-09-26 13:29 | PHA.REVIEW2 ---
Pharmacy Admission Review - Admission Clinical Review (Last Reviewed 09/25/22 @ 21:32 by Keyshawn Espana MD) Suicidal ideation (Acute) Overdose (Acute) ezetimibe [From Vytorin] Allergy (Severe, Verified 06/09/20 11:39) simvastatin [From Vytorin] Allergy (Severe, Verified 06/09/20 11:39) Penicillins Allergy (Intermediate, Unverified 06/09/20 11:39) Hives adhesive tape Allergy (Mild, Unverified 06/09/20 11:39) Skin Rash dexlansoprazole [From Dexilant] Adverse Reaction (Severe, Verified 06/09/20 11:39) duloxetine HCl [From Cymbalta] Adverse Reaction (Severe, Unverified 06/09/20 11:39) Psychosis varenicline tartrate [From Chantix] Adverse Reaction (Severe, Unverified 06/09/20 11:39) Psychosis Resuscitation Status Full Code Height 5 ft 6 in Weight 127.4 kg - Comments Comments/Follow Ups: Overdose with seroquel and sertraline, serial QTc monitoring ordered - Renal Dosing Renal Dosing: BUN 14 mg/dL (7-18) 09/26/22 04:20 Creatinine 0.9 mg/dL (0.55-1.02) 09/26/22 04:20 Medications needing adjustments: Reviewed (eCrCl 99 ml) - Anticoagulation Anticoagulation: Hgb 11.4 g/dL (11.2-15.7) 09/26/22 04:20 Hct 34.8 % (36.0-46.0) L 09/26/22 04:20 Plt Count 247 10^3/uL (130-400) 09/26/22 04:20 Creatinine 0.9 mg/dL (0.55-1.02) 09/26/22 04:20 DVT Prophylaxis: Reviewed Medications: Enoxaparin - Opiate Usage Evaluate Pain Scale/Pains Meds: N/A - Relevant Labs Sodium 143 mmol/L (136-145) 09/26/22 04:20 Potassium 3.8 mmol/L (3.5-5.1) 09/26/22 04:20 Chloride 111 mmol/L (98-107) H 09/26/22 04:20 Magnesium 2.0 mg/dL (1.8-2.4) 09/26/22 04:20 Electrolytes, C-Reactive P, ESR: Reviewed (wnl) - DM Control DM Control: Glucose 97 mg/dL (74-106) 09/26/22 04:20 DM Control: N/A - Cardiac Review Cardiac Review: Troponin I < 50 ng/L (<or=60) 09/25/22 21:43 BP, HR, EF%: N/A - Qtc Review QTc: Reviewed (QTc down to 547 this AM) - IV to PO Switch IV Medications: Reviewed - Home Meds Home Med List reviewed: Intervened (confirmed meds via surescripts, psych meds not order d/t overdose) - Current meds Current Medication Order Review: Reviewed
--- NOTE | 2022-09-26 13:56 | CHAPLAIN ---
Manisha is in the ICU following an intentional suicide attempt in which she took pills. According to the Hospitalist's notes she is saying she knows now that the had other options rather than acting out and taking the pills. When I introduce myself to Manisha, she tells me that she's not mandaeism but thanks for for visiting. I let her know that I'm available at any time if she'd like to have a conversation.
[2022-09-26] MEDS: Acetaminophen 325 MG TAB PO (16:05)
--- NOTE | 2022-09-26 18:30 | RT.EKG_ITS ---
APPROVED REPORT Exam: Resting ECG Reason for Exam: QTC monitoring Patient Location: I HR:71 bpm ECG Measurements Heart Rate 71 AXIS HI 200 P 42 QRSd 109 QRS 45 QT 388 T 62 QTc 422 Conclusion Sinus rhythm...normal P axis, V-rate 50- 99 Low voltage, precordial leads...precordial leads <1.0mV Nonspecific T abnormalities, anterior leads...T <-0.10mV, V2-V4
[2022-09-26] MEDS: Atorvastatin 10 MG TAB PO (20:54)
[2022-09-27] VITALS (23 sets, daily range): BP systolic 108–131; BP diastolic 54–70; PULSE 61–82; RESP 12–28; TEMP 36.4–37.1; O2SAT 90–94
[2022-09-27] MEDS: Sucralfate 1 GM TAB PO ×2 (07:35→11:39)
[2022-09-27] MEDS: Normal Saline Flush 10 ML SYR IVP (07:39)
--- NOTE | 2022-09-27 08:34 | CMSP_ITS ---
- If Service Date Differs Date of service: 09/27/22 Time of Service: 08:34 Care Management Safety Plan Status: Voluntary - Reason for Wait Reason for Wait: Medical Clearance Manisha is a 52-year-old female who is admitted to the ICU for SI s/p intentional overdose of Seroquel and Zoloft. Manisha requires close monitoring and observation at this time, once medically cleared she will be evaluated by mental health for treatment plan. Per report, Manisha has an extensive medication regimen and also has a history of overdosing on her home meds. Manisha identifies her Elton as her primary support person. Contact by phone is permitted at RN discretion. This plan is reviewed with , primary RN Branden and CM RN Cyn. Once medically cleared and assessed by screener, if screener deems patient meets criteria for psychiatric stabilization CM will facilitate interdepartmental huddle with [facility] screener for safety planning considerations and meet with patient to review [facility] policy and safety plan, establish individual wishes for treatment and maintain patient rights. In the interim; please note safety plan below to guide patient care while awaiting further assessment. SAFETY PLAN: 1. Will remain on suicide precautions and in paper clothes. 2. Will remain in room under direct supervision of one-on-one staff at all times provided by GRACE, INVENTORY PLANNER channeling machine operator. 3. May have paper cups, plates, finger foods as well as a cardboard spoon with which to eat meals. 4. Follow [facility] Management of the Admitted Behavioral Health Patient policy. 5. Personal care: Comfort bath system only at this time. 6. Bathroom privileges: with escort in ED. Available in room without limitation on Med/Surg. 6. No personal belongings at this time; per RN discretion. 7. No visitors at this time. 8. Phone calls from are permitted at RN discretion. 9. Activities: Music tablet per RN discretion. Med/Surg: Television and remote available at RN discretion. 10. Due to VOLUNTARY status, if patient wishes to leave [facility], staff will contact [facility] Crisis Screener ([phone]) and On-Call Speech Professor ([phone]) as soon as possible. In the event of elopement, notify [facility] Police ([phone]). If deemed appropriate for inpatient psychiatric care, safety plan will be established with patient, and care team, to adhere to patient goals, identify restrictions based on behavioral status, address nutrition, and determine allowed personal belongings, tools for hygiene and personal care. As well plan will determine level of activity including ambulation, level of supervision, visitors, and determine privileges based on level of acuity, behaviors and level of engagement by patient.
--- NOTE | 2022-09-27 08:38 | CMPROGNOTE_ITS ---
- If Service Date Differs Date of service: 09/27/22 Time of Service: 08:38 Care Management Progress Note S/O: Manisha is medically cleared per MD and screened by [facility] clinician. A safety plan is established and patient is able to discharge home via private vehicle with her with close [facility] follow up. She will also schedule an appointment with her PCP and their in-office behavioral health clinician. A: 52 year old female admitted to [facility] on 09/25/22 for Overdose, Suicidal ideation P: Manisha continues to be closely monitored in the ICU. Once she is medically cleared per provider she will be screened by [facility]. CM will continue to follow.
--- NOTE | 2022-09-27 08:38 | PDOC.CMPRO ---
- If Service Date Differs Date of service: 09/27/22 Time of Service: 08:38 Care Management Progress Note S/O: Manisha is medically cleared per MD and screened by [facility] clinician. A safety plan is established and patient is able to discharge home via private vehicle with her with close [facility] follow up. She will also schedule an appointment with her PCP and their in-office behavioral health clinician. A: 52 year old female admitted to [facility] on 09/25/22 for Overdose, Suicidal ideation P: Manisha continues to be closely monitored in the ICU. Once she is medically cleared per provider she will be screened by [facility]. CM will continue to follow.
[2022-09-27] MEDS: Pantoprazole 40 MG TABCR PO (09:06)
[2022-09-27] MEDS: Ezetimibe 10 MG TAB PO (09:06)
[2022-09-27] MEDS: Famotidine 20 MG TAB PO (09:06)
[2022-09-27] MEDS: Enoxaparin 40 MG/0.4 ML SYR SC (09:06)
--- NOTE | 2022-09-27 12:00 | W.PM.PROGNOT ---
Date of Service Date of service: 09/27/22 Time of Service: 12:00 Assessment and Plan Assessment and plan (1) Overdose: Status: Acute Assessment and plan: Intentional overdose of Seroquel and Zoloft. ECG demonstrates normal sinus rhythm rate of 71 bpm with normal QTc interval 422 ms. Patient is medically cleared for evaluation by mental health and pending the result of her interaction with mental health patient will likely be discharged home later today versus transfer to an inpatient psychiatric facility. (2) Suicidal ideation: Status: Acute Assessment and plan: As above (3) Bipolar 1 disorder: Status: Chronic Assessment and plan: Hold most of patient's chronic medical therapy until medically cleared and psychiatry can review for ongoing treatment. Subjective Subjective Interval history since last seen: Patient recognizes that her decision to take overdose of medications was inappropriate. She is eager to meet with mental health and hopefully be discharged this afternoon. She understands that her and she will need to be included together in coming up with a safety plan with mental health. Exam Narrative Exam Narrative: Manisha is alert and oriented person place time circumstance she readily interacted with me made good eye contact and was not evasive in her answers. Objective Last Vital Signs Temp 36.8 C 09/27/22 09:15 Pulse 67 09/27/22 09:03 Resp 28 H 09/27/22 10:00 BP 131/70 09/27/22 09:03 Pulse Ox 92 09/27/22 06:01 Time Spent with Patient Time Spent with Patient: <25 minutes Time was spent: counseling the patient and care coordination
[2022-09-27 13:14] LABS: Bilirubin Negative (Negative); Blood Negative (Negative); Clarity Clear (Clear); Glucose Negative (Negative); Ketones Negative (Negative); Leukocyte Esterase Negative (Negative); Nitrite Negative (Negative); Specific Gravity 1.015 (1.005-1.025); Urobilinogen 0.2 EU/dL (Up TO 0.2); pH 6.5 (5-8)
--- NOTE | 2022-09-27 14:18 | CMDISCH_ITS ---
- If Service Date Differs Date of service: 09/27/22 Time of Service: 14:18 LACE Index Scoring Tool - Questions: Length of Stay (in days): 2 Acuity (Admit via E.D.?): Yes E.D. Visits: 1 - Answers: Total Score: 6 Risk of Readmission: Low Risk Care Management Discharge Reason for Hospitalization: Overdose, Suicidal ideation Discharge Plan: A safety plan is established with [facility] clinician and Manisha is able to discharge home via private vehicle with her . Manisha agrees to follow up with [facility], her PCP and communicate with [facility] via phone, as discussed. Patient/Family Education Needs: Review discharge instructions, medications and plan to follow up with [facility] and PCP. Discuss ask me three.
--- NOTE | 2022-09-27 14:18 | PDOC.CMDIS ---
- If Service Date Differs Date of service: 09/27/22 Time of Service: 14:18 LACE Index Scoring Tool - Questions: Length of Stay (in days): 2 Acuity (Admit via E.D.?): Yes E.D. Visits: 1 - Answers: Total Score: 6 Risk of Readmission: Low Risk Care Management Discharge Reason for Hospitalization: Overdose, Suicidal ideation Discharge Plan: A safety plan is established with [facility] clinician and Manisha is able to discharge home via private vehicle with her . Manisha agrees to follow up with [facility], her PCP and communicate with [facility] via phone, as discussed. Patient/Family Education Needs: Review discharge instructions, medications and plan to follow up with [facility] and PCP. Discuss ask me three.
--- NOTE | 2022-09-27 15:19 | DSE_ITS ---
Date of service: 09/27/22 Time of Service: 15:20 DS: Diagnosis Discharge Diagnosis (1) Overdose: Status: Resolved (2) Suicidal ideation: Status: Acute (3) Bipolar 1 disorder: Status: Chronic Discharge Plan Disposition Patient Disposition: Home Condition: Improving Discharge Details Reason For Visit: Suicidal Ideation with Intentional Overdose Admit Date/Time: 09/25/22 23:08 Admit Provider: Morgan Eckert Attending Provider: Morgan Eckert Primary Care Provider: Molly Hinson V Hospital Course Hospital Course: 52 yr old female w/ hx of depression, hyperlipidemia, bipolar disorder, asthma and unspecified cardiomyopathy, remote hx of cutting as a teenager who had been in a verbal argument w/ her and acted out by taking an intentional overdose of Seroquel and Zoloft. Estimated 6 to 12 tablets of Seroquel 200 mg each and 5 to 6 tablets of Zoloft 300 mg. Patient was found to have prolonged QTC of 530 msec and rhythm of sinus. UDS was negative except for tricyclics which was felt to be false positive from the Seroquel. Poison control was contacted and advised for patient to be admitted for telemetry and neurologic monitoring for prolonged QTC and arrhythmias as well as somnolence. Patient did well and had no arrhythmias and serial ekg were performed and her QTC corrected to 422 msec. Mental health was consulted and made a safety plan with the patient. As the patient was no longer expressing suicidal wishes and agreed to follow up safety plan with [facility], she was discharged in medically improved and stable condition. See mental health providers safety plan for details. Home Meds and New Rx's Prescriptions: Continued acetaminophen [Tylenol] 325 mg capsule 325 mg PO Q6H PRN atorvastatin [Lipitor] 10 mg tablet 10 mg PO DAILY sumatriptan succinate [Imitrex] 100 mg tablet 100 mg PO BID PRN (Reason: prn) nitroglycerin [Nitrostat] 0.4 mg tablet, sublingual 0.4 mg SL Q5-15M PRN ezetimibe [Zetia] 10 mg tablet 10 mg PO DAILY quetiapine [Seroquel] 50 mg tablet 50 mg PO BID PRN cyclobenzaprine 10 mg tablet 10 mg PO BID PRN polyethylene glycol 3350 [Miralax] 17 gram/dose powder 17 gm PO DAILY hydrocodone-acetaminophen 5-325 mg tablet 1 tab PO TID PRN bupropion HCl [Wellbutrin SR] 150 mg tablet sustained-release 12 hr 150 mg PO BID lorazepam [Ativan] 0.5 mg tablet 0.5 mg PO DAILY PRN sertraline [Zoloft] 100 MG tablet 300 mg PO HS quetiapine [Seroquel] 200 MG tablet 600 mg PO HS gabapentin 300 MG capsule 900 mg PO HS topiramate [Topamax] 200 MG tablet 200 mg PO HS albuterol sulfate [ProAir HFA] 200 PUFF HFA aerosol inhaler 2 puff Inhalation Q4H PRN sucralfate [Carafate] 1 gram tablet 1 g PO QACHS Qty: 120 12RF famotidine 20 mg tablet 20 mg PO BID Qty: 0 0RF cyanocobalamin (vitamin B-12) 1,000 mcg/mL solution 1,000 mcg IM Q28D Patient Comments: INJECT 1000MCG (1ML) INTRAMUSCULARLY EVERY FOUR WEEKS docusate sodium 100 mg capsule 100 - 200 mg PO DAILY Patient Comments: TAKE ONE TO TWO CAPSULES BY MOUTH EVERY DAY omeprazole 20 mg capsule,delayed release(DR/EC) 20 mg PO BID Patient Comments: TAKE ONE CAPSULE BY MOUTH TWICE A DAY Discharge Instructions Instructions: Depression (DC), Suicide Prevention (DC) Referrals: Molly Hinson MD [Primary Care Provider] - 10/05/22 1:00 pm Activity:: Activity as Tolerated Equipment/Supplies:: No Equipment Needed Diet:: Normal Diet Discharge Orders Discharge Orders: Discharge Order (Routine); Ordered 09/27/22 Ordered By: Damaso Villalobos Discharge Data Discharge Date/Time-TO BE ENTERED AT DEPARTURE: 09/27/22 16:00 DS: Summary Time Spent with Patient providing and/or coordinating discharge services: Less than 30 minutes Specific discharge activities: Interview/exam of patient; review of discharge instructions, completion of prescriptions/discharge instructions; discussion w/ nursing and CM; documentation of hospital visit Status at Discharge Functional status at discharge: independent ambulation Overall status at discharge: patient is back to baseline Mental Status: mental status grossly normal Speech and Movement: speech and movement normal Mood: congruent mood Affect: normal affect Exam Narrative Exam Narrative: Manisha is alert and oriented person place time circumstance she readily interacted with me made good eye contact and was not evasive in her answers. She is not expressing suicideal ideation at present and she is forward thinking, looking forward to working out her differences w her and she understands the safety plan set out for her by [facility] Mental Status: mental status grossly normal Speech and Movement: speech and movement normal Mood: congruent mood Affect: normal affect DS: Data Vitals/I&O Vitals and I&O: Vital Signs Temperature 37.1 C 09/27/22 14:07 Temperature Source Temporal Artery Scan 09/27/22 09:15 Pulse 67 09/27/22 09:03 Pulse 74 09/27/22 10:00 Respiratory Rate 28 H 09/27/22 10:00 Respiratory Effort Normal, Non-Labored 09/27/22 14:07 Respiratory Depth Normal 09/27/22 14:07 Respiratory Pattern Normal 09/27/22 14:07 Blood Pressure 131/70 09/27/22 09:03 Blood Pressure Mean 86 09/27/22 09:03 Blood Pressure Position Sitting 09/27/22 14:07 Pulse Oximetry 92 09/27/22 06:01 Respiratory End-tidal CO2 43 09/26/22 09:10 Oxygen Delivery Method Room Air 09/27/22 14:07 Oxygen Flow Rate 0 09/27/22 14:07 Pain Level 0 09/27/22 14:07 Comment RN notified 09/26/22 01:00 Intake & Output 09/26/22 09/27/22 09/27/22 23:59 11:59 23:59 Intake Total 300 / 1607.917 620 / 1600 980 / 1600 Output Total 3100 / 4150 1500 / 1900 400 / 1900 Balance -2800 / -2542.083 -880 / -300 580 / -300 Intake: IV 10 Oral 300 / 780 610 / 1590 980 / 1590 Output: Urine 3100 / 4150 1500 / 1900 400 / 1900 Other: Urine Color Yellow Yellow Yellow Urine Appearance Clear Clear Clear Urine Odor None Normal Normal Comment using bedside commode pt denies dysuria. pt reports using panty liners pt denies dysuria. pt reports using panty liners Stool Size Moderate Stool Characteristics Soft Formed Voiding Methods Bedside Commode Bedside Commode Bedside Commode Data Completed and Pending Labs on day of discharge: Labs from last 24 hours 09/27/22 13:00 Urine Color Yellow Urine Clarity Clear Urine pH 6.5 Ur Specific [place] 1.015 Urine Protein Negative Urine Ketones Negative Urine Blood Negative Urine Nitrite Negative Urine Bilirubin Negative Urine Urobilinogen 0.2 Ur Leukocyte Esterase Negative Urine Glucose Negative PFSH All Active Problems (Updated 09/28/22 @ 00:03 by ILYA FOSTER) Suicidal ideation (Acute) Tubular adenoma of colon (Acute) Adenomatous colon polyp (Acute) Hiatal hernia with GERD (Acute) Abnormal brain MRI (Acute) Syncope (Chronic) Headache, chronic migraine without aura (Chronic) Smoker (Acute) History of pseudoseizure (Acute) pT. STATES IT HAS BEEN YEARS SINCE LAST SEIZURE Smoker (Acute) Migraine (Chronic) Bipolar 1 disorder (Chronic) Cardiomyopathy (Acute) GERD (gastroesophageal reflux disease) (Chronic) Arthritis (Acute) Hyperlipidemia (Acute) Obesity (Chronic) IBS (irritable bowel syndrome) (Chronic) Asthma (Chronic) Chronic back pain (Acute) Vitamin B 12 deficiency (Acute) Syncope (Chronic) Pt. states it has been a month since she has passed out. Palpitations (Acute) Medical History Abdominal discomfort Chest pain Pt. states is was related to gas pain Constipation Duodenitis Easy bruising Falls Pt. states r/t syncope Fibromyalgia Foot pain Gastropathy Hip pain Hip pain, bilateral History of fall Hypotension Itchy skin Knee pain, left Lumbar herniated disc Paresthesia Reaction, situational Recurrent boils Rib pain Shoulder pain, right Skin lesion Visual changes Surgical History Arthroscopy, Shoulder left Cholecystectomy Hx of colonoscopy Replacement of total knee joint bilateral S/P foot surgery, left Family History Mother Colon cancer COPD (chronic obstructive pulmonary disease) Stroke Father Heart disease Esophageal cancer Social History Smoking/Tobacco Use Status: Current every day Tobacco Type: cigarettes Smoking packs per day: 1 Smoking cigarettes per day: 20.0 Smoking risk assessment performed?: Yes Alcohol Intake: never Drug use: Never Substance use type: does not use Details: OD on seroquel and zoloft 09/26/22 Household members: spouse Number of Children: 4 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 Current gender identity: female Do you feel safe at home: Yes Do you feel safe in your relationship?: Yes Time Spent with Patient Time Spent with Patient: <45 minutes Time was spent: preparing to see the patient(eg.review tests), obtaining and/or reviewing separately otained hiistory, counseling the patient and care coordination
--- NOTE | 2022-09-27 16:19 | PDOC.MHCN_ITS ---
Date of service: 09/27/22 Time of Service: 16:19 PHQ-9 Over the last 2 weeks, how often have you been bothered by any of the following problems? 1. Little interest or pleasure in doing things: several days 2. Feeling down, depressed, or hopeless: several days 3. Trouble falling or staying asleep, or sleeping too much: several days 4. Feeling tired or having little energy: several days 5. Poor appetite or overeating: several days 6. Feeling bad about yourself - or that you are a failure or have let yourself and your family down: several days 7. Trouble concentrating on things, such as reading the newspaper or watching television: not at all 8. Moving or speaking so slowly that other people could have noticed? - Or the opposite - being so fidgety or restless that you have been moving around a lot more than usual: not at all 9. Thoughts that you would be better off or of hurting yourself in some way: several days Total score: 7 If you checked off any problems, how difficult have these problems made it for you to do your work, take care of things at home, or get along with other people?: somewhat difficult Source: Developed by Drs. Lyle Gale, Tiffany Manzo, Mohinder Reina and colleagues, with an educational leon from [employer]. Suicide Severity Rate CSSRS Have you wished you were or wished you could go to sleep and not wake up?: Yes Have you actually had any thoughts of killing yourself?: Yes CSSRS2 Have you been thinking about how you might do this?: No Have you had these thoughts and had some intention of acting on them?: Yes Have you started to work out or worked out the details of how to kill yourself? Do you intend to carry out this plan?: No CSSRS3 Have you ever done anything, started to do anything or prepared to do anything to end your life?: Yes CSSRS4 Was this within the past three months?: Yes Screening Score Total Score: 8 Screening: Positive Mental Health Emergency Note Release [facility] release signed:: Yes Reason for Visit Client presented to [facility] ED on 09.25.2022 after an intentional overdose of her prescribed medications. She became medically cleared on 09.27.2022 and [facility] requested a screening. In the last 2 weeks has the pt presented for ES prior to today?: No Client Information Client is: New Non Suicidal Self Injury Current: No History: yes, cutting Safety Risk/Harm to Self or Others Current Ideation to Harm Self or Others: No Risk: Does risk to harm exist?: No Risk: Low Risk Duty to warn indicated: No Asssessment/Mental Status Appearance: Unremarkable Attitude: Cooperative Behavior: Unremarkable Speech: Normal Affect: Cogruent with mood Mood: Sad, Depressed and Anxious Thought process: Goal directed Hallucinations: No Delusions: No Perception: Not impaired Orientation: Fully orientated Memory: Intact Insight: Good Judgement: Good Neurovegetative Symptoms Sleep: No change Appetitie: No change Interests: No change Energy: No change Libido: Not applicable Substance Use: Do you use nicotine?: No Have you used substances in the last 7 days?: No Additional Issues: Assaultive/Threatening Behavior: No Medical Concerns: No Client engaged in active self harm w/weapon: No Threatening to run away: No Child reported abuse/neglect: No Voluntarily presenting for services: Yes Domestic violence is a concern: No Extreme Psychosis or extreme behavior is present: No Impression Client is a 52 year old, female who lives with her of 33 years in [facility]. She has a standing diagnosis and treatment for said diagnosis through her PCP office. Client reported that she made a stupid mistake all because I was in an argument with my over silly teenager things. She described the argument being about her being sensitive to noise when he is trying to sleep and her being up late playing on her computer, VR set or watching TV. He had shut her TV off and then asked her to make him some food and this carried on for two days and so she impulsively took her medicine and drove away from the home to overdose. She said her son found her and brought her home and then they called 911. Client is tearful when she shares what she described as a silly decision. She shows good insight and judgement and remorse for her actions. Client has already began planning prior to this clinician's arrival her next steps for treatment through her PCP office to include a follow up with her PCP and getting a referral for counseling also in her PCP office. Resources Reosurces reviewed and given:: 988 and Other Plan/Disposition Recommended Disposition: PCP/Office visit and Therapy. Plan: Client will do daily check in calls with ES on 09.28 and 09.29. She will follow up with her PCP for an appointment and referral for counseling. Her will be in charge of her meds and administer until directed otherwise by the PCP. Person reported agreement to plan: Yes Reports/communication Outcome discussed with: ED/Personnel
== END 2022-09-27 16:00 | disposition home or self-care (01) | DRG 918 ==
LOC: ER 23:28 → ICU 09-26 01:23
PROVIDERS: Internal Medicine; Admitting Provider Family Medicine; Emergency Provider Emergency Medicine; PCP Family Medicine; Visit Provider Family Medicine
DX: T43.592A Poisoning by other antipsychotics and neuroleptics, intentional self-harm, initial encounter (principal); R45.851 Suicidal ideations; I42.9 Cardiomyopathy, unspecified; Z68.41 Body mass index [BMI] 40.0-44.9, adult; R94.31 Abnormal electrocardiogram [ECG] [EKG]; T43.222A Poisoning by selective serotonin reuptake inhibitors, intentional self-harm, initial encounter; F31.9 Bipolar disorder, unspecified; K44.9 Diaphragmatic hernia without obstruction or gangrene; F17.210 Nicotine dependence, cigarettes, uncomplicated; G43.909 Migraine, unspecified, not intractable, without status migrainosus; K21.9 Gastro-esophageal reflux disease without esophagitis; E78.5 Hyperlipidemia, unspecified; E66.9 Obesity, unspecified; K58.9 Irritable bowel syndrome, unspecified; J45.909 Unspecified asthma, uncomplicated; G89.29 Other chronic pain; M54.9 Dorsalgia, unspecified; E53.8 Deficiency of other specified B group vitamins; R55 Syncope and collapse; R47.81 Slurred speech
CPT/HCPCS: 36415; 80053; 80307; 85027; 87635; 93005; 99285; J1650; 80320; 80329; 81003; 81015; 83735; 84484; 85025; 93010; 99222; 99232; 99238

== ENCOUNTER → 2023-03-28 02:13 | Outpatient (CLI) | payer OTHER, MEDICAID, SELFPAY ==
--- NOTE | 2023-03-28 | DI.NM_ITS ---
APPROVED REPORT Exam: Pharmacologic Patient Location: Out-Patient Room/Bed: Stress Nurse: Karen Rubio RN Ordering Provider:TAMICA DAVID, Contact Number: [phone] BMI: 44.05 Baseline Rhythm: Sinus Rhythm Comment: 1st degree AV block Indications: Smoker, Chest pain, FRANZ Medical History Medical History: Falls, hypotension, SI, syncope, GERD, Headache, chronic migraine, smoker, hx of pse udoseizure, bipolar 1 disorder, cardiomyopathy, HLD, arthritis, obesity, IBS, asthma, palpitations, c hronic back pain, vitamin b12 deficiency, fibromyalgia Cardiac Medications: Topiramate, sumatriptan, aspirin, sucralafate, quetiapine, omeprazole, nitro, lo razepam, hydrocodone with tylenol, gabapentin, famotidine, exetimibe, cyclobenzaprine, buproprion, at orvastatin, albuterol sulfate Allergies: Simvastatin, ezetimibe, penicillins, adhesive tape, dexilant, cymbalta, chantix Cardiac Risk Factors: Family hx, HLD, CVD, asthma, smoker, obesity Previous Cardiac Procedures: Cardiac catherization approx 10 years ago Pretest Chest Pain Characteristics: None Exercise History: Sedentary Physical Disabilities: Knees, hx of syncope Lung Sounds: Clear to auscultation Heart Sounds: Regular Stress Test Details Test: Pharmacologic stress testing performed using 0.4 mg of regadenoson per 5 mL given IV over 10 s econds. Reason for pharmacologic stress test: physical limitation, hx of syncope. Nuclear Acquisition: Rest Tc-99m/Stress Tc-99m 1 day Rest Isotope: Tc-99m Sestamibi. Dose: 11.5 Date: 03/28/2023 Injection Time: 1110 Stress Isotope: Tc-99m Sestamibi. Dose: 36.4 Date: 03/28/2023 Injection Time: 1300 HR Resting HR Supine: 73 bpm Max Heart Rate (APMHR): 167.709171 bpm Target HR (85% APMHR): 141.084263 bpm Max HR Achieved: 89 bpm % of APMHR: 53.29 Recovery HR: 84 bpm BP Resting BP Supine: 132/68 mmHg Max BP: 132/68 mmHg Recovery BP: 115/62 mmHg ECG Resting ECG: Sinus Rhythm Ectopy: None Stress ECG: Sinus Rhythm ST Change: Nondiagnostic low heart rate Arrhythmia: None Recovery ECG: Sinus Rhythm Recovery ST Change: Nondiagnostic low heart rate Recovery Arrhythmia: None Clinical Stress Symptoms: Dyspnea, Chest pressure Angina Score: Non-Limiting Rate Pressure Product: 20432 Stress ECG Conclusion 1. Resting electrocardiogram is within normal limits 2. Patient underwent testing using a combination of low-level exercise and pharmacologic stress with regadenoson 3. Peak heart rate achieved was 53% of predicted for age 4. The electrocardiographic portion of the test was nondiagnostic 5. See MPI report Stress Test Summary STAGE HR BP SpO2 Symptoms NOTES Supine 73 132/68 1 min post Lexiscan injection 87 122/58 3/10 chest pressure, mod dyspnea 3 min post Lexiscan injection 82 126/60 2/10 chest pressure, mod dyspnea 6 min post Lexiscan injection 84 115/62 All Symptoms resolved. MPI Conclusion There is no myocardial ischemia or evidence of prior infarction. There is breast attenuation artifac t EF is 51% with normal wall motion Radiologist Interpretation Radiologist Interpretation by: Lyle Gold MD Interpretation Date/Time: 04/01/2023 18:06:02
[2023-03-28] MEDS: Regadenoson 0.4 MG/5 ML SYR IVP (12:57)
== END ==
PROVIDERS: PCP Family Medicine; Visit Provider Family Medicine
DX: R07.9 Chest pain, unspecified (principal)
CPT/HCPCS: 78452; 93016; 93018; 93017; J2785

== ENCOUNTER → 2023-04-04 02:05 | Outpatient (CLI) | payer OTHER, MEDICAID, SELFPAY ==
--- NOTE | 2023-04-04 | DI.CTLCSR_ITS ---
Exam(s) CT CHEST LUNG CANCER SCREEN EXAM: CT CHEST LUNG CANCER SCREEN CLINICAL HISTORY: SCREENING FOR LUNG CA, CURRENT SMOKER, F17.210. TECHNIQUE: Imaging Protocol: Low Dose Technique CONTRAST MATERIAL: None COMPARISON: CR XR CHEST 2V PA LATERAL from 05/02/2020 FINDINGS: CHEST: LUNGS: There are no ominous pulmonary nodules. There are no confluent infiltrates. No pleural effusi ons. MEDIASTINUM: There is no obvious hilar nor mediastinal adenopathy. CARDIAC: Heart size is normal. No pericardial effusion. Maximum thickness 5 mm.. OTHER: No obvious adrenal masses nor splenomegaly. OSSEOUS: No significant osseous lesions.. IMPRESSION: 1. No significant pulmonary nodules. No infiltrates. No pleural effusions. No intrathoracic. 2. Small pericardial effusion noted. 3. Lung RADS Cat 1S - Negative: No nodules and definitely benign nodules Lung-RADS 1.0 CATEGORIES: Category 0 - Prior chest CT exam(s) being located for comparison. Category 1 - Annual screening in 12 months. No nodules or definitely benign nodules. Category 2 - Annual screening in 12 months. Benign appearance. Nodules with low likelihood of becomin g active cancer. Category 3 - 6-month follow-up. Probably benign. Short-term follow-up suggested. Nodules with low lik elihood of becoming active cancer. Category 4A - 3-month follow-up and CT/PET if >8 mm in size. Suspicious finding. Findings which requi re additional testing. Category 4B - Findings which require additional testing and tissue sampling. Category 4X - Category 3 or 4 nodules with additional features or imaging findings that increases the suspicion of malignancy. Modifier S- Potentially clinically significant findings (non lung cancer) RADIATION DOSE DELIVERED: 71.2mGy.cm Total DLP DATA REPOSITORY: All CT scans at this facility are submitted to the National Radiology Data Registry (NRDR) Dose Index Registry (DIR) with the [employer] (A[employer]). RADIATION OPTIMIZATION: All CT scans at this facility use at least one of these dose optimization te chniques: automated exposure control; mA and/or kV adjustment per patient size (includes targeted exa ms where dose is matched to clinical indication); or iterative reconstruction.
--- NOTE | 2023-04-04 | DI.US_ITS ---
Exam(s) US THYROID EXAM: US THYROID CLINICAL HISTORY: THYROID NODULE,E04.1. TECHNIQUE: Ultrasound thyroid performed using standard protocol. COMPARISON: US LEFT BREAST ULTRASOUND {[id number]} from 09/17/2014 FINDINGS: Both thyroid lobes exhibit upper normal-minimally prominent size but homogeneous echotexture and with no evidence of concerning nodules. There are few tiny benign colloid cysts in the left lobe. LYMPH NODES: There few small benign-appearing lymph nodes bilaterally. No significant adenopathy piero dent.. IMPRESSION: No significant findings on this thyroid ultrasound examination. DATA REPOSITORY:
--- NOTE | 2023-04-04 | DI.MAMMO_ITS ---
Exam(s) MAMMO SCREENING EXAM: MAMMO SCREENING CLINICAL HISTORY: SCREENING, Z00.00,ON LICENSE OF [facility]. TECHNIQUE: Bilateral full field digital CC and MLO mammographic images were obtained with 3D tomosyn thesis and utilizing computer aided detection (CAD). COMPARISON: Prior mammograms were reviewed. FINDINGS: There has been no significant change in the appearance and distribution of the fibroglandular tissue. Small benign-appearing nodule in the right breast is unchanged from February 2021. There are no new spiculated masses nor malignant appearing microcalcification groups. There is no significant architectural distortion nor skin thickening-retraction. IMPRESSION: No radiographic evidence of malignancy. BI-RADS Category 1 - Negative Breast Density - Category B - Scattered areas of fibroglandular density Breast density Category C or D implies that the patient has dense breast tissue. Dense breast tissue can make it harder to find cancer on a mammogram. Dense breast tissue is also associated with an incr eased risk of breast cancer. This information about the result of the mammogram report was provided to the patient to raise their awareness. Use this report when you speak with the patient about their risks for breast cancer, which includes their family history. At that time, you may recommend additional screening tests (Ultrasoun d or MRI) as these tests may add significant information. A negative radiographic report should not delay biopsy if a dominant or clinically suspicious mass is present. Up to ten percent of cancers are not identified on mammography. A negative report may reinforce clinical impression. Adenosis and dense breasts may obscure an underlying neoplasm. False positive reports average 6 to 10%. Patient will receive a letter notifying them of these results.
== END ==
PROVIDERS: PCP Family Medicine; Visit Provider Family Medicine
DX: F17.210 Nicotine dependence, cigarettes, uncomplicated (principal); Z12.2 Encounter for screening for malignant neoplasm of respiratory organs
CPT/HCPCS: 71271; 77063; 77067; 76536

== ENCOUNTER → 2023-05-10 01:44 | Outpatient (CLI) | payer OTHER, MEDICAID, SELFPAY ==
--- NOTE | 2023-05-10 10:30 | DI.US_ITS ---
APPROVED REPORT EXAM: Comprehensive 2D, Doppler, and color-flow Echocardiogram Patient Location: Out-Patient [facility] Examiner: Avis Miller RDCS (AE) Indications: Pericardial effusion, Non inflammatory, Smoker Other Information Study Quality: Adequate. Technically limited study due to body habitus. Conclusion Normal left ventricular wall thickness and chamber size. Ejection fraction is 55%. Wall motion is n ormal Normal right ventricular size and systolic function Both atria are normal in size There is no structural or hemodynamically significant valvular disease Estimated right ventricular systolic pressure is 21 mmHg There is no significant pericardial effusion Wall motion Left Ventricle The left ventricle is normal size. The left ventricular systolic function is normal. The left ventric ular ejection fraction is within the normal range. There is normal left ventricular wall thickness. T here is normal LV segmental wall motion. There is no ventricular septal defect visualized. LVEF is 55 %. Right Ventricle The right ventricle is normal size. The right ventricular systolic function is normal. Atria The left atrium size is normal. The right atrium size is normal. The interatrial septum is intact wit h no evidence for an atrial septal defect. Aortic Valve The aortic valve is normal in structure. Aortic valve is trileaflet. There is no aortic valvular sten osis. Mitral Valve The mitral valve is normal in structure. No evidence of mitral valve stenosis. Trace to mild mitral r egurgitation. Tricuspid Valve The tricuspid valve is normal in structure. There is no tricuspid valve stenosis. Trace tricuspid reg urgitation. The RVSP is 20.8 mmHg. Pulmonic Valve The pulmonary valve is normal in structure. There is no pulmonic valvular stenosis. Trace pulmonic re gurgitation. Great Vessels The aortic root is normal in size. The ascending aorta is normal in size. Aortic arch is normal in ca liber. IVC is normal in size and collapses >50% with inspiration. Pericardium There is no significant pericardial effusion. 2D Dimensions IVSD d PLAX 1.02 cm F: 0.6-1.0 Ao Root d 3.33 cm F: 2.7 - 3.3 LVPW d PLAX 1.00 cm F: 0.6 - 1.0 Ao Asc Diam d 3.26 cm F: 2.3 - 3.1 LVID d PLAX 5.26 cm F: 3.8 - 5.2 LVDs 3.90 cm F: 2.2 - 3.5 LV EF Teichholz 50.4 % FS 25.82 % LV EDV (Teich) 133.1 mL LV ESV (Teich) 66.1 mL M-Mode TAPSE 2.26 cm (M/F) >1.7 Auto EF LV EDV A4C 113.9 mL LV EDV A2C 121.2 mL LV EDV BP LV ESV A4C 56.7 mL LV ESV A2C 60.1 mL LV ESV BP LVEF(%) A4C 50.3 % LVEF(%) A2C 50.4 % LVEF(%) BP LV SV A4C 57.3 ml LV SV A2C 61.1 ml LV SV BP LV CO A4C 3.9 L/min LV CO A2C 4.2 L/min LV CO BP HR A4C 68.31 BPM HR A2C 68.19 BPM LV EDV Index (BP) LA Volume LA Length A4C 6.1 cm LA Length A2C 5.4 cm LA Area A4C s 25.09 cm2 LA Area A2C s 19.64 cm2 LA Vol A4C A-L 86.97 mL LA Vol A2C A-L 60.98 mL LA Vol Biplane A-L 77.9 mL LA Vol/BSA A4C A-L LA Vol/BSA A2C A-L LA Vol/BSA BP A-L 34.0 mL/m2 LA Vol A4C MOD 81.0 mL LA Vol A2C MOD 56.7 mL LA Vol BP MOD 72.3 mL RA Volume RA Area A4C 17.1 cm2 RA ESV A4C (A-L) 47.8mL RA Vol/BSA A4C A-L RA Length A4C 5.2 cm RA ESV A4C (MOD) 45.4mL LV Diastology MV E' medial 0.080 (>0.07 m/s) MV E Vmax 0.64 (0.4-1.3 m/s) MV E/E' MED 7.98 (<14) MV A Vmax 0.60 (0.4-1.3 m/s) MV E' lateral 0.091 (>0.1 m/s) E/A Ratio 1.1 MV E/E' LAT 7.06 (<14) MV E' Average 0.085 m/s MV E/E'(average) 7.49 Aortic Valve AoV Vmax 1.55 m/s LVOT Vmax 1.14 m/s AoV Peak Grad 9.6 mmHg LVOT Peak Grad 5.2 mmHg AoV Area (Vmax) 2.50 cm2 LVOT VTI 0.267 m AoV VTI 0.362 m LVOT Mean Grad 3.0 mmHg AoV Mean Mihai. 1.08 m/s LVOT SV 90.57 mL AoV Mean Grad 5.3 mmHg LVOT Diam s 2.05 cm AoV Area (VTI) 2.50 cm2 Velocity Ratio 0.74 Mitral Valve MV DT 240 (160-240 msec) MV Vmax TIPS 0.74 m/s MV Mean Grad 1.2 (<2mmHg) MV VTI 0.248 m Pulmonary Valve PV Vmax 1.01 (0.5-1.5 m/s) RVOT Vmax 0.89 m/s PV Peak Grad 4.1 mmHg RVOT Peak Gr. 3.2 mmHg PV Mean Mihai 0.75 m/s RVOT VTI 0.194 m PV Mean Grad 2.6 mmHg RVOT Mean Gr. 1.8 mmHg Tricuspid Valve RA Pressure 3.00 mmHg TR Vmax 2.11 m/s TV S' 0.13 m/s TR Peak Grad 17.8 mmHg RVSP (TR) 20.8 mmHg
== END ==
PROVIDERS: PCP Family Medicine; Visit Provider Family Medicine
DX: I31.39 Other pericardial effusion (noninflammatory) (principal); F17.210 Nicotine dependence, cigarettes, uncomplicated
CPT/HCPCS: 93306

== ENCOUNTER 2023-09-10 16:36 | Outpatient (REF) | payer OTHER, SELFPAY ==
[2023-09-18 02:47] LABS: EDDP-by GC-MS Negative ng/mL (Cutoff: 100); Methadone Interpretation Negative.; Methadone-by GC-MS Negative ng/mL (Cutoff: 100)
== END 2023-09-10 16:37 | disposition home or self-care (01) ==
LOC: NCHCN 16:36
PROVIDERS: PCP Family Medicine; Visit Provider Family Medicine
DX: Z51.81 Encounter for therapeutic drug level monitoring (principal)
CPT/HCPCS: 80358

== ENCOUNTER 2023-12-03 14:18 | Outpatient (REF) | payer MEDICARE, MEDICAID, SELFPAY ==
[2023-12-06 03:53] LABS: EDDP-by GC-MS Negative; Methadone Interpretation Negative.; Methadone-by GC-MS Negative
== END 2023-12-03 14:19 | disposition home or self-care (01) ==
LOC: NCHCN 14:18
PROVIDERS: PCP Family Medicine; Visit Provider Family Medicine
DX: M79.7 Fibromyalgia (principal)
CPT/HCPCS: 80358

== ENCOUNTER 2023-12-16 12:03 | Emergency (ER) | payer MEDICARE, MEDICAID, SELFPAY ==
[2023-12-16] VITALS (25 sets, daily range): BP systolic 116–145; BP diastolic 60–98; PULSE 63–87; RESP 18; TEMP 37; O2SAT 93–99
--- NOTE | 2023-12-16 13:00 | DI.CT_ITS ---
Exam(s) CT ABDOMEN PELVIS W EXAM: CT ABDOMEN PELVIS W CLINICAL HISTORY: left flank pain radiating to suprapubic region. TECHNIQUE: Imaging Protocol: Axial computed tomography images with coronal and sagittal reformatted images were created and reviewed CONTRAST MATERIAL: Intravenous: Omnipaque 350 Contrast volume:100 ml Oral: / no COMPARISON: CT,NM,TMT NM MPI REST STRESS GRP from 03/28/2023 FINDINGS: ABDOMEN and PELVIS: Lung Bases: No acute findings. Liver: Normal density. No suspicious mass. Gallbladder and biliary tract: Status post cholecystectomy. No radiodense calculus. No biliary dila tion. Pancreas: Normal density. No abnormal calcifications or inflammatory process. No evidence of mass. Spleen: Normal. Kidneys: Normal size, contour and axis. Tiny nonobstructing stone upper pole right kidney. No obstr uctive uropathy. No suspicious masses seen. Adrenal glands: No masses seen. Vasculature: Abdominal aorta non-dilated. Atherosclerotic changes. Soft tissues: Small fatty containing umbilical hernia. Bladder: No gross wall thickening. No calculi.No focal mass. Bowel: Moderate quantity of stool. No diverticulosis. No obstruction. No bowel wall thickening. A ppendix normal. Peritoneal cavity: No ascites. No focal collection. No mesenteric inflammatory response. Bones: Unremarkable for age. Reproductive organs: Unremarkable. Lymph nodes: No pathologically enlarged lymph nodes. IMPRESSION:: No acute abnormality in the abdomen or pelvis. Tiny nonobstructing stone upper pole right kidney. No ureteral or bladder calculi. RADIATION DOSE DELIVERED: 1,585.84mGy.cm Total DLP DATA REPOSITORY: All CT scans at this facility are submitted to the National Radiology Data Registry (NRDR) Dose Index Registry (DIR) with the [employer] (ACR). RADIATION OPTIMIZATION: All CT scans at this facility use at least one of these dose optimization te chniques: automated exposure control; mA and/or kV adjustment per patient size (includes targeted exa ms where dose is matched to clinical indication); or iterative reconstruction.
--- NOTE | 2023-12-16 13:03 | W.ED.GENAD ---
Discharge Plan Disposition Patient Disposition: Home Condition: Improving Discharge Details Chief Complaint: Abd Prob Clinical Impression: Flank pain Primary Care Provider: Molly Hinson V ED Provider: Samir Zhao Home Meds and New Rx's Prescriptions: No Action acetaminophen [Tylenol] 325 mg capsule 325 mg PO Q6H PRN atorvastatin [Lipitor] 10 mg tablet 10 mg PO DAILY sumatriptan succinate [Imitrex] 100 mg tablet 100 mg PO BID PRN (Reason: prn) Hold Instructions: Pt Stopped/Never Started nitroglycerin [Nitrostat] 0.4 mg tablet, sublingual 0.4 mg SL Q5-15M PRN ezetimibe [Zetia] 10 mg tablet 10 mg PO DAILY quetiapine [Seroquel] 50 mg tablet 50 mg PO BID PRN cyclobenzaprine 10 mg tablet 10 mg PO BID PRN polyethylene glycol 3350 [Miralax] 17 gram/dose powder 17 gm PO DAILY Hold Instructions: Pt Stopped/Never Started hydrocodone-acetaminophen 5-325 mg tablet 1 tab PO TID PRN bupropion HCl [Wellbutrin SR] 150 mg tablet sustained-release 12 hr 150 mg PO BID lorazepam [Ativan] 0.5 mg tablet 0.5 mg PO DAILY PRN sertraline [Zoloft] 100 MG tablet 300 mg PO HS quetiapine [Seroquel] 200 MG tablet 600 mg PO HS gabapentin 300 MG capsule 900 mg PO HS topiramate [Topamax] 200 MG tablet 200 mg PO HS albuterol sulfate [ProAir HFA] 200 PUFF HFA aerosol inhaler 2 puff Inhalation Q4H PRN sucralfate [Carafate] 1 gram tablet 1 g PO QACHS Qty: 120 12RF famotidine 20 mg tablet 20 mg PO BID Qty: 0 0RF cyanocobalamin (vitamin B-12) 1,000 mcg/mL solution 1,000 mcg IM Q28D Patient Comments: INJECT 1000MCG (1ML) INTRAMUSCULARLY EVERY FOUR WEEKS docusate sodium 100 mg capsule 100 - 200 mg PO DAILY Patient Comments: TAKE ONE TO TWO CAPSULES BY MOUTH EVERY DAY omeprazole 20 mg capsule,delayed release(DR/EC) 20 mg PO BID Patient Comments: TAKE ONE CAPSULE BY MOUTH TWICE A DAY Discharge Instructions Instructions: Flank Pain (ED) Additional Instructions: Please follow-up closely with your primary care physician. HPI General Date/Time Provider Initiated Documentation: 12/16/23 12:39. HPI Narrative: 53-year-old female presents with left flank discomfort rating to her groin over the last day denies dysuria denies fevers or chills. Related Data Home Medications Medication Instructions Recorded Confirmed albuterol sulfate 90 mcg/actuation 2 puff inhalation Q4H PRN 12/19/15 12/16/23 aerosol inhaler (ProAir HFA) gabapentin 300 mg capsule 900 mg PO HS 12/19/15 12/16/23 quetiapine 200 mg tablet (Seroquel) 600 mg PO HS 12/19/15 12/16/23 sertraline 100 mg tablet (Zoloft) 300 mg PO HS 12/19/15 12/16/23 topiramate 200 mg tablet (Topamax) 200 mg PO HS 12/19/15 12/16/23 atorvastatin 10 mg tablet (Lipitor) 10 mg PO DAILY 09/17/18 12/16/23 cyclobenzaprine 10 mg tablet 10 mg PO BID PRN 09/17/18 12/16/23 ezetimibe 10 mg tablet (Zetia) 10 mg PO DAILY 09/17/18 12/16/23 hydrocodone 5 mg-acetaminophen 325 1 tab PO TID PRN 09/17/18 12/16/23 mg tablet nitroglycerin 0.4 mg sublingual 0.4 mg sublingual Q5-15M PRN 09/17/18 12/16/23 tablet (Nitrostat) polyethylene glycol 3350 17 17 gm PO DAILY 09/17/18 12/16/23 gram/dose oral powder (Miralax) quetiapine 50 mg tablet (Seroquel) 50 mg PO BID PRN 09/17/18 12/16/23 sumatriptan succinate 100 mg 100 mg PO BID PRN prn 09/17/18 12/16/23 tablet (Imitrex) acetaminophen 325 mg capsule 325 mg PO Q6H PRN 11/05/18 12/16/23 (Tylenol) bupropion HCl 150 mg tablet,12 hr 150 mg PO BID 05/20/20 12/16/23 sustained-release (Wellbutrin SR) lorazepam 0.5 mg tablet (Ativan) 0.5 mg PO DAILY PRN 05/20/20 12/16/23 famotidine 20 mg tablet 20 mg PO BID #0 tabs 06/09/20 12/16/23 sucralfate 1 gram tablet (Carafate) 1 g PO QACHS #120 tabs 06/09/20 12/16/23 cyanocobalamin (vitamin B-12) 1,000 mcg IM Q28D 09/26/22 12/16/23 1,000 mcg/mL injection solution docusate sodium 100 mg capsule 100 - 200 mg PO DAILY 09/26/22 12/16/23 omeprazole 20 mg capsule,delayed 20 mg PO BID 09/26/22 12/16/23 release Previous Rx's Medication Instructions Recorded famotidine 20 mg tablet 20 mg PO BID #0 tabs 06/09/20 sucralfate 1 gram tablet (Carafate) 1 g PO QACHS #120 tabs 06/09/20 Allergies Allergy/AdvReac Type Severity Reaction Status Date / Time ezetimibe [From Vytorin] Allergy Severe Verified 06/09/20 11:39 simvastatin [From Vytorin] Allergy Severe Verified 06/09/20 11:39 Penicillins Allergy Intermediate Hives Unverified 06/09/20 11:39 adhesive tape Allergy Mild Skin Rash Unverified 06/09/20 11:39 dexlansoprazole AdvReac Severe Verified 06/09/20 11:39 [From Dexilant] duloxetine HCl AdvReac Severe Psychosis Unverified 06/09/20 11:39 [From Cymbalta] varenicline tartrate AdvReac Severe Psychosis Unverified 06/09/20 11:39 [From Chantix] General Stated Complaint: Abd Prob LOIS: 3 Review of Systems Narrative: Review of Systems Constitutional: negative Eyes: negative ENT: negative Cardiovascular: negative Respiratory: negative Gastrointestinal: negative : negative Musculoskeletal: Left flank pain Skin: negative Neurologic: negative Psych: negative Exam Narrative Exam Narrative: Physical Examination General: alert, awake, cooperative, resting comfortably, no acute distress HEENT: normocephalic, atraumatic; PERRL, EOM intact, conjunctiva normal; no nasal discharge; moist mucous membranes, oral and pharyngeal mucosa normal, tolerating secretions Neck: supple, trachea midline; full ROM Chest: normal to inspection Respiratory: normal respiratory effort, speaking in full sentences, clear to auscultation, no wheezing, rales or rhonchi Cardiac: regular rate, regular rhythm, S1S2 intact, no murmurs rubs or gallops GI: abdomen soft, non-tender, non-distended; no palpable mass or hepatosplenomegaly Skin: no lesions, rashes or trauma appreciated Neuro: AAOx3, normal speech, moving all extremities Psych: Appropriate mood and affect Course Vital Signs Vital signs: Vital Signs Temperature 37.0 C 12/16/23 12:12 Pulse 87 12/16/23 12:12 Respiratory Rate 18 12/16/23 12:12 Blood Pressure 145/98 H 12/16/23 12:12 Pulse Oximetry 97 12/16/23 12:12 Temperature 37.0 C 12/16/23 12:12 Temperature Source Tympanic 12/16/23 12:12 Pulse 87 12/16/23 12:12 Respiratory Rate 18 12/16/23 12:12 Blood Pressure 145/98 H 12/16/23 12:12 Blood Pressure Position Sitting 12/16/23 12:12 Pulse Oximetry 97 12/16/23 12:12 Oxygen Delivery Method Room Air 12/16/23 12:12 Oxygen Flow Rate 0 12/16/23 12:12 Pain Level 5 12/16/23 12:12 Medical Decision Making 53-year-old female presents with left flank pain rating to groin and suprapubic region, hemodynamically stable afebrile nontoxic nonperitoneal, consider nephrolithiasis versus UTI versus early pyelonephritis versus colitis versus diverticulitis versus muscular strain. Will obtain screening labs urinalysis CT abdomen pelvis, fluids analgesia close reassessment. 16: 01 patient resting comfortably no acute distress. Labs and imaging unremarkable. Nonperitoneal. Consider musculoskeletal strain of back flank and/or abdomen. Patient to follow-up with primary care physician. Home care instructions and return precautions given Quality:SDOH Health Related Social Needs: No Data to Display PFSH All Active Problems (Updated 12/16/23 @ 16:02 by Samir Zhao MD) Flank pain (Acute) Tubular adenoma of colon (Acute) Adenomatous colon polyp (Acute) Hiatal hernia with GERD (Acute) Abnormal brain MRI (Acute) Syncope (Chronic) Headache, chronic migraine without aura (Chronic) Smoker (Acute) History of pseudoseizure (Acute) pT. STATES IT HAS BEEN YEARS SINCE LAST SEIZURE Smoker (Acute) Migraine (Chronic) Bipolar 1 disorder (Chronic) Cardiomyopathy (Acute) GERD (gastroesophageal reflux disease) (Chronic) Arthritis (Acute) Hyperlipidemia (Acute) Obesity (Chronic) IBS (irritable bowel syndrome) (Chronic) Asthma (Chronic) Chronic back pain (Acute) Vitamin B 12 deficiency (Acute) Syncope (Chronic) Pt. states it has been a month since she has passed out. Palpitations (Acute) Medical History Abdominal discomfort Chest pain Pt. states is was related to gas pain Constipation Duodenitis Easy bruising Falls Pt. states r/t syncope Fibromyalgia Foot pain Gastropathy Hip pain Hip pain, bilateral History of fall Hypotension Itchy skin Knee pain, left Lumbar herniated disc Paresthesia Reaction, situational Recurrent boils Rib pain Shoulder pain, right Skin lesion Visual changes Surgical History Arthroscopy, Shoulder left Cholecystectomy Hx of colonoscopy Replacement of total knee joint bilateral S/P foot surgery, left Family History Mother Colon cancer COPD (chronic obstructive pulmonary disease) Stroke Father Heart disease Esophageal cancer Social History Smoking/Tobacco Use Status: Current every day Tobacco Type: cigarettes Smoking packs per day: 1 Smoking cigarettes per day: 20.0 Smoking risk assessment performed?: Yes Alcohol Intake: never Drug use: Never Substance use type: does not use Details: OD on seroquel and zoloft 09/26/22 Household members: spouse Number of Children: 4 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 Current gender identity: female Do you feel safe at home: Yes Do you feel safe in your relationship?: Yes
[2023-12-16 13:06] LABS: Abs Immature Grans 0.06 10^3/uL (0.0-0.06); Absolute Basophil Count 0.05 10^3/uL (0.0-0.2); Absolute Lymphocyte Count 4.34 10^3/uL (1.2-3.4); Absolute Monocyte Count 0.59 10^3/uL (0.1-0.8); Basophils % 0.4 %; HCT 41.5 % (36.0-46.0); HGB 13.8 g/dL (11.2-15.7); Immature Grans % 0.4 %; Lymphocytes % 32.3 %; MCH 30.3 pg (27.0-33.0); MCHC 33.3 % (32.0-36.0); MCV 91 fL (80-95); MPV 9.2 fL (8.0-11.0); Monocytes % 4.4 %; Neutrophils % 61.5 %; Platelet Count 285 10^3/uL (130-400); RBC 4.56 10^6/uL (3.93-5.22); RDW 15.1 % (11.7-14.6); RDW-SD 50.4 fL; WBC 13.43 10^3/uL (4.4-10.8)
[2023-12-16 13:08] LABS: Absolute Eosinophil Count 0.13 10^3/uL (0.0-0.7); Absolute Neutrophil Count 8.26 10^3/uL (1.2-6.7)
[2023-12-16] MEDS: Normal Saline 1,000 ML 1000 ML IV (13:10)
[2023-12-16] MEDS: Ketorolac 15 MG/ML VIAL IVP (13:10)
[2023-12-16] MEDS: Ondansetron 4 MG/2 ML VIAL IVP (13:10)
[2023-12-16 13:20] LABS: ALT 26 U/L (14-59); AST 14 U/L (15-37); Albumin 3.9 g/dL (3.4-5.0); Alkaline Phosphatase 73 U/L (46-116); BUN 13 mg/dL (7-18); Bilirubin, Total 0.2 mg/dL (0.2-1.0); CREATININE 1.1 mg/dL (0.55-1.02); Chloride 107 mmol/L (98-107); Estimated GFR 59.71 (mL/min/1.73m2); Glucose 94 mg/dL (74-106); Lipase 52 U/L (16-77); Sodium 144 mmol/L (136-145); Total Protein 7.4 g/dL (6.4-8.2)
[2023-12-16 13:29] LABS: Bilirubin Negative (Negative); Blood Negative (Negative); Clarity Clear (Clear); Glucose Negative (Negative); Ketones Negative (Negative); Leukocyte Esterase Negative (Negative); Nitrite Negative (Negative); Specific Gravity 1.015 (1.005-1.025); Urobilinogen 0.2 mg/dL (Up to 0.2)
[2023-12-16] MEDS: Omnipaque 350 MG/ML 100 ML BTL IJ (14:42)
[2023-12-16] MEDS: Normal Saline - Diluent 50 ML VIAL IJ (14:44)
== END 2023-12-16 16:18 | disposition home or self-care (01) ==
PROVIDERS: Emergency Provider Emergency Medicine; PCP Family Medicine
DX: R10.32 Left lower quadrant pain (principal)
CPT/HCPCS: 80053; 81025; 83690; 96361; 96374; 96375; 99285; 74177; 81003; 85025; 99283; J1885; J2405; J3490

== ENCOUNTER 2024-05-29 13:58 | Outpatient (CLI) | payer MEDICARE, MEDICAID, SELFPAY ==
--- NOTE | 2024-05-29 13:45 | RT.EKG_ITS ---
APPROVED REPORT Exam: Resting ECG Reason for Exam: baseline Patient Location: O HR:80 bpm ECG Measurements Heart Rate 80 AXIS TN 172 P 50 QRSd 109 QRS 25 QT 367 T -30 QTc 424 Conclusion Sinus rhythm...normal P axis, V-rate 50- 99 Low voltage, precordial leads...precordial leads <1.0mV
== END 2024-05-29 13:59 | disposition home or self-care (01) ==
PROVIDERS: PCP Family Medicine; Referring Provider Family Medicine; Visit Provider Internal Medicine Cardiovascular Disease
DX: R00.2 Palpitations
CPT/HCPCS: 93010

== ENCOUNTER → 2024-05-29 13:58 | Outpatient (BNVA) | payer MEDICARE, MEDICAID, SELFPAY | PROVIDERS: PCP Family Medicine; Referring Provider Family Medicine; Visit Provider Internal Medicine Cardiovascular Disease | DX: R00.2 Palpitations (principal); R07.89 Other chest pain | CPT/HCPCS: 93005; 99204 ==

== ENCOUNTER 2024-06-05 09:55 | Outpatient (CLI) | payer MEDICARE, MEDICAID, SELFPAY | END 2024-06-05 09:56 | disposition home or self-care (01) | PROVIDERS: PCP Family Medicine; Visit Provider Internal Medicine Cardiovascular Disease | DX: R00.2 Palpitations (principal); R07.89 Other chest pain | CPT/HCPCS: 93270 ==

== ENCOUNTER 2024-06-26 07:08 | Outpatient (CLI) | payer MEDICARE, MEDICAID, SELFPAY ==
--- NOTE | 2024-06-26 08:11 | W.CARDEVENT ---
Date of service: 06/26/24 Time of Service: 08:12 Cardiac Event Recorder Referring Provider:: Debo Bajwa Indications:: Palpitations Cardiac Event Note: This is a cardiac event monitor. Patient was monitored for 12 days and 10 hours Rhythm throughout was sinus . Average rate overall was 72. Minimum was 57, maximum 108. There were no significant Ventricular or supraventricular dysrhythmias, no atrial fibrillation, no high-grade AV block, no pauses greater than 3 seconds Reported symptoms were associated with sinus rhythm
== END 2024-06-26 07:09 | disposition home or self-care (01) ==
LOC: CARDOPNVT 07:08
PROVIDERS: PCP Family Medicine; Visit Provider Internal Medicine Cardiovascular Disease
DX: R00.2 Palpitations (principal)
CPT/HCPCS: 93272

== ENCOUNTER 2024-09-04 14:45 | Outpatient (REF) | payer MEDICARE, MEDICAID, SELFPAY ==
[2024-09-04 15:51] LABS: Anion Gap 7.6 mmol/L (3-11); BUN 21 mg/dL (7-18); CO2 24.4 mmol/L (21.0-32.0); CREATININE 1.1 mg/dL (0.55-1.02); Chloride 107 mmol/L (98-107); Estimated GFR 59.34 (mL/min/1.73m2); Glucose 92 mg/dL (74-106); Potassium 4.7 mmol/L (3.5-5.1); Sodium 139 mmol/L (136-145)
[2024-09-04 16:30] LABS: Hemoglobin A1C 5.4 % (<5.7)
== END 2024-09-04 14:46 | disposition home or self-care (01) ==
LOC: NCHCN 14:45
PROVIDERS: PCP Family Medicine; Visit Provider Family Medicine
DX: H53.9 Unspecified visual disturbance (principal); N28.9 Disorder of kidney and ureter, unspecified
CPT/HCPCS: 80048; 83036

== ENCOUNTER 2024-10-08 13:01 | Outpatient (CLI) | payer MEDICARE, MEDICAID, SELFPAY ==
[2024-10-08] MEDS: Breeza Beverage 473 ML BTL PO ×2 (12:24→12:25)
[2024-10-08] MEDS: Omnipaque 350 MG/ML 50 ML BTL PO (12:24)
[2024-10-08] MEDS: Omnipaque 350 MG/ML 100 ML BTL IJ (14:05)
[2024-10-08] MEDS: Normal Saline - Diluent 50 ML VIAL IJ (14:07)
--- NOTE | 2024-10-08 14:07 | DI.CT_ITS ---
Exam(s) CT ABDOMEN PELVIS W EXAM: CT ABDOMEN PELVIS W CLINICAL HISTORY: RLQ PAIN R10.31 TENDERNESS =+MCBURNEYS, ? APPENDICITIS. TECHNIQUE: Imaging Protocol: Axial computed tomography images with coronal and sagittal reformatted images were created and reviewed CONTRAST MATERIAL: Intravenous: Omnipaque 350 Contrast volume:100 ml Oral: yes COMPARISON: CT CT ABDOMEN PELVIS W from 12/16/2023 FINDINGS: ABDOMEN and PELVIS: Lung Bases: No acute findings. Liver: Normal density. No suspicious mass. Gallbladder and biliary tract: Cholecystectomy. No biliary dilation. Pancreas: Normal density. No abnormal calcifications or inflammatory process. No evidence of mass. Spleen: Normal. Kidneys: Normal size, contour and axis. Tiny nonobstructing stone upper pole right kidney. No obstr uctive uropathy. No suspicious masses seen. Adrenal glands: No masses seen. Vasculature: Abdominal aorta non-dilated. Atherosclerotic calcification. Soft tissues: Unremarkable. Bladder: No gross wall thickening. No calculi.No focal mass. Bowel: No obstruction. No bowel wall thickening. Appendix normal. Normal quantity of stool. Peritoneal cavity: No ascites. No focal collection. No mesenteric inflammatory response. No free air . Bones: Unremarkable for age. Reproductive organs: Unremarkable. Lymph nodes: No pathologically enlarged lymph nodes. IMPRESSION:: No acute abnormality in the abdomen or pelvis. Normal appendix. RADIATION DOSE DELIVERED: 1,228.59mGy.cm Total DLP DATA REPOSITORY: All CT scans at this facility are submitted to the National Radiology Data Registry (NRDR) Dose Index Registry (DIR) with the [employer] (ACR). RADIATION OPTIMIZATION: All CT scans at this facility use at least one of these dose optimization te chniques: automated exposure control; mA and/or kV adjustment per patient size (includes targeted exa ms where dose is matched to clinical indication); or iterative reconstruction.
== END 2024-10-08 13:21 ==
LOC: DI 13:05
PROVIDERS: PCP Family Medicine; Visit Provider Family Medicine
DX: R10.31 Right lower quadrant pain (principal)
CPT/HCPCS: 74177; J3490; Q9967

== ENCOUNTER → 2024-11-16 13:22 | Outpatient (BNVA) | payer MEDICARE, MEDICAID, SELFPAY | PROVIDERS: PCP Family Medicine; Referring Provider Family Medicine; Visit Provider Student in an Organized Health Care Education/Training Program | DX: R10.31 Right lower quadrant pain (principal) | CPT/HCPCS: 99214 ==

== ENCOUNTER 2025-01-01 11:01 | Day surgery (SDC) | payer MEDICARE, MEDICAID, SELFPAY ==
--- NOTE | 2024-12-31 19:31 | W.PREOPHP ---
Assessment and Plan Assessment and plan (1) Posterior subcapsular age-related cataract, right eye: Status: Acute Assessment and plan: Assessment: Visually significant cataract of the right eye. Plan: Cataract extraction with lens implantation of the right eye, followed by the left eye. (2) Nuclear age-related cataract, right eye: Status: Acute Assessment and plan: Assessment: Visually significant cataract of the right eye. Plan: Cataract extraction with lens implantation of the right eye, followed by the left eye. (3) Posterior subcapsular age-related cataract of left eye: Status: Acute Assessment and plan: Assessment: Visually significant cataract of the left eye. Plan: Cataract extraction with lens implantation of the right eye, followed by the left eye (4) Nuclear age-related cataract, left eye: Status: Acute Assessment and plan: Assessment: Visually significant cataract of the left eye. Plan: Cataract extraction with lens implantation of the right eye, followed by the left eye. History of Present Illness History of Present Illness Chief Complaint: Progressive decreased vision both eyes Narrative: The patient is a 53-year-old lady who presented with complaints of progressive decreased vision in both eyes at both distance and near. She notes difficulty with glare while driving at night, has difficulty seeing lines on the road and is blind from oncoming headlights. She has stopped driving due to her blurred vision. Review of Systems All systems reviewed & are unremarkable except as noted in HPI and below PFSH All Active Problems Posterior subcapsular age-related cataract, right eye (Acute) Nuclear age-related cataract, right eye (Acute) Posterior subcapsular age-related cataract of left eye (Acute) Nuclear age-related cataract, left eye (Acute) Bilateral cataracts (Acute) Renal insufficiency (Chronic) Right lower quadrant pain (Acute) Tubular adenoma of colon (Acute) Adenomatous colon polyp (Acute) Hiatal hernia with GERD (Acute) Abnormal brain MRI (Acute) Syncope (Chronic) Headache, chronic migraine without aura (Chronic) History of pseudoseizure (Acute) pT. STATES IT HAS BEEN YEARS SINCE LAST SEIZURE Smoker (Acute) Migraine (Chronic) Bipolar 1 disorder (Chronic) GERD (gastroesophageal reflux disease) (Chronic) Arthritis (Acute) Hyperlipidemia (Acute) Obesity (Chronic) IBS (irritable bowel syndrome) (Chronic) Asthma (Chronic) Chronic back pain (Acute) Vitamin B 12 deficiency (Acute) Syncope (Chronic) Pt. states it has been a month since she has passed out. Palpitations (Acute) Medical History Sleep disorder Major depression, single episode Restless legs Orthostatic hypotension Dyspnea Pericardial effusion Non-toxic uninodular goiter Hip pain History of fall Abdominal discomfort Easy bruising Fibromyalgia Lumbar herniated disc Paresthesia Chest pain Pt. states is was related to gas pain Duodenitis Gastropathy Constipation Recurrent boils Reaction, situational Shoulder pain, right Skin lesion Visual changes Rib pain Foot pain Hip pain, bilateral Falls Pt. states r/t syncope Hypotension Itchy skin Knee pain, left Surgical History Hx of colonoscopy S/P foot surgery, left Replacement of total knee joint bilateral Cholecystectomy Arthroscopy, Shoulder left Family History Mother Colon cancer COPD (chronic obstructive pulmonary disease) Stroke Father Heart disease Esophageal cancer Social History Smoking/Tobacco Use Status: Current every day Tobacco Type: cigarettes Smoking packs per day: 1 Smoking cigarettes per day: 20.0 Smoking risk assessment performed?: Yes Alcohol Intake: never Drug use: Never Substance use type: does not use Household members: spouse Housing: apartment Number of Children: 4 current occupation: Previous [employer]. Now disabled. Current gender identity: female Do you feel safe at home: Yes Do you feel safe in your relationship?: Yes Meds Allergies and Home Medications Allergies Allergy/AdvReac Type Severity Reaction Status Date / Time ezetimibe (From Vytorin) Allergy Severe Other (See Verified 01/01/25 12:09 Comment) simvastatin (From Vytorin) Allergy Severe Other (See Verified 01/01/25 12:09 Comment) Penicillins Allergy Intermediate Hives Verified 01/01/25 12:09 adhesive tape Allergy Mild Skin Rash Verified 01/01/25 12:09 dexlansoprazole (From AdvReac Severe Other (See Verified 01/01/25 12:09 Dexilant) Comment) duloxetine HCl (From AdvReac Severe Psychosis Verified 01/01/25 12:09 Cymbalta) varenicline tartrate (From AdvReac Severe Psychosis Verified 01/01/25 12:09 Chantix) Home Medications ?Medication ?Instructions ?Recorded ?Confirmed ?Type albuterol sulfate 90 mcg/actuation 2 puff inhalation Q4H PRN 12/19/15 01/01/25 History aerosol inhaler (ProAir HFA) gabapentin 300 mg capsule 900 mg PO HS 12/19/15 01/01/25 History quetiapine 200 mg tablet (Seroquel) 400 mg PO HS 12/19/15 01/01/25 History sertraline 100 mg tablet (Zoloft) 300 mg PO HS 12/19/15 01/01/25 History topiramate 200 mg tablet (Topamax) 200 mg PO HS 12/19/15 01/01/25 History atorvastatin 10 mg tablet (Lipitor) 10 mg PO DAILY 09/17/18 01/01/25 History cyclobenzaprine 10 mg tablet 10 mg PO BID PRN 09/17/18 01/01/25 History ezetimibe 10 mg tablet (Zetia) 10 mg PO DAILY 09/17/18 01/01/25 History hydrocodone 5 mg-acetaminophen 325 1 tab PO TID PRN 09/17/18 01/01/25 History mg tablet nitroglycerin 0.4 mg sublingual 0.4 mg sublingual Q5-15M PRN 09/17/18 01/01/25 History tablet (Nitrostat) quetiapine 50 mg tablet (Seroquel) 50 mg PO BID PRN 09/17/18 12/30/24 History acetaminophen 325 mg capsule 325 mg PO Q6H PRN 11/05/18 01/01/25 History (Tylenol) bupropion HCl 150 mg tablet,12 hr 150 mg PO BID 05/20/20 01/01/25 History sustained-release (Wellbutrin SR) lorazepam 0.5 mg tablet (Ativan) 0.5 mg PO DAILY PRN 05/20/20 01/01/25 History famotidine 20 mg tablet 20 mg PO BID #0 tabs 06/09/20 01/01/25 Rx sucralfate 1 gram tablet (Carafate) 1 g PO QACHS #120 tabs 06/09/20 01/01/25 Rx cyanocobalamin (vitamin B-12) 1,000 mcg IM Q28D 09/26/22 01/01/25 History 1,000 mcg/mL injection solution docusate sodium 100 mg capsule 100 - 200 mg PO DAILY 09/26/22 01/01/25 History pantoprazole 40 mg tablet,delayed 40 mg PO HS 12/30/24 01/01/25 History release Exam Eyes Other: Most recent ocular examination is significant for corrected visual acuity of 20/200 OD, 2080 OS. Extraocular Gerber is normal. Intraocular pressure is 22 OD, 21 OS. Slit-lamp examination is significant for mild nuclear cataract in the right eye with moderate posterior subcapsular cataract. In the left eye there is a trace nuclear cataract with moderate posterior subcapsular cataract. Funduscopic examination shows disc cupping of 0.6 OU. The vessels, macula, peripheral retina and vitreous are normal OU. Resp Auscultation: clear to auscultation bilaterally Cardio Rate: regular rate Rhythm: regular rhythm
[2025-01-01 12:02] VITALS: BP 120/74; PULSE 73; RESP 18; TEMP 36.2; O2SAT 97
[2025-01-01] MEDS: Tropicam./Phenyleph. (1/2.5%) 5 ML BTL OD ×3 (12:06→12:17)
--- NOTE | 2025-01-01 12:38 | W.ANESPRE ---
General Info Date of Service Date Performed: 01/01/25 Height: 5 ft 5 in Weight: 116.6 kg Body Mass Index (BMI): 42.7 Surgical Procedure: Operation Date: 01/01/25 13:40 Proposed Procedure Side Surgeon p Cataract Extraction with IOL Implant Right Samir Tellez MD Meds Allergies and Home Medications Allergies Allergy/AdvReac Type Severity Reaction Status Date / Time ezetimibe (From Vytorin) Allergy Severe Other (See Verified 01/01/25 12:09 Comment) simvastatin (From Vytorin) Allergy Severe Other (See Verified 01/01/25 12:09 Comment) Penicillins Allergy Intermediate Hives Verified 01/01/25 12:09 adhesive tape Allergy Mild Skin Rash Verified 01/01/25 12:09 dexlansoprazole (From AdvReac Severe Other (See Verified 01/01/25 12:09 Dexilant) Comment) duloxetine HCl (From AdvReac Severe Psychosis Verified 01/01/25 12:09 Cymbalta) varenicline tartrate (From AdvReac Severe Psychosis Verified 01/01/25 12:09 Chantix) Home Medication ?Medication ?Instructions ?Recorded albuterol sulfate 90 mcg/actuation 2 puff inhalation Q4H PRN 12/19/15 aerosol inhaler (ProAir HFA) gabapentin 300 mg capsule 900 mg PO HS 12/19/15 quetiapine 200 mg tablet (Seroquel) 400 mg PO HS 12/19/15 sertraline 100 mg tablet (Zoloft) 300 mg PO HS 12/19/15 topiramate 200 mg tablet (Topamax) 200 mg PO HS 12/19/15 atorvastatin 10 mg tablet (Lipitor) 10 mg PO DAILY 09/17/18 cyclobenzaprine 10 mg tablet 10 mg PO BID PRN 09/17/18 ezetimibe 10 mg tablet (Zetia) 10 mg PO DAILY 09/17/18 hydrocodone 5 mg-acetaminophen 325 1 tab PO TID PRN 09/17/18 mg tablet nitroglycerin 0.4 mg sublingual 0.4 mg sublingual Q5-15M PRN 09/17/18 tablet (Nitrostat) quetiapine 50 mg tablet (Seroquel) 50 mg PO BID PRN 09/17/18 acetaminophen 325 mg capsule 325 mg PO Q6H PRN 11/05/18 (Tylenol) bupropion HCl 150 mg tablet,12 hr 150 mg PO BID 05/20/20 sustained-release (Wellbutrin SR) lorazepam 0.5 mg tablet (Ativan) 0.5 mg PO DAILY PRN 05/20/20 famotidine 20 mg tablet 20 mg PO BID #0 tabs 06/09/20 sucralfate 1 gram tablet (Carafate) 1 g PO QACHS #120 tabs 06/09/20 cyanocobalamin (vitamin B-12) 1,000 mcg IM Q28D 09/26/22 1,000 mcg/mL injection solution docusate sodium 100 mg capsule 100 - 200 mg PO DAILY 09/26/22 pantoprazole 40 mg tablet,delayed 40 mg PO HS 12/30/24 release Current Visit Medications: Current Medications Generic Name Dose Route Start Last Admin Trade Name Freq PRN Reason Stop Dose Admin Acetaminophen 1,000 mg 01/01/25 06:20 Acetaminophen 500 Mg Tab PO 01/31/25 06:19 Q4H PRN PRN Balanced Salt Solution 500 ml 01/01/25 06:20 Balanced Salt Soln.-Plus 500 Ml Bag OP 01/31/25 06:19 DIRECTED PENDING SALE TO [facility] Miscellaneous Medication 0 ml 01/01/25 06:20 Prednisolone 1%, Moxifloxacin 0.5%, Bromfenac 0.09% 5.6ml Btl OD 01/31/25 06:19 DIRECTED PENDING SALE TO [facility] Miscellaneous Medication 0 ml 01/01/25 06:20 01/01/25 12:17 Tropicam./Phenyleph. (1/2.5%) 5 Ml Btl OD 01/31/25 06:19 1 drp DIRECTED [facility] Administration Tetracaine HCl 0 ml 01/01/25 06:20 Tetracaine 0.5% 4 Ml Btl OD 01/31/25 06:19 DIRECTED [facility] PFSH Active Problems Active Problems: Problem Status Onset Code Posterior subcapsular age-related cataract, right eye Acute H25.041 Nuclear age-related cataract, right eye Acute H25.11 Posterior subcapsular age-related cataract of left eye Acute H25.042 Nuclear age-related cataract, left eye Acute H25.12 Bilateral cataracts Acute H26.9 Renal insufficiency Chronic N28.9 Right lower quadrant pain Acute R10.31 Tubular adenoma of colon Acute D12.6 Adenomatous colon polyp Acute D12.6 Hiatal hernia with GERD Acute K21.9, K44.9 Abnormal brain MRI Acute R90.89 Syncope Chronic R55 Headache, chronic migraine without aura Chronic G43.709 History of pseudoseizure Acute Z86.69 Smoker Acute F17.200 Migraine Chronic G43.909 Bipolar 1 disorder Chronic F31.9 GERD (gastroesophageal reflux disease) Chronic K21.9 Arthritis Acute M19.90 Hyperlipidemia Acute E78.5 Obesity Chronic E66.9 IBS (irritable bowel syndrome) Chronic K58.9 Asthma Chronic J45.909 Chronic back pain Acute M54.9, G89.29 Vitamin B 12 deficiency Acute E53.8 Syncope Chronic R55 Palpitations Acute R00.2 Medical History Medical History Sleep disorder Major depression, single episode Restless legs Orthostatic hypotension Dyspnea Pericardial effusion Non-toxic uninodular goiter Hip pain History of fall Abdominal discomfort Easy bruising Fibromyalgia Lumbar herniated disc Paresthesia Chest pain Pt. states is was related to gas pain Duodenitis Gastropathy Constipation Recurrent boils Reaction, situational Shoulder pain, right Skin lesion Visual changes Rib pain Foot pain Hip pain, bilateral Falls Pt. states r/t syncope Hypotension Itchy skin Knee pain, left Surgical History Surgical History Hx of colonoscopy S/P foot surgery, left Replacement of total knee joint bilateral Cholecystectomy Arthroscopy, Shoulder left Tobacco Smoking/Tobacco Use Status: Current every day Tobacco Type: cigarettes Smoking packs per day: 1 Passive smoking exposure: Yes Alcohol Alcohol Intake: never Substance Use Substance use: Never Substance use type: does not use Vital Signs and Lab Results Vital Signs Most Recent Vital Signs in EMR: Most Recent Vital Signs Temp Pulse Resp BP Pulse Ox 36.2 C L 73 18 120/74 97 01/01/25 12:02 01/01/25 12:02 01/01/25 12:02 01/01/25 12:02 01/01/25 12:02 Lab Results Blood Type / Crossmatch: No Data to Display Complete Blood Count: No Data to Display Complete Metabolic Panel: No Data to Display Liver Function Panel: No Data to Display Coagulation Panel: No Data to Display Cardiac Panel: No Data to Display Arterial Blood Gas: No Data to Display Venous Blood Gas: No Data to Display Pancreas Panel: No Data to Display Thyroid Panel: No Data to Display Infectious Disease: No Data to Display Blood Cultures: No Data to Display Toxicology Panel: No Data to Display Imaging and Studies Imaging and Studies Study information below may be from another EMR and interpreted by another provider. Please see original notes in EMR for more complete details. EKG Summary: 05/29/24: Exam: Resting ECG Reason for Exam: baseline Patient Location: O HR:80 bpm ECG Measurements Heart Rate 80 AXIS NH 172 P 50 QRSd 109 QRS 25 QT 367 T-30 QTc 424 Conclusion Sinus rhythm...normal P axis, V-rate 50- 99 Low voltage, precordial leads...precordial leads <1.0mV Stress Test Summary: 03/28/23: Stress ECG Conclusion 1. Resting electrocardiogram is within normal limits 2. Patient underwent testing using a combination of low-level exercise and pharmacologic stress with regadenoson 3. Peak heart rate achieved was 53% of predicted for age 4. The electrocardiographic portion of the test was nondiagnostic 5. See MPI report Stress Test Summary [id number] 1 min post Lexiscan [id number] chest pressure, mod dyspnea 3 min post Lexiscan [id number] chest pressure, mod dyspnea 6 min post Lexiscan [id number] Symptoms resolved. MPI Conclusion There is no myocardial ischemia or evidence of prior infarction. There is breast attenuation artifact EF is 51% with normal wall motion Echocardiogram Summary: 05/10/23: Conclusion Normal left ventricular wall thickness and chamber size. Ejection fraction is 55%. Wall motion is normal Normal right ventricular size and systolic function Both atria are normal in size There is no structural or hemodynamically significant valvular disease Estimated right ventricular systolic pressure is 21 mmHg There is no significant pericardial effusion Anesthesia Assessment and Plan Anesthesia History Personal History: No History of Anesthesia Complications Family History: No Family History of Anesthesia Complications Exercise Tolerance Exercise Tolerance: Metabolic Equivalents>4 Cardiac & Pulmonary Exam Cardiac Exam: Normal S1/S2 Heart Sounds Pulmonary Exam: Clear Bilateral Breath Sounds Implantable Cardiac Device Does patient have a Pacemaker or an ICD?: No Airway Exam Known Difficult Airway: No Mallampati Class: 2 Mouth Opening: Normal (> 3cm) Thyromental Distance: Greater than 3 cm Neck Range of Motion: Full ROM Neck Circumference: Normal Teeth Condition: Normal Dentition and Removable Dentures/Plates Upper ASA Classification ASA Score: ASA 3 Emergency Case?: No NPO Status NPO Status: NPO Clears >2 hours, Solids >8 hours Anesthesia Plan Resuscitation Status: Full Code Anesthesia Technique: MAC Anesthesia Airway Planned: Natural Airway Monitors Used: Standard Monitors Preoperative Comments:: O2 requirement at night
[2025-01-01 12:40] VITALS: BMI 42.7
[2025-01-01] MEDS: Povidone-Iodine Ophth 30 ML BTL (13:27)
[2025-01-01] MEDS: Tetracaine 0.5% 4 ML BTL OD (13:27)
[2025-01-01] MEDS: Duovisc Viscoelastic System EACH 1 EACH (13:32)
[2025-01-01] MEDS: Lidocaine 1% Pres-Free 5 ML VIAL (13:33)
[2025-01-01] MEDS: Phenylephrine/Lidocaine (15/10) MG/ML 1 ML VIAL (13:33)
[2025-01-01] MEDS: Balanced Salt Soln.-PLUS 500 ML BAG OP (13:34)
[2025-01-01] MEDS: Trypan Blue 0.06% 0.5 ML SYR (13:34)
[2025-01-01] MEDS: Moxifloxacin-PF 1 MG/ML VIAL (13:47)
[2025-01-01] MEDS: Prednisolone 1%, Moxifloxacin 0.5%, Bromfenac 0.09% 5.6ML BTL OD (13:48)
[2025-01-01 13:53] VITALS: BP 101/67; PULSE 69; RESP 14; TEMP 36.1; O2SAT 97
--- NOTE | 2025-01-01 13:55 | ROE_ITS ---
Operative Note Operative Note PRE-OP DIAGNOSIS: Nuclear/posterior subcapsular cataract, right eye POST-OP DIAGNOSIS: same PROCEDURE: Cataract extraction using phacoemulsification with intraocular lens implant, right eye SURGEON: Samir Tellez ANESTHESIA TYPE: Local By Surgeon and MAC Refer to Anesthesia Record ESTIMATED BLOOD LOSS: 0 PATHOLOGY: none sent COMPLICATIONS: None Patient was transported to: same day Patient's condition: stable Implants: Kirill Clareon [id number] Indications: Progressive decreased vision due to cataract, right eye Procedure Description: CATARACT SURGERY OPERATIVE REPORT PREOPERATIVE DIAGNOSIS: Nuclear/posterior subcapsular cataract, right eye POSTOPERATIVE DIAGNOSIS: Same OPERATION: Cataract extraction using phacoemulsification with posterior chamber intraocular lens implant, right eye. IOL: IOL Live Ammunition Inspector/Model: Kirill Clareon [id number] IOL Power: + 23.0 diopters IOL Serial Number: [id number] Optic Diameter: 6.0mm Haptic/Overall Diameter: 13.0mm PHACO INFO: Kirill Ipracomurion Vision System with OZil and Active Fluidics Cumulative Dispersed Energy (CDE): 8.90 seconds SURGEON: Samir Tellez MD, SHAKILA ANESTHESIA: Monitored Anesthesia Care (MAC), with local sub-tenon's anesthetic infiltration COMPLICATIONS: None SPECIMENS: None INDICATIONS FOR PROCEDURE: The patient is a 54-year-old lady with history of diminished visual acuity in her right eye secondary to the development of dense nuclear/posterior subcapsular cataract. She is significantly symptomatic that she desires cataract surgery in attempt to improve and maximize her vision. The option of cataract surgery was offered to the patient and she wished to proceed. See office notes for detailed information. PROCEDURE: The correct surgical eye was identified and marked as the right eye and the pupil was dilated in the preoperative area using mydriatics and cyclopl egics. The dilated pupil size was 7.0 mm. Oral sedation was administered in the form of an Imprimis MKO Melt (midazolam 3mg/ketamine 25mg/ondansetron 2mg). The patient was brought to the operating room where cardiopulmonary monitoring was instituted and surgical time-out was performed, confirming the correct operative eye and IOL power. Topical anesthesia was administered and ophthalmic povidone-iodine 5% was instilled into the conjunctival fornices. The sushant-ocular area was prepped with Betadine 10% solution and draped in the usual sterile fashion for intraocular surgery, including an aperture drape. A Tegaderm transparent film dressing was cut in half and used to cover the lashes and lid margins. Care was taken to sequester the lashes and lid margins under the Tegaderm dressing. A lid speculum was placed between the lids of the operative eye and the Kirill LuxOR Revalia operating microscope was maneuvered into position. Janet scissors were then used to make a conjunctival buttonhole approximately 6mm posterior to the limbus in the inferonasal quadrant. Blunt dissection was carried out to expose bare sclera, and a blunt-tipped sub-tenon?s anesthesia cannula was introduced and passed posteriorly along the globe where non- preserved plain lidocaine was injected into posterior sub-Tenon?s space. A sideport knife was used to make a paracentesis port. VisionBlue was injected into the anterior chamber and allowed to sit for 30 seconds. Intraocular phenylephrine/lidocaine was injected into the anterior chamber. The anterior chamber was then filled with viscoelastic. A keratome knife was used to construct a two--plane clear corneal tunnel extending 2.0mm into clear cornea. A flap was raised on the anterior capsule and capsulorhexis forceps were used to complete a continuous curvilinear capsulorhexis of 5.5 mm. Balanced salt solution was then used to perform cortical cleaving hydrodissection and nuclear hydrodelineation until the lens could be freely rotated within the capsular bag. The lens nucleus was then disassembled and removed within the capsular bag and iris plane using phacoemulsification. Residual cortical material was removed using the I/A handpiece. The posterior capsule was carefully polished to remove as much residual lens epithelial cells as safely possible. The capsular bag was then inflated and the anterior chamber deepened with cohesive viscoelastic. The lens implant described above was inserted into the capsular bag using the Kirill Autonome Injector. A Kuglen hook was used to dial the IOL into position. Residual viscoelastic was then removed first from posterior to the IOL, then from the anterior chamber using the I/A handpiece. The lens implant was noted to center nicely within the capsular bag. The incisions were stromally hydrated, and the anterior chamber was reformed using BSS. Then 0.5cc of moxifloxacin 1.0mg/ml were injected into the capsular bag and anterior chamber. The incisions were checked with a Weck spear and found to be secure. Several drops of ophthalmic povidone-iodine 5% were then applied to the eye followed by two drops of combination steroid/NSAID/antibiotic solution. The drapes were removed and a clear plastic protective eye shield was placed over the eye. The patient was then returned to Same Day Surgery in stable condition. Date of Procedure: 01/01/25
--- NOTE | 2025-01-01 13:55 | W.PM.DSUDISC ---
Date of service: 01/01/25 Discharge Plan Disposition Patient Disposition: Home Discharge Details Attending Provider: Samir Tellez Primary Care Provider: Molly Hinson V Home Meds and New Rx's Prescriptions: No Action acetaminophen [Tylenol] 325 mg capsule 325 mg PO Q6H PRN atorvastatin [Lipitor] 10 mg tablet 10 mg PO DAILY nitroglycerin [Nitrostat] 0.4 mg tablet, sublingual 0.4 mg SL Q5-15M PRN ezetimibe [Zetia] 10 mg tablet 10 mg PO DAILY quetiapine [Seroquel] 50 mg tablet 50 mg PO BID PRN cyclobenzaprine 10 mg tablet 10 mg PO BID PRN hydrocodone-acetaminophen 5-325 mg tablet 1 tab PO TID PRN bupropion HCl [Wellbutrin SR] 150 mg tablet sustained-release 12 hr 150 mg PO BID lorazepam [Ativan] 0.5 mg tablet 0.5 mg PO DAILY PRN sertraline [Zoloft] 100 MG tablet 300 mg PO HS quetiapine [Seroquel] 200 MG tablet 400 mg PO HS gabapentin 300 MG capsule 900 mg PO HS topiramate [Topamax] 200 MG tablet 200 mg PO HS albuterol sulfate [ProAir HFA] 200 PUFF HFA aerosol inhaler 2 puff Inhalation Q4H PRN pantoprazole 40 mg tablet,delayed release (DR/EC) 40 mg PO HS Patient Comments: TAKE ONE TABLET BY MOUTH EVERY DAY sucralfate [Carafate] 1 gram tablet 1 g PO QACHS Qty: 120 12RF famotidine 20 mg tablet 20 mg PO BID Qty: 0 0RF cyanocobalamin (vitamin B-12) 1,000 mcg/mL solution 1,000 mcg IM Q28D Patient Comments: INJECT 1000MCG (1ML) INTRAMUSCULARLY EVERY FOUR WEEKS docusate sodium 100 mg capsule 100 - 200 mg PO DAILY Patient Comments: TAKE ONE TO TWO CAPSULES BY MOUTH EVERY DAY Discharge Instructions Stand Alone Forms: [facility] Post-Op CataractKen ([facility]) Discharge Orders Discharge Orders: Discharge Order (Routine); Ordered 01/01/25 Ordered By: Samir Tellez DS: Diagnosis Discharge Diagnosis (1) Posterior subcapsular age-related cataract, right eye: Status: Resolved (2) Nuclear age-related cataract, right eye: Status: Resolved
[2025-01-01 14:18] VITALS: BP 113/71; PULSE 73; RESP 16; TEMP 36.1; O2SAT 98
--- NOTE | 2025-01-01 14:18 | W.ANESPOSTOP ---
Postoperative Evaluation Date, Time and Location Date Performed: 01/01/25 Time Performed: 13:55 Patient Location: Day Surgery Unit Vital Signs Most Recent Imported Vital Signs: Most Recent Vital Signs Temp Pulse Resp BP Pulse Ox 36.1 C L 69 14 101/67 97 01/01/25 13:53 01/01/25 13:53 01/01/25 13:53 01/01/25 13:53 01/01/25 13:53 Pain Score Most Recent Pain Score: Most Recent Pain Score Pain Level 0 01/01/25 13:53 Assessment Mental Status: Awake (Alert & Oriented to Patient Baseline) Airway and Respiratory Function: Patent airway with normal (patient baseline) respiratory exam Cardiovascular Function: Hemodynamically Stable Hydration Status: Adequately Hydrated Nausea & Vomiting: No Nausea or Vomiting Pain: Pt. Denies Any Pain Peripheral Nerve Block: Other (Local by Dr. Tellez)
== END 2025-01-01 14:20 | disposition home or self-care (01) ==
PROVIDERS: PCP Family Medicine; Visit Provider Ophthalmology
PROC: (CPT 66984; principal; 2025-01-01 13:30)
DX: H25.041 Posterior subcapsular polar age-related cataract, right eye (principal); H25.11 Age-related nuclear cataract, right eye; H25.042 Posterior subcapsular polar age-related cataract, left eye; K21.9 Gastro-esophageal reflux disease without esophagitis
CPT/HCPCS: 66984; 00123; V2632; J2003

== ENCOUNTER 2025-01-08 06:04 | Day surgery (SDC) | payer MEDICARE, MEDICAID, SELFPAY ==
[2025-01-08 06:18] VITALS: BP 115/71; PULSE 80; RESP 18; TEMP 37.1; O2SAT 97
[2025-01-08] MEDS: Tropicam./Phenyleph. (1/2.5%) 5 ML BTL OS ×3 (06:23→06:32)
--- NOTE | 2025-01-08 07:19 | W.ANESPRE ---
General Info Date of Service Date Performed: 01/08/25 Height: 5 ft 6 in Weight: 117.4 kg Body Mass Index (BMI): 41.8 Surgical Procedure: Operation Date: 01/08/25 07:40 Proposed Procedure Side Surgeon p Cataract Extraction with IOL Implant Left Samir Tellez MD Meds Allergies and Home Medications Allergies Allergy/AdvReac Type Severity Reaction Status Date / Time ezetimibe (From Vytorin) Allergy Severe Other (See Verified 01/08/25 06:31 Comment) simvastatin (From Vytorin) Allergy Severe Other (See Verified 01/08/25 06:31 Comment) Penicillins Allergy Intermediate Hives Verified 01/08/25 06:31 adhesive tape Allergy Mild Skin Rash Verified 01/08/25 06:31 dexlansoprazole (From AdvReac Severe Other (See Verified 01/08/25 06:31 Dexilant) Comment) duloxetine HCl (From AdvReac Severe Psychosis Verified 01/08/25 06:31 Cymbalta) varenicline tartrate (From AdvReac Severe Psychosis Verified 01/08/25 06:31 Chantix) Home Medication ?Medication ?Instructions ?Recorded albuterol sulfate 90 mcg/actuation 2 puff inhalation Q4H PRN 12/19/15 aerosol inhaler (ProAir HFA) gabapentin 300 mg capsule 900 mg PO HS 12/19/15 quetiapine 200 mg tablet (Seroquel) 400 mg PO HS 12/19/15 sertraline 100 mg tablet (Zoloft) 300 mg PO HS 12/19/15 topiramate 200 mg tablet (Topamax) 200 mg PO HS 12/19/15 atorvastatin 10 mg tablet (Lipitor) 10 mg PO DAILY 09/17/18 cyclobenzaprine 10 mg tablet 10 mg PO BID PRN 09/17/18 ezetimibe 10 mg tablet (Zetia) 10 mg PO DAILY 09/17/18 hydrocodone 5 mg-acetaminophen 325 1 tab PO TID PRN 09/17/18 mg tablet nitroglycerin 0.4 mg sublingual 0.4 mg sublingual Q5-15M PRN 09/17/18 tablet (Nitrostat) quetiapine 50 mg tablet (Seroquel) 50 mg PO BID PRN 09/17/18 acetaminophen 325 mg capsule 325 mg PO Q6H PRN 11/05/18 (Tylenol) bupropion HCl 150 mg tablet,12 hr 150 mg PO BID 05/20/20 sustained-release (Wellbutrin SR) lorazepam 0.5 mg tablet (Ativan) 0.5 mg PO DAILY PRN 05/20/20 famotidine 20 mg tablet 20 mg PO BID #0 tabs 06/09/20 sucralfate 1 gram tablet (Carafate) 1 g PO QACHS #120 tabs 06/09/20 cyanocobalamin (vitamin B-12) 1,000 mcg IM Q28D 09/26/22 1,000 mcg/mL injection solution docusate sodium 100 mg capsule 100 - 200 mg PO DAILY 09/26/22 pantoprazole 40 mg tablet,delayed 40 mg PO HS 12/30/24 release Current Visit Medications: Current Medications Generic Name Dose Route Start Last Admin Trade Name Freq PRN Reason Stop Dose Admin Acetaminophen 1,000 mg 01/08/25 06:00 Acetaminophen 500 Mg Tab PO 02/07/25 05:59 Q4H PRN PRN Balanced Salt Solution 500 ml 01/08/25 06:00 Balanced Salt Soln.-Plus 500 Ml Bag OP 02/07/25 05:59 DIRECTED COUNT INCLUDES THE [facility] Miscellaneous Medication 0 ml 01/08/25 06:00 Prednisolone 1%, Moxifloxacin 0.5%, Bromfenac 0.09% 5.6ml Btl OS 02/07/25 05:59 DIRECTED COUNT INCLUDES THE [facility] Miscellaneous Medication 0 ml 01/08/25 06:00 01/08/25 06:32 Tropicam./Phenyleph. (1/2.5%) 5 Ml Btl OS 02/07/25 05:59 1 drp DIRECTED DORA Administration Tetracaine HCl 0 ml 01/08/25 06:00 Tetracaine 0.5% 4 Ml Btl OS 02/07/25 05:59 DIRECTED DORA PFSH Active Problems Active Problems: Problem Status Onset Code Posterior subcapsular age-related cataract, right eye Resolved H25.041 Nuclear age-related cataract, right eye Resolved H25.11 Posterior subcapsular age-related cataract of left eye Acute H25.042 Nuclear age-related cataract, left eye Acute H25.12 Bilateral cataracts Acute H26.9 Renal insufficiency Chronic N28.9 Right lower quadrant pain Acute R10.31 Tubular adenoma of colon Acute D12.6 Adenomatous colon polyp Acute D12.6 Hiatal hernia with GERD Acute K21.9, K44.9 Abnormal brain MRI Acute R90.89 Syncope Chronic R55 Headache, chronic migraine without aura Chronic G43.709 History of pseudoseizure Acute Z86.69 Smoker Acute F17.200 Migraine Chronic G43.909 Bipolar 1 disorder Chronic F31.9 GERD (gastroesophageal reflux disease) Chronic K21.9 Arthritis Acute M19.90 Hyperlipidemia Acute E78.5 Obesity Chronic E66.9 IBS (irritable bowel syndrome) Chronic K58.9 Asthma Chronic J45.909 Chronic back pain Acute M54.9, G89.29 Vitamin B 12 deficiency Acute E53.8 Syncope Chronic R55 Palpitations Acute R00.2 Medical History Medical History Sleep disorder Major depression, single episode Restless legs Orthostatic hypotension Dyspnea Pericardial effusion Non-toxic uninodular goiter Hip pain History of fall Abdominal discomfort Easy bruising Fibromyalgia Lumbar herniated disc Paresthesia Chest pain Pt. states is was related to gas pain Duodenitis Gastropathy Constipation Recurrent boils Reaction, situational Shoulder pain, right Skin lesion Visual changes Rib pain Foot pain Hip pain, bilateral Falls Pt. states r/t syncope Hypotension Itchy skin Knee pain, left Surgical History Surgical History Hx of colonoscopy S/P foot surgery, left Replacement of total knee joint bilateral Cholecystectomy Arthroscopy, Shoulder left Tobacco Smoking/Tobacco Use Status: Current every day Tobacco Type: cigarettes Smoking packs per day: 1 Passive smoking exposure: Yes Alcohol Alcohol Intake: never Substance Use Substance use: Never Substance use type: does not use Details: denies use today Vital Signs and Lab Results Vital Signs Most Recent Vital Signs in EMR: Most Recent Vital Signs Temp Pulse Resp BP Pulse Ox 37.1 C 80 18 115/71 97 01/08/25 06:18 01/08/25 06:18 01/08/25 06:18 01/08/25 06:18 01/08/25 06:18 Lab Results Blood Type / Crossmatch: No Data to Display Complete Blood Count: No Data to Display Complete Metabolic Panel: No Data to Display Liver Function Panel: No Data to Display Coagulation Panel: No Data to Display Cardiac Panel: No Data to Display Arterial Blood Gas: No Data to Display Venous Blood Gas: No Data to Display Pancreas Panel: No Data to Display Thyroid Panel: No Data to Display Infectious Disease: No Data to Display Blood Cultures: No Data to Display Toxicology Panel: No Data to Display Imaging and Studies Imaging and Studies Study information below may be from another EMR and interpreted by another provider. Please see original notes in EMR for more complete details. EKG Summary: 05/29/24: Exam: Resting ECG Reason for Exam: baseline Patient Location: O HR:80 bpm ECG Measurements Heart Rate 80 AXIS MD 172 P 50 QRSd 109 QRS 25 QT 367 T-30 QTc 424 Conclusion Sinus rhythm...normal P axis, V-rate 50- 99 Low voltage, precordial leads...precordial leads <1.0mV Stress Test Summary: 03/28/23: Stress ECG Conclusion 1. Resting electrocardiogram is within normal limits 2. Patient underwent testing using a combination of low-level exercise and pharmacologic stress with regadenoson 3. Peak heart rate achieved was 53% of predicted for age 4. The electrocardiographic portion of the test was nondiagnostic 5. See MPI report Stress Test Summary [id number] 1 min post Lexiscan [id number]/10 chest pressure, mod dyspnea 3 min post Lexiscan [id number]/602/10 chest pressure, mod dyspnea 6 min post Lexiscan [id number] Symptoms resolved. MPI Conclusion There is no myocardial ischemia or evidence of prior infarction. There is breast attenuation artifact EF is 51% with normal wall motion Echocardiogram Summary: 05/10/23: Conclusion Normal left ventricular wall thickness and chamber size. Ejection fraction is 55%. Wall motion is normal Normal right ventricular size and systolic function Both atria are normal in size There is no structural or hemodynamically significant valvular disease Estimated right ventricular systolic pressure is 21 mmHg There is no significant pericardial effusion Pulmonary Function Summary: 2015: IMPRESSION: Isolated mild reduction in diffusion capacity. However, this is normal when corrected to alveolar volume. Anesthesia Assessment and Plan Anesthesia History Personal History: No History of Anesthesia Complications Family History: No Family History of Anesthesia Complications Exercise Tolerance Exercise Tolerance: Metabolic Equivalents>4 Pertinent Negatives Pertinent Negatives: No Symptoms of GERD Cardiac & Pulmonary Exam Cardiac Exam: Normal S1/S2 Heart Sounds Pulmonary Exam: Clear Bilateral Breath Sounds Implantable Cardiac Device Does patient have a Pacemaker or an ICD?: No Airway Exam Known Difficult Airway: No Mallampati Class: 2 Mouth Opening: Normal (> 3cm) Thyromental Distance: Greater than 3 cm Neck Range of Motion: Full ROM Neck Circumference: Normal Teeth Condition: Normal Dentition and Removable Dentures/Plates Upper ASA Classification ASA Score: ASA 3 Emergency Case?: No NPO Status NPO Status: NPO Clears >2 hours, Solids >8 hours Anesthesia Plan Resuscitation Status: Full Code Anesthesia Technique: MAC Anesthesia Airway Planned: Natural Airway Monitors Used: Standard Monitors
[2025-01-08 07:20] VITALS: BMI 41.8
[2025-01-08] MEDS: Tetracaine 0.5% 4 ML BTL OS (07:41)
[2025-01-08] MEDS: Duovisc Viscoelastic System EACH 1 EACH (07:41)
[2025-01-08] MEDS: Phenylephrine/Lidocaine (15/10) MG/ML 1 ML VIAL (07:42)
[2025-01-08] MEDS: Lidocaine 1% Pres-Free 5 ML VIAL (07:45)
[2025-01-08] MEDS: Balanced Salt Soln.-PLUS 500 ML BAG OP (07:46)
[2025-01-08] MEDS: Povidone-Iodine Ophth 30 ML BTL (07:48)
[2025-01-08] MEDS: Trypan Blue 0.06% 0.5 ML SYR (07:48)
[2025-01-08] MEDS: Prednisolone 1%, Moxifloxacin 0.5%, Bromfenac 0.09% 5.6ML BTL OS (07:48)
[2025-01-08] MEDS: Moxifloxacin-PF 1 MG/ML VIAL (07:49)
[2025-01-08 08:10] VITALS: BP 104/64; PULSE 73; RESP 18; TEMP 36.4; O2SAT 99
--- NOTE | 2025-01-08 08:11 | ROE_ITS ---
Operative Note Operative Note PRE-OP DIAGNOSIS: Nuclear/posterior subcapsular cataract, left eye POST-OP DIAGNOSIS: same PROCEDURE: Cataract extraction using phacoemulsification with intraocular lens implant, left eye SURGEON: Samir Tellez ANESTHESIA TYPE: Local By Surgeon and MAC Refer to Anesthesia Record PATHOLOGY: none sent COMPLICATIONS: None Patient was transported to: same day Patient's condition: stable Implants: Kirill Clareon [id number] Indications: Progressive decreased vision due to cataract, left eye Procedure Description: CATARACT SURGERY OPERATIVE REPORT PREOPERATIVE DIAGNOSIS: Nuclear/posterior subcapsular cataract, left eye POSTOPERATIVE DIAGNOSIS: Same OPERATION: Cataract extraction using phacoemulsification with posterior chamber intraocular lens implant, left eye. IOL: IOL Printed Circuit Board Assembler/Model: Kirill Clareon [id number] IOL Power: + 23.0 diopters IOL Serial Number: [id number] Optic Diameter: 6.0mm Haptic/Overall Diameter: 13.0mm PHACO INFO: Kirill Centurion Vision System with OZil and Active Fluidics Cumulative Dispersed Energy (CDE): 11.82 seconds SURGEON: Samir Tellez MD, SHAKILA ANESTHESIA: Monitored Anesthesia Care (MAC), with local sub-tenon's anesthetic infiltration COMPLICATIONS: None SPECIMENS: None INDICATIONS FOR PROCEDURE: The patient is a 54-year-old lady with history of diminished visual acuity in both eyes secondary to the development of dense bilateral nuclear/posterior subcapsular cataract. She had cataract in the left eye and is doing well postoperatively. She now presents for cataract surgery in the left eye. See office notes for detailed information. PROCEDURE: The correct surgical eye was identified and marked as the left eye and the pupil was dilated in the preoperative area using mydriatics and cycloplegics. The dilated pupil size was 7.0 mm. Oral sedation was administered in the form of an Imprimis MKO Melt (midazolam 3mg/ketamine 25mg/ondansetron 2mg). The patient was brought to the operating room where cardiopulmonary monitoring was instituted and surgical time-out was performed, confirming the correct operative eye and IOL power. Topical anesthesia was administered and ophthalmic povidone-iodine 5% was instilled into the conjunctival fornices. The sushant-ocular area was prepped with Betadine 10% solution and draped in the usual sterile fashion for intraocular surgery, including an aperture drape. A Tegaderm transparent film dressing was cut in half and used to cover the lashes and lid margins. Care was taken to sequester the lashes and lid margins under the Tegaderm dressing. A lid speculum was placed between the lids of the operative eye and the Kirill LuxOR Revalia operating microscope was maneuvered into position. Janet scissors were then used to make a conjunctival buttonhole approximately 6mm posterior to the limbus in the inferonasal quadrant. Blunt dissection was carried out to expose bare sclera, and a blunt-tipped sub-tenon?s anesthesia cannula was introduced and passed posteriorly along the globe where non- preserved plain lidocaine was injected into posterior sub-Tenon?s space. A sideport knife was used to make a paracentesis port. Intraocular phenylephrine/lidocaine was injected into the anterior chamber. The anterior chamber was then filled with viscoelastic. A keratome knife was used construct a two-plane clear corneal tunnel extending 2.0mm into clear cornea. A flap was raised on the anterior capsule and capsulorhexis forceps were used to complete a continuous curvilinear capsulorhexis of 5.5 mm. Balanced salt solution was then used to perform cortical cleaving hydrodissection and nuclear hydrodelineation until the lens could be freely rot ated within the capsular bag. The lens nucleus was then disassembled and removed within the capsular bag and iris plane using phacoemulsification. Residual cortical material was removed using the irrigation/aspiration handpiece. The posterior capsule was carefully polished to remove as much residual lens epithelial cells as safely possible. There were some dense posterior subcapsular plaque in multiple areas on the posterior capsule that could not be safely removed despite extensive polishing. The capsular bag was then inflated and the anterior chamber deepened with viscoelastic. The lens implant described above was inserted into the capsular bag using the Kirill Autonome Injector. A Kuglen hook was used to dial the IOL into position. Residual viscoelastic was then removed first from posterior to the IOL, then from the anterior chamber using the I/A handpiece. The lens implant was noted to center nicely within the capsular bag. The incisions were stromally hydrated, and the anterior chamber was reformed using BSS. Then 0.5cc of moxifloxacin 1.0mg/ml were injected into the capsular bag and anterior chamber. The incisions were checked with a Weck spear and found to be secure. Several drops of ophthalmic povidone-iodine 5% were then applied to the eye followed by two drops of combination steroid/NSAID/antibiotic solution. The drapes were removed and a clear plastic protective eye shield was placed over the eye. The patient was then returned to Same Day Surgery in stable condition. Date of Procedure: 01/08/25
--- NOTE | 2025-01-08 08:11 | W.PM.DSUDISC ---
Date of service: 01/08/25 Discharge Plan Disposition Patient Disposition: Home Discharge Details Attending Provider: Samir Tellez Primary Care Provider: Molly Hinson V Home Meds and New Rx's Prescriptions: No Action acetaminophen [Tylenol] 325 mg capsule 325 mg PO Q6H PRN atorvastatin [Lipitor] 10 mg tablet 10 mg PO DAILY nitroglycerin [Nitrostat] 0.4 mg tablet, sublingual 0.4 mg SL Q5-15M PRN ezetimibe [Zetia] 10 mg tablet 10 mg PO DAILY quetiapine [Seroquel] 50 mg tablet 50 mg PO BID PRN cyclobenzaprine 10 mg tablet 10 mg PO BID PRN hydrocodone-acetaminophen 5-325 mg tablet 1 tab PO TID PRN bupropion HCl [Wellbutrin SR] 150 mg tablet sustained-release 12 hr 150 mg PO BID lorazepam [Ativan] 0.5 mg tablet 0.5 mg PO DAILY PRN sertraline [Zoloft] 100 MG tablet 300 mg PO HS quetiapine [Seroquel] 200 MG tablet 400 mg PO HS gabapentin 300 MG capsule 900 mg PO HS topiramate [Topamax] 200 MG tablet 200 mg PO HS albuterol sulfate [ProAir HFA] 200 PUFF HFA aerosol inhaler 2 puff Inhalation Q4H PRN pantoprazole 40 mg tablet,delayed release (DR/EC) 40 mg PO HS Patient Comments: TAKE ONE TABLET BY MOUTH EVERY DAY sucralfate [Carafate] 1 gram tablet 1 g PO QACHS Qty: 120 12RF famotidine 20 mg tablet 20 mg PO BID Qty: 0 0RF cyanocobalamin (vitamin B-12) 1,000 mcg/mL solution 1,000 mcg IM Q28D Patient Comments: INJECT 1000MCG (1ML) INTRAMUSCULARLY EVERY FOUR WEEKS docusate sodium 100 mg capsule 100 - 200 mg PO DAILY Patient Comments: TAKE ONE TO TWO CAPSULES BY MOUTH EVERY DAY Discharge Instructions Stand Alone Forms: [facility] Post-Op Cataract, [place] ([facility]) Discharge Orders Discharge Orders: Discharge Order (Routine); Ordered 01/08/25 Ordered By: Samir Tellez DS: Diagnosis Discharge Diagnosis (1) Posterior subcapsular age-related cataract of left eye: Status: Resolved (2) Nuclear age-related cataract, left eye: Status: Resolved
--- NOTE | 2025-01-08 08:27 | W.ANESPOSTOP ---
Postoperative Evaluation Date, Time and Location Date Performed: 01/08/25 Time Performed: 08:20 Patient Location: Day Surgery Unit Vital Signs Most Recent Imported Vital Signs: Most Recent Vital Signs Temp Pulse Resp BP Pulse Ox 36.4 C L 73 18 104/64 99 01/08/25 08:14 01/08/25 08:14 01/08/25 08:14 01/08/25 08:14 01/08/25 08:14 Pain Score Most Recent Pain Score: Most Recent Pain Score Pain Level 0 01/08/25 06:18 Assessment Mental Status: Awake (Alert & Oriented to Patient Baseline) Airway and Respiratory Function: Patent airway with normal (patient baseline) respiratory exam Cardiovascular Function: Hemodynamically Stable Hydration Status: Adequately Hydrated Nausea & Vomiting: No Nausea or Vomiting Pain: Pt. Denies Any Pain Peripheral Nerve Block: Patient did not receive a nerve block
[2025-01-08 08:37] VITALS: BP 105/68; PULSE 73; RESP 16; TEMP 36.8; O2SAT 95
== END 2025-01-08 08:41 | disposition home or self-care (01) ==
PROVIDERS: PCP Family Medicine; Visit Provider Ophthalmology
PROC: (CPT 66984; principal; 2025-01-08 07:30)
DX: H25.042 Posterior subcapsular polar age-related cataract, left eye (principal); H25.12 Age-related nuclear cataract, left eye
CPT/HCPCS: 66984; 00123; V2632; J2003

== ENCOUNTER 2025-02-04 17:32 | Outpatient (REF) | payer MEDICARE, MEDICAID, SELFPAY ==
--- NOTE | 2025-02-04 12:20 | PAPFT_PTH ---
PATIENT: Manisha Seth LOC: [facility]#:[id number] AGE/SX: 54/F ROOM: RE02/04/[address]: Molly Hinson V : 1970 BED: DIS: 02/04/2025 SPEC #: [id number] RECD: 02/04/25 18:22 STATUS: GERARD REJeanie #: [id number] JASON: 02/04/25 12:[address]: Molly Hinson V DEPT: [facility] Cytology RECD BY: Kalyani Johnson Tissues: 1 - CX/ENDOCX FOR PAP SMEARS Procedures: PAP THIN PREP/[facility] Screening HPV DNA PROBE Comments: [id number] (HPV 16 & 18/45)
[2025-02-04 16:14] LABS: HCT 37.4 % (36.0-46.0); HGB 12.3 g/dL (11.2-15.7); MCH 29.7 pg (27.0-33.0); MCHC 32.9 % (32.0-36.0); MCV 90 fL (80-95); MPV 9.9 fL (8.0-11.0); Platelet Count 273 10^3/uL (130-400); RBC 4.14 10^6/uL (3.93-5.22); WBC 11.54 10^3/uL (4.4-10.8)
[2025-02-04 17:02] LABS: Hemoglobin A1C 5.4 % (<5.7)
[2025-02-04 17:03] LABS: ALT 36 U/L (14-59); AST 21 U/L (15-37); Albumin 3.7 g/dL (3.4-5.0); Alkaline Phosphatase 72 U/L (46-116); Anion Gap 9.2 mmol/L (3-11); BUN 20 mg/dL (7-18); Bilirubin, Total 0.2 mg/dL (0.2-1.0); CO2 24.8 mmol/L (21.0-32.0); CREATININE 1.1 mg/dL (0.55-1.02); Calcium 8.8 mg/dL (8.5-10.1); Calculated LDL 117 mg/dL (<100); Chloride 107 mmol/L (98-107); Cholesterol 186 mg/dL (<200); Estimated GFR 59.34 (mL/min/1.73m2); Glucose 96 mg/dL (74-106); HDL Cholesterol 43 mg/dL (>or=50); Potassium 4.3 mmol/L (3.5-5.1); Sodium 141 mmol/L (136-145); Total Protein 6.4 g/dL (6.4-8.2); Triglyceride 131 mg/dL (<150)
[2025-02-10 07:16] LABS: Codeine Negative ng/mL (Cutoff: 25); Dihydrocodeine 296 ng/mL (Cutoff: 25); Hydrocodone 1237 ng/mL (Cutoff: 25); Hydromorphone 76 ng/mL (Cutoff: 25); Morphine Negative ng/mL (Cutoff: 25); Naloxone Negative ng/mL (Cutoff: 25); Norhydrocodone 4098 ng/mL (Cutoff: 25); Noroxycodone Negative ng/mL (Cutoff: 25); Noroxymorphone Negative ng/mL (Cutoff: 25); Opiates Interpretation Positive.
== END 2025-02-04 17:33 | disposition home or self-care (01) ==
LOC: NCHCN 17:32
PROVIDERS: PCP Family Medicine; Visit Provider Family Medicine
DX: Z00.00 Encounter for general adult medical examination without abnormal findings (principal); Z51.81 Encounter for therapeutic drug level monitoring; Z12.4 Encounter for screening for malignant neoplasm of cervix; E66.9 Obesity, unspecified
CPT/HCPCS: 80053; 80061; 80361; 80362; 80365; 85027; 88142; 83036; 87624

== ENCOUNTER 2025-03-19 00:43 | Outpatient (CLI) | payer MEDICARE, SELFPAY ==
--- NOTE | 2025-03-19 | DI.MAMMO_ITS ---
Exam(s) MAMMO SCREENING EXAM: MAMMO SCREENING CLINICAL HISTORY: Screening, Z12.31. TECHNIQUE: Bilateral full field digital CC and MLO mammographic images were obtained with 3D tomosynthesis and utilizing computer aided detection (CAD). COMPARISON: Prior mammograms were reviewed. FINDINGS: There has been no significant change in the appearance and distribution of the fibroglandular tissue. No CAD designations. There are no new spiculated masses nor malignant appearing microcalcification groups. There is no significant architectural distortion nor skin thickening-retraction. IMPRESSION: No radiographic evidence of malignancy. However, I note that on the technologist's notes that the patient apparently feels a lump in the upper-outer quadrant the left breast-left axillary tail region. Therefore this becomes a diagnostic study. Patient needs to return for exaggerated cc view of the left breast and left breast ultrasound. BI-RADS Category 0 - Incomplete: Need additional imaging evaluation Breast Density - Category B - There are scattered areas of fibroglandular density. Breast density Category C or D implies that the patient has dense breast tissue. Dense breast tissue can make it harder to find cancer on a mammogram. Dense breast tissue is also associated with an increased risk of breast cancer. This information about the result of the mammogram report was provided to the patient to raise their awareness. Use this report when you speak with the patient about their risks for breast cancer, which includes their family history. At that time, you may recommend additional screening tests (Ultrasound or MRI) as these tests may add significant information. A negative radiographic report should not delay biopsy if a dominant or clinically suspicious mass is present. Up to ten percent of cancers are not identified on mammography. A negative report may reinforce clinical impression. Adenosis and dense breasts may obscure an underlying neoplasm. False positive reports average 6 to 10%. Patient will receive a letter notifying them of these results.
== END 2025-03-19 01:03 ==
LOC: DI 00:43
PROVIDERS: PCP Family Medicine; Visit Provider Family Medicine
DX: Z12.31 Encounter for screening mammogram for malignant neoplasm of breast (principal); R92.323 Mammographic fibroglandular density, bilateral breasts
CPT/HCPCS: 77063; 77067

== ENCOUNTER 2025-03-23 11:47 | Outpatient (CLI) | payer MEDICARE, SELFPAY ==
--- NOTE | 2025-03-23 | DI.MAMMO_ITS ---
Exam(s) MG MAMMO SCREEN CALL BACK UNI US BREAST LT LIMITED EXAM: MG MAMMO SCREEN CALL BACK UNI CLINICAL HISTORY: F/U MAMMO,PT FEELS LUMP lt breast lt axillary tail, n63.32. TECHNIQUE: Exaggerated lateral craniocaudad digital Mammography views of the left breast with Tomosynthesis and left breast ultrasound. COMPARISON: 2020, 2022 and recent exam of 19 March 2025 FINDINGS: Mammography/Tomosynthesis: Masses: None seen. Architectural Distortion: None seen. Microcalcifictions: No suspicious pleomorphic-type are seen. Skin Thickening/Nipple Retraction: None. Left breast US: Echotexture: Normal appearance of the glandular tissue. Shadowing: No suspicious foci. Cyst: None. Solid lesions: None seen. Ductal dilation: None. Axilla: 2 normal appearing lymph nodes are noted measuring 1.71.2 cm. IMPRESSION: 1. No evidence of malignancy is noted. 2. Unless there is more urgent need, follow-up screening mammography is recommended, as per [place] [employer] guidelines. 3. The findings were discussed with the patient on the date of the examination. BI-RADS Category 1 - Negative Breast Density - Category A - The breast are almost entirely fatty. Breast density Category C or D implies that the patient has dense breast tissue. Dense breast tissue can make it harder to find cancer on a mammogram. Dense breast tissue is also associated with an increased risk of breast cancer. This information about the result of the mammogram report was provided to the patient to raise their awareness. Use this report when you speak with the patient about their risks for breast cancer, which includes their family history. At that time, you may recommend additional screening tests (Ultrasound or MRI) as these tests may add significant information. A negative radiographic report should not delay biopsy if a dominant or clinically suspicious mass is present. Up to ten percent of cancers are not identified on mammography. A negative report may reinforce clinical impression. Adenosis and dense breasts may obscure an underlying neoplasm. False positive reports average 6 to 10%. Patient will receive a letter notifying them of these results.
== END 2025-03-23 12:07 ==
PROVIDERS: PCP Family Medicine; Visit Provider Family Medicine
DX: Z12.31 Encounter for screening mammogram for malignant neoplasm of breast (principal); N63.32 Unspecified lump in axillary tail of the left breast
CPT/HCPCS: 76642; 77063; 77067

== ENCOUNTER → 2025-08-09 13:36 | Outpatient (CLI) | payer MEDICARE, SELFPAY ==
--- NOTE | 2025-08-09 | DI.CTLCSR_ITS ---
Exam(s) CT CHEST LUNG CANCER SCREEN EXAM: CT CHEST LUNG CANCER SCREEN CLINICAL HISTORY: TOBACCO DEPENDENCE CIGARETTES, F17.210, SCREENING LUNG CANCER. TECHNIQUE: Imaging Protocol: Low Dose Technique CONTRAST MATERIAL: None COMPARISON: CT CT CHEST LUNG CANCER SCREEN from 04/04/2023 FINDINGS: CHEST: LUNGS: There are no ominous pulmonary nodules. There are no confluent infiltrates. No pleural effusions. MEDIASTINUM: There is no obvious hilar nor mediastinal adenopathy. CARDIAC: Heart size is normal. There is very mild thinning of the anterior pericardium with thickness up to 6 mm at the apex level, unchanged from March 2023. Thecaliber of the thoracic aorta is within normal limits. OTHER: There is a partially included small nonobstructive calculus in the right kidney. The gallbladder surgically absent. Spleen size normal. No ascites in the upper abdomen. OSSEOUS: No significant osseous lesions.No fractures.. IMPRESSION: 1. No pulmonary nodules, infiltrates, nor pleural effusions. No intrathoracic adenopathy 2. Slight thickening of the anterior pericardium which is unchanged from March 2023. May imply small pericardial effusion. 3. Lung RADS Cat 1S - Negative: No nodules and definitely benign nodules. Other: Clinically Significant or Potentially Clinically Significant Findings (non lung cancer) Lung-RADS 1.0 CATEGORIES: Category 0 - Prior chest CT exam(s) being located for comparison. Category 1 - Annual screening in 12 months. No nodules or definitely benign nodules. Category 2 - Annual screening in 12 months. Benign appearance. Nodules with low likelihood of becoming active cancer. Category 3 - 6-month follow-up. Probably benign. Short-term follow-up suggested. Nodules with low likelihood of becoming active cancer. Category 4A - 3-month follow-up and CT/PET if >8 mm in size. Suspicious finding. Findings which require additional testing. Category 4B - Findings which require additional testing and tissue sampling. Category 4X - Category 3 or 4 nodules with additional features or imaging findings that increases the suspicion of malignancy. Modifier S- Potentially clinically significant findings (non lung cancer) RADIATION DOSE DELIVERED: 45.84mGy.cm Total DLP DATA REPOSITORY: All CT scans at this facility are submitted to the National Radiology Data Registry (NRDR) Dose Index Registry (DIR) with the [employer] ([employer]). RADIATION OPTIMIZATION: All CT scans at this facility use at least one of these dose optimization techniques: automated exposure control; mA and/or kV adjustment per patient size (includes targeted exams where dose is matched to clinical indication); or iterative reconstruction.
== END ==
LOC: DI 13:36
PROVIDERS: PCP Family Medicine; Visit Provider Family Medicine
DX: Z12.2 Encounter for screening for malignant neoplasm of respiratory organs (principal); F17.210 Nicotine dependence, cigarettes, uncomplicated; R91.8 Other nonspecific abnormal finding of lung field
CPT/HCPCS: 71271